=== PATIENT | female | born 1945 | race Caucasian/White ===

== ENCOUNTER 2021-12-02 09:09 | Emergency (ER) | payer MEDICARE, OTHER, SELFPAY ==
[2021-12-02 09:15] VITALS: BP 130/72; PULSE 110; RESP 22; O2SAT 93
[2021-12-02 09:18] VITALS: BP 130/78; PULSE 120; RESP 18; TEMP 36.8; O2SAT 96; BMI 24.5
[2021-12-02 09:30] VITALS: BP 138/86; PULSE 119; RESP 24; O2SAT 94
--- NOTE | 2021-12-02 09:30 | CRLHL7_ITS ---
For Patients: As a result of the Century Cures Act, medical imaging exams and procedure reports are released immediately into your electronic medical record. You may view this report before your referring provider. If you have questions, please contact your health care provider. INDICATION: COUGH, SOB HISTORY: Cough and shortness of breath. COMPARISON: 05/06/2017. TECHNIQUE: Chest one-view portable. FINDINGS: Heart size and pulmonary vasculature are normal. The lungs are clear. There is no pneumothorax. The central airway is normal. The osseous structures are intact. IMPRESSION: Lungs are clear. Dictated by Ghassan Shankar MD @ 12/02/2021 9:57:33 AM Dictated by: Ghassan Shankar MD @ 12/02/2021 09:57:42 (Electronically Signed)
--- NOTE | 2021-12-02 09:32 | ED_ITS ---
HPI - SOB/Dyspnea General Chief Complaint: Shortness of Breath/Dyspnea Stated Complaint: Oxygen low Time Seen by Provider: 12/02/21 09:11 History of Present Illness HPI Narrative: This 76-year-old female comes in with her daughter because of cough and shortness of breath. Her daughter had an oximeter and measured levels in the 70s and 80s% prior to arrival here. Upon arrival here her oximetry is in low to mid 90s on room air but her heart rate is increased at around 120 beats per m inute. She states that symptoms began yesterday and she does report feeling of shortness of breath and a hoarse voice. She also has a sore throat. She does have a prior history of COPD and diabetes. Related Data Home Medications Medication Instructions Recorded Confirmed atorvastatin 40 mg tablet 40 mg PO 11/19/21 11/19/21 blood sugar diagnostic (Contour #10 ea 11/19/21 11/19/21 Next Test Strips) bupropion HCl 150 mg tablet,12 hr tab PO 11/19/21 11/19/21 sustained-release cyclobenzaprine 10 mg tablet 10 mg PO 11/19/21 11/19/21 cyclosporine 0.05 % eye drops in a drp ophthalmic (eye) 11/19/21 11/19/21 dropperette (Restasis) lancets 33 gauge (TRUEplus Lancets) #100 ea 11/19/21 11/19/21 latanoprost 0.005 % eye drops drp ophthalmic (eye) 11/19/21 11/19/21 metformin 500 mg tablet,extended tab PO 11/19/21 11/19/21 release 24 hr amiwcclm-smoalbdxc-hpazazesk 3.5 otic (ear) 11/19/21 11/19/21 mg/mL-10,000 unit/mL-1 % ear solution sertraline 50 mg tablet 50 mg PO 11/19/21 11/19/21 Allergies Allergy/AdvReac Type Severity Reaction Status Date / Time tramadol Allergy Severe Anaphylaxis Verified 11/19/21 19:05 Penicillins Allergy Intermediate Swelling Verified 11/19/21 19:05 of Lip/Tongue/Throat codeine Allergy Mild Dizziness Verified 11/19/21 19:05 Sulfa (Sulfonamide Allergy Mild Rash Verified 11/19/21 19:05 Antibiotics) Review of Systems Status of ROS: Reports: 10 or more systems reviewed and unremarkable except as noted in History and below Narrative: Constitutional: No fevers, no weight gain or loss. Eyes: No discharge. No vision changes. HENT: Sore throat. Left ear pain and jaw pain from TMJ symptoms. Cardiovascular: No chest pain, no palpitations. Respiratory: Cough. Shortness of breath. Gastrointestinal: No abdominal pain, no vomiting, no diarrhea. Genitourinary: No dysuria, no hematuria. Musculoskeletal: Normal range of motion. Skin: No rashes, no pruritis. Neurological: No dizziness, weakness, sensory change, speech change. Endo/Heme/Allergies: No bruising or bleeding. No polydipsia. Pysch: no suicidality, no anxiety, no insomnia. All other systems reviewed and are negative. PFSH PFSH Social History Smoking Status: Former smoker What tobacco products do you use: cigarettes Years smoked: 60 Smoking quit date/years: >15 years ago Do you use any of these nicotine containing products: None Second hand tobacco smoke exposure: No How often do you have a drink containing alcohol: monthly or less How often do you have six or more drinks on one occasion: Less than monthly AUDIT-C Alcohol total score: 2 Non-prescribed substance use: denies use service: No Exam Narrative: Exam Narrative: Constitutional: Well-developed, well-nourished, no acute distress. HEENT: Normocephalic, atraumatic. Neck: Normal range of motion. Nontender. Supple. Heart: Regular. No murmurs. Tachycardia, rate 120 beats per minute. Intact distal pulses. Lungs: Mild decreased air movement with rhonchi. Abdomen: Normal bowel sounds. Nontender. No rebound tenderness. Genitalia: Deferred. Back: No midline tenderness. Normal range of motion. Extremities: Normal range of motion. No injury. Skin: Intact. No rash. Warm. No erythema or pallor. Neurologic: No altered sensation. No weakness. Alert and oriented. Psychiatric: No suicidality. No insomnia. Nursing notes and vitals signs are reviewed. Const: Vital Signs, click to edit/add: Vital Signs - 24 hr 12/02/21 09:18 12/02/21 10:51 Temperature 98.3 F Pulse Rate [Left P ulse Oximeter] 120 H 109 H Respiratory Rate 18 24 Blood Pressure [Le ft Upper Arm] 130/78 120/64 Pulse Oximetry 96 95 Oxygen Delivery Me thod Room Air Room Air Course Vital Signs Vital signs: Initial Vital Signs Temperature 98.3 F 12/02/21 09:18 Temperature Source Temporal Artery Scan 12/02/21 09:18 Pulse Rate 120 H 12/02/21 09:18 Pulse Rhythm 12/02/21 09:18 Pulse Strength 3+ Normal 12/02/21 09:18 Respiratory Rate 18 12/02/21 09:18 Blood Pressure 130/78 12/02/21 09:18 Blood Pressure Mean 95 12/02/21 09:18 Blood Pressure Position Sitting 12/02/21 09:18 Pulse Oximetry 96 12/02/21 09:18 Oxygen Delivery Method 12/02/21 09:18 Vital Signs Temperature 98.3 F 12/02/21 09:18 Pulse Rate 120 H 12/02/21 09:18 Respiratory Rate 18 12/02/21 09:18 Blood Pressure 130/78 12/02/21 09:18 Pulse Oximetry 96 12/02/21 09:18 Oxygen Delivery Method 12/02/21 09:18 Temperature 98.3 F 12/02/21 09:18 Pulse Rate 109 H 12/02/21 10:51 Respiratory Rate 24 12/02/21 10:51 Blood Pressure 120/64 12/02/21 10:51 Pulse Oximetry 95 12/02/21 10:51 Oxygen Delivery Method 12/02/21 10:51 MDM - SOB/Dyspnea MDM Narrative Medical decision making narrative: This 76-year-old female comes in with upper respiratory symptoms. Her home ox imeter showed readings in the 80s %. Upon arrival here her oximetry is 95%. She is maintaining oximetry on room air in the low to mid 90s. She did arrive with tachycardia. She did take Sudafed prior to arrival which may have increased her heart rate. In additionally she is rather fidgety with constant movements of her legs and extremities. This may also trigger some increased heart rate. Upon reexamination she has heart rate in the 90s now and is maintaining sufficient oximetry. Chest x-ray shows no sign of pneumonia. Lab results returned negative for strep, influenza, COVID, and RSV. The patient did receive a DuoNeb but states that she did not get the whole treatment because the oxygen tube became disconnected. She did not contact the nurse when this happened. Nevertheless she states she feels better and feels okay to return home. She did receive an IV dose of Solu-Medrol 125 mg. She understands that this will make her blood glucose elevate temporarily. Lab Data Labs: Lab Results 12/02/21 12/02/21 12/02/21 Range/Units 09:21 10:00 10:00 WBC 11.08 H (4.50-11.00) K/uL RBC 4.08 (4.00-5.20) m/uL Hgb 12.0 (12.0-16.0) gm/dL Hct 36.6 (33.0-51.0) % MCV 90 (80-100) fL MCH 29 (26-34) pg MCHC 33 (32-36) gm/dL RDW Coeff of Blank 12.9 (11.5-15.5) % Plt Count 191 (140-440) K/uL Neut % (Auto) 87.3 H (42.0-72.0) % Lymph % (Auto) 4.4 L (20-44) % [place] % (Auto) 7.8 (0.0-11.0) % Eos % (Auto) 0.3 (0.0-7.0) % Baso % (Auto) 0.1 (0.0-3.0) % Neut # (Auto) 9.70 H (1.7-7.0) K/uL Lymph # (Auto) 0.50 L (0.90-2.90) K/uL [place] # (Auto) 0.90 (0.00-0.90) K/UL Eos # (Auto) 0.00 (0.00-0.50) K/uL Baso # (Auto) 0.00 (0.00-0.30) K/uL Abs Immat Gran (auto) 0.01 (0.00-0.30) K/uL Sodium 132 L (135-149) mmol/L Potassium 4.1 (3.6-5.1) mmol/L Chloride 99 (96-114) mmol/L Carbon Dioxide 24 (20-32) mmol/L BUN 17 (7-30) mg/dL Creatinine 0.7 (0.5-1.5) mg/dL Estimated Creat Clear 41.97 Estimated GFR 90 ml/min Glucose 236 H (60-115) mg/dL Calcium 8.9 (8.4-10.6) mg/dL SARS-CoV-2 (PCR) Negative SARS-CoV-2 (Negative) Influenza Type A (PCR) Negative PCR FLU A (Negative) Influenza Type B (PCR) Negative PCR FLU B (Negative) RSV (PCR) Negative PCR RSV (Negative) Group A Strep DNA (No Detected) 12/02/21 Range/Units 10:00 WBC (4.50-11.00) K/uL RBC (4.00-5.20) m/uL Hgb (12.0-16.0) gm/dL Hct (33.0-51.0) % MCV (80-100) fL MCH (26-34) pg MCHC (32-36) gm/dL RDW Coeff of Blank (11.5-15.5) % Plt Count (140-440) K/uL Neut % (Auto) (42.0-72.0) % Lymph % (Auto) (20-44) % [place] % (Auto) (0.0-11.0) % Eos % (Auto) (0.0-7.0) % Baso % (Auto) (0.0-3.0) % Neut # (Auto) (1.7-7.0) K/uL Lymph # (Auto) (0.90-2.90) K/uL [place] # (Auto) (0.00-0.90) K/UL Eos # (Auto) (0.00-0.50) K/uL Baso # (Auto) (0.00-0.30) K/uL Abs Immat Gran (auto) (0.00-0.30) K/uL Sodium (135-149) mmol/L Potassium (3.6-5.1) mmol/L Chloride (96-114) mmol/L Carbon Dioxide (20-32) mmol/L BUN (7-30) mg/dL Creatinine (0.5-1.5) mg/dL Estimated Creat Clear Estimated GFR ml/min Glucose (60-115) mg/dL Calcium (8.4-10.6) mg/dL SARS-CoV-2 (PCR) (Negative) Influenza Type A (PCR) (Negative) Influenza Type B (PCR) (Negative) RSV (PCR) (Negative) Group A Strep DNA NOT DETECTED (No Detected) Imaging Data Chest x-ray: Radiologist's impression: Heart size and pulmonary vasculature are normal. The lungs are clear. There is no pneumothorax. The central airway is normal. The osseous structures are intact. ECG Data Attestation: I personally reviewed and interpreted this ECG as follows: Interpretation: Sinus tachycardia, rate 112 beats per minute. There are no specific ST or T- wave abnormalities. Discharge Plan Discharge Clinical Impression: Acute upper respiratory infection, Diabetes, COPD (chronic obstructive pulmonary disease) Patient Disposition: Home, Self-Care Condition: Stable Additional Instructions: Use albuterol nebulizer as needed. Continue other current medicines as prescribed. Return if worsening symptoms occur, especially if becoming short of breath. Prescriptions: No Action sertraline 50 mg tablet 50 mg PO cyclosporine [Restasis] 0.05 % dropperette ophthalmic (eye) atorvastatin 40 mg tablet 40 mg PO (DME) lancets [TRUEplus Lancets] 33 gauge misc See Rx Instructions .ROUTE .MEDSUPPLY Qty: 100 Rx Instructions: As directed (DME) Contour Next Test Strips Strip See Rx Instructions .ROUTE .MEDSUPPLY Qty: 10 Rx Instructions: As directed metformin 500 mg tablet extended release 24 hr PO bupropion HCl 150 mg tablet sustained-release 12 hr PO latanoprost 0.005 % drops ophthalmic (eye) cyclobenzaprine 10 mg tablet 10 mg PO Label Comments: TAKE 1 TABLET (10MG) BY MOUTH AT BEDTIME. [id number]-[id number]-IG 3.5-10,000-1 mg/mL-unit/mL-% solution otic (ear) Follow Up/Referrals: Forrest Wilson MD [Primary Care Provider] - Stand Alone Forms: [facility] Info Instructions
--- OUTSIDE RECORDS SUMMARY | 2021-12-02 09:37 | XMS_ITS | Encounter Summary ---
:1945 Author Organization [facility] Address [address] [place] [address] Care Team Providers Name Role Phone Unavailable Primary Care Provider Unavailable Encounter Details Date Type Department Care Team Description 05/03/2021 Orders Only [facility] Calvin Murillo for [place] [facility] OR MD Bruno screening for other [address] [facility] GASTROENTEROLOGY viral diseases [place] [id number] [facility] ([place]) [id number] [address] [place], [place] [address] (Wo rk) Social History Tobacco Use Types Packs/Day Years Used Date Smoking Tobacco: Never Assessed Sex Assigned at Date Recorded Not on file documented as of this encounter Plan of Treatment Scheduled Orders Name Type Priority Associated Diagnoses Order S chedule Asymptomatic COVID-19 Lab Routine Encounter for jean kwok Expected: 05/03/2021 Virus (Coronavirus) by PCR for other shoaib l diseases (Approximate), Expires: 2022 documented as of this encounter Visit Diagnoses Diagnosis Encounter for screening for other viral diseases - Primary documented in this encounter
--- OUTSIDE RECORDS SUMMARY | 2021-12-02 09:37 | XMS_ITS | Encounter Summary ---
:1945 Author Organization [place] Address [address] [facility] [address] Care Team Providers Name Role Phone System, Provider Not In Primary Care Provider Unavailable Reason for Visit Auth/Cert Specialty Diagnoses / Procedures Referred By Contact Refer red To Contact Surgery Diagnoses Common bile duct dilation Common bile duct dilation [K83.8] Rh Periop Services Procedures HC ERCP W/W/O EVARISTO OF SPEC-BRUSH/WASH ENDOSCOPIC RETROGRADE CHOLANGIOPANCREATOGRAPHY ENDOSCOPIC ULTRASOUND, ESOPHAGOSCOPY / UPPER GASTROINTESTINAL TRACT (GI) [address] [place] [address] Phone: Fax: Referral ID Status Reason Start Date Expiration Date Visits Requ ested Visits Authorized [id number] 1 1 Encounter Details Date Type Department Care Team Description 05/24/2021 Hospital Encounter [facility] Shane Murillo PreOP/PostOP MD [place] [address] [facility] [place], [place] [address] [facility] [id number] [facility] [phone] [place], [place] [address] (Wo rk) Social History Tobacco Use Types Packs/Day Years Used Date Smoking Tobacco: Former Cigarettes 1 40 Quit : 05/15/2019 Smokeless Tobacco: Never Tobacco Cessation: Counseling Given: No Alcohol Use Standard Drinks/Week Comments Yes 0 (1 standard drink = 0.6 oz pure alcoho l) rare Sex Assigned at Date Recorded Not on file COVID-19 Exposure Response Date Recorded In the last 10 days, have you been in contact with No / Unsu re 05/24/2021 12:33 PM CDT someone who was confirmed or suspected to have Coronavirus/COVID-19? documented as of this encounter Last Filed Vital Signs Vital Sign Reading Time Taken Comments Blood Pressure 149/76 05/24/2021 3:21 PM CDT Pulse 89 05/24/2021 3:21 PM CDT Temperature 36.4 ??C (97.6 ??F) 05/24/2021 3:21 PM CDT Respiratory Rate 16 05/24/2021 3:21 PM CDT Oxygen Saturation 98% 05/24/2021 3:21 PM CDT Inhaled Oxygen Concentration - - Weight 61.6 kg (135 lb 14.4 oz) 05/24/2021 12:50 PM CDT Height 163.6 cm (5' 4.41) 05/24/2021 12:50 PM CDT Body Mass Index 23.03 05/24/2021 12:50 PM CDT documented in this encounter Discharge Instructions Discharge InstructionsSiomara Jackson RN - 05/24/2021 2:57 PM CDT GENERAL ANESTHESIA OR SEDATION ADULT DISCHARGE INSTRUCTIONS SPECIAL PRECAUTIONS FOR 24 HOURS AFTER SURGERY IT IS NOT UNUSUAL TO FEEL LIGHT-HEADED OR FAINT, UP TO 24 HOURS AFTER SURGERY OR WHILE TAKING PAIN MEDICATION. IF YOU HAVE THESE SYMPTOMS; SIT FOR A FEW MINUTES BEFORE STANDING AND HAVE SOMEONE ASSIST YOU WHEN YOU GET UP TO WALK OR USE THE BATHROOM. YOU SHOULD REST AND RELAX FOR THE NEXT 24 HOURS AND YOU MUST MAKE ARRANGEMENTS TO HAVE SOMEONE STAY WITH YOU FOR AT LEAST 24 HOURS AFTER YOUR DISCHARGE. AVOID HAZARDOUS AND STRENUOUS ACTIVITIES. DO NOTMAKE IMPORTANT DECISIONS FOR [address] ANY VEHICLE OR OPERATE MECHANICAL EQUIPMENT FOR 24 HOURS FOLLOWING THE END OF YOUR SURGERY. EVEN THOUGH YOU MAY FEEL NORMAL, YOUR REACTIONS MAY BE AFFECTED BY THE MEDICATION YOU HAVE RECEIVED. DO NOT DRINK ALCOHOLIC BEVERAGES FOR 24 HOURS FOLLOWING YOUR SURGERY. DRINK CLEAR LIQUIDS (APPLE JUICE, ROHIT JASMINE, 7-UP, BROTH, ETC.). PROGRESS TO YOUR REGULAR DIET YOU FEEL ABLE. YOU MAY HAVE A DRY MOUTH, A SORE THROAT, MUSCLES ACHES OR TROUBLE SLEEPING. THESE SHOULD GO AWAY AFTER 24 HOURS. CALL YOUR DOCTOR FOR ANY OF THE FOLLOWING: SIGNS OF INFECTION (FEVER, GROWING TENDERNESS AT THE SURGERY SITE, A LARGE AMOUNT OF DRAINAGE OR BLEEDING, SEVERE PAIN, FOUL-SMELLING DRAINAGE, REDNESS OR SWELLING. IT HAS BEEN OVER 8 TO 10 HOURS SINCE SURGERY AND YOU ARE STILL NOT ABLE TO URINATE (PASS WATER). DR. SHANE MURILLO M.D. CLINIC PHONE NUMBER: [phone] [place] [facility] documented in this encounter Medications at Time of Discharge Medication Sig Dispensed Refills Start Date End Date Ascorbic Acid (VITAMIN C PO) Take 500 mg by 0 mouth daily atorvastatin (LIPITOR) 40 MG Take 40 mg by mouth 0 03/26/2021 tablet in the morning. At bedtime BIOTIN PO Take by mouth daily 0 blood glucose (CONTOUR NEXT daily 0 05/06/19 22 TEST) test strip buPROPion (WELLBUTRIN SR) Take 150 mg by 0 2020 150 MG 12 hr tablet mouth cetirizine (ZYRTEC) 10 MG Take 10 mg by mouth 0 tablet in the morning. cholecalciferol 50 MCG (2000 Take 2,000 Units by 0 10/23/2020 UT) tablet mouth in the morning. cyclobenzaprine (FLEXERIL) Take 10 mg by mouth 0 10/10/2020 10 MG tablet in the morning. At bedtime cycloSPORINE (RESTASIS) 0.05 Place 1 drop into 0 % ophthalmic emulsion both eyes in the morning and 1 drop in the evening. metFORMIN (GLUCOPHAGE-XR) Take 500 mg by 0 2021 500 MG 24 hr tablet mouth At Bedtime Multiple Vitamin Take 1 tablet by 0 (MULTIVITAMIN ADULT PO) mouth daily naproxen (NAPROSYN) 500 MG Take 500 mg by 0 12/27 tablet mouth as needed (every 12 hours) nitroGLYcerin (NITROSTAT) Place 0.4 mg under 0 0.4 MG sublingual tablet the tongue every 5 minutes as needed for chest pain States she has medication, never taken sertraline (ZOLOFT) 50 MG Take 50 mg by mouth 0 0 03/05/2021 tablet in the morning. VITAMIN D PO Take 4,000 Units by 0 mouth daily documented as of this encounter H&P Notes Marcelo Cardenas MD - 05/24/2021 1:08 PM CDT I have reviewed the surgical (or preoperative) H&P that is linked to this encounter, and examined the patient. There are no significant changes Clinical Conditions Present on Arrival: Clinically Significant Risk Factors Present on Admission Source Note - Scan, Provider - 05/22/2021 2:05 PM CDT documented in this encounter Plan of Treatment Not on filedocumented as of this encounter Procedures Procedure Name Priority Date/Time Associated Comments Diagnosis GLUCOSE BY METER Routine 05/24/2021 2:38 Results for PM CDT this procedure are in the results section. UPPER EUS Routine 05/24/2021 2:14 Results for PM CDT this procedure are in the results section. ENDOSCOPIC RETROGRADE 05/24/2021 1:56 Common bile duct CHOLANGIOPANCREATOGRAPHY PM CDT dilation INR STAT 05/24/2021 1:19 Results for PM CDT this procedure are in the results section. COMPREHENSIVE METABOLIC PANEL STAT 05/24/2021 1:19 Results for PM CDT this procedure are in the results section. CBC WITH PLATELETS STAT 05/24/2021 1:19 Result s for PM CDT this procedure are in the results section. GLUCOSE BY METER Routine 05/24/2021 1:12 Results for PM CDT this procedure are in the results section. documented in this encounter Results Glucose by meter (05/24/2021 2:38 PM CDT) athologist Signature GLUCOSE BY 90 70 - 99 05/24/2021 LABORATORY METER POCT mg/dL 2:46 PM CDT POC Specimen (Source) Anatomical Collection Method Collection Time Re ceived Time Location / / Volume Laterality Blood, Capillary BLOOD SPECIMEN / 05/24/2021 2:38 05/11 2:46 Unknown PM CDT PM CDT Shane [facility] POCT Performing Organization Address City/State/ZIP Code Phon e [place] [address] Care Lab [address] Lab (1st floor, no room number) UPPER EUS (05/24/2021 2:14 PM CDT) Component Value Ref Test Analysis Performed At [facility] gist Range Method Time Signature Upper EUS [facility] RADIOLOGY RESULTS Patient Name: Mildred Cox ? Procedure Date: 05/24 2:14 PM ? Account Num desire: [id number] Date of : 1945 ?Admit Type: Out patient Age: 75 ? Gender: Female Attending MD: SHANE MURILLO MD Total Sedation Yuri e: Instrument Name: 259 - Linear EUS ? Procedure: ?Upper EUS Indications: ?Common bile duct dilation (etiology unknown) seen ?on CT scan Providers: ?SHANE MURILLO MD (Doctor) Referring MD: ? Medicines: ?Monitored Anesthesia Care Complications: ?No immediate complications. Procedure: ?Pre-Anesthesia Assessment: ?- Prior to the procedure, a History and Physical ?was performed, and patient medications and ?allergies were reviewed. The patient is competent. ?The risks and benefits of the procedure and the ?sedation options and risks were discussed with the ?patient. All questions were answered and informed ?consent was obtained. Patient identification and ?proposed procedure were verified by the physician ?in the pre-procedure area. Mental Status ?E xamination: alert and oriented. Airway ?Examination: normal oropharyngeal airway and neck ?mobility. Respiratory Examination: clear to ?auscultation. CV Examination: normal. ASA Grade ?Assessment: II - A patient with mild systemic ?disease. After reviewing the risks and benefits, ?the patient was deemed in satisfactory condition to ?undergo the procedure. The anesthesia plan was to ?use general anesthesia. Immediately prior to ?administration of medications, the patient was ?re-assessed for adequacy to receive sedatives. The ?heart rate, respiratory rate, oxygen saturations, ?blood pressure, adequacy of pulmonary ventilation, ?and response to care were monitored throughout the ?procedure. The physical status of the patient was ?re-assessed after the procedure. ?After obtaining informed consent, the endoscope was ?passed under direct vision. Throughout the ?procedure, the patient's blood pressure, pulse, and ?oxygen saturations were monitored continuously. The ?Olympus Exera II Ultrasound Gastrovideoscope, ?Linear, Model # [id number], Endora #259, SN # ?[id number] was introduced through the mouth, and ?advanced to the third part of duodenum. The upper ?EUS was accomplished without difficulty. The ?patient tolerat ed the procedure well. ? Findings: ? ENDOSCOPIC FINDING: : ? The lower third of the esophagus was normal. ? The entire examined stomach was normal. ? The examined duodenum was normal. ? ENDOSONOGRAPHIC FINDING: : ? There was no sign of significant endosonographic abno rmality in the ? ampulla. No masses were identified. ? There was no sign of significant endosonographic abno rmality in the ? common bile duct. The maximum marii meter of the duct was 3 mm. No stones, ? no biliary sludge, ducts of normal caliber and ducts with regular ? contour were identified. ? Moderate hyperechoic material consistent with sludge was visualized ? endosonographically in the gallbladder. ? There was no sign of significant endosonographic abnormality in the left ? lobe of the liver and in the right lobe of the liver. No focal pathology ? was identified. ? There was no sign of significant endosonographic abno rmality in the ? pancreatic head, pancreatic body and pancreatic gaby l. The pancreatic ? duct measured up to 2 mm in diameter in the hea d and 1 mm in the body ? and tail. No masses, no cysts. ? The aortopulmonary region (level 5), subcarinal mediastinum (level 7) ? and celiac region (level 20) nodes were e ndosonographically normal. No ? pathologic lymphadenopathy was identified. ? Impression: ? - Normal lower third of eso phagus. ?- Normal stomach. ?- Normal examined duo denum. ?- There was no sign of significant pathology in the ?ampulla. ?- There was no sign of significant pathology in the ?common bile duct. ?- Hyperechoic material consistent with sludge was ?visualized endosonographically in the gallbladder. ?- There was no evidence of significant pathology in ?the left lobe of the liver and in the right lobe of ?the liver. ?- There was no sign of significant pathology in the ?pancreatic head, pancreatic body and pancreatic ?tail. Recommendation: ? - Observe patient's clinical course. ? Procedure Code(s): ? --- Professional --- ? 00810, Esophagogastroduodenoscopy , flexible, transoral; with endoscopic ? ultrasound examinatio n, including the esophagus, stomach, and either the ? duodenum or a surgically altered stomach where the jejunum is examined ? distal to the anastomosis CPT copyright 2020 [employer]. All rights reserved. The codes documented in this report are prelimin davidson and upon silo tender review may be revised to meet current compliance requirements. Shane Murillo M.D. SHANE MURILLO MD 05/24/2021 2:50:31 PM I was physically present for the entire viewing portion of t he exam. SHANE MURILLO MD Number of Addenda: 0 Note Initiated On: 05/24/2021 2:14 PM MRN: ?[id number] Procedure Date: ? 05/24/2021 2:14:28 PM Total Procedure Duration: 0 hours 5 minutes 24 seconds Estimated Blood Loss: ? Scope In: 2:23:37 PM Scope Out: 2:29:01 PM Specimen (Source) Anatomical Collection Method Collection Time Re ceived Time Location / / Volume Laterality 05/24/2021 2:14 PM CDT Shane Murillo MD PROCEDURES Performing Organization Address City/State/ZIP Code Phon e Number RADIOLOGY RESULTS INR (05/24/2021 1:19 PM CDT) P athologist Signature INR 1.03 0.85 - 1.15 05/24/2021 [facility] 1:51 PM CDT Specimen Anatomical Collection Method / Collection Time Recei ruth Time (Source) Location / Volume Laterality Blood STRUCTURE OF LEFT Venipuncture / 05/24/2021 1:19 05/24 1:27 HAND / Unknown Unknown PM CDT PM CDT Shane Murillo MD LAB - BLOOD ORDERABLES Performing Organization Address City/State/ZIP Code Ph[place] [phone] Care Lab [address] Lab (1st floor, no room number) (ABNORMAL) Comprehensive metabolic panel (05/24/2021 1:19 PM CDT) [facility] gist Method Time Signature Sodium 139 133 - 144 05/24/2021 LABORATORY mmol/L 2:10 PM CDT Potassium 4.1 3.4 - 5.3 05/24/2021 LABORATORY mmol/L 2:10 PM CDT Chloride 106 94 - 109 05/24/2021 LABORATORY mmol/L 2:10 PM CDT Carbon Dioxide 27 20 - 32 05/24/2021 LABORATORY (CO2) mmol/L 2:10 PM CDT Anion Gap 6 3 - 14 05/24/2021 LABORATORY mmol/L 2:10 PM CDT Urea Nitrogen 23 7 - 30 05/24/2021 LABORATORY mg/dL 2:10 PM CDT Creatinine 0.84 0.52 - 05/24/2021 [facility] 1.04 mg/dL 2:10 PM CDT Calcium 9.3 8.5 - 10.1 05/24/2021 LABORATORY mg/dL 2:10 PM CDT Glucose 107 (H) 70 - 99 05/24/2021 LABORATORY mg/dL 2:10 PM CDT Alkaline 47 40 - 150 05/24/2021 LABORATORY Phosphatase U/L 2:10 PM CDT AST 15 0 - 45 U/L 05/24/2021 [facility] 2:10 PM CDT ALT 26 0 - 50 U/L 05/24/2021 [facility] 2:10 PM CDT Protein Total 7.1 6.8 - 8.8 05/24/2021 LABORATORY g/dL 2:10 PM CDT Albumin 3.9 3.4 - 5.0 05/24/2021 LABORATORY g/dL 2:10 PM CDT Bilirubin Total 0.6 0.2 - 1.3 05/24/2021 LABORATORY mg/dL 2:10 PM CDT GFR Estimate 73 >60 05/24/2021 LABORATORY mL/min/1.7 2:10 PM CDT 3m2 Comment: Effective January 30, 2021 eGF Rcr in adults is calculated using the 2020 CKD-EPI creatinine equation which includ es age and gender (Johan et al., NEJ, DOI: 10.1056/UVDYvs2020838) Specimen Anatomical Collection Method / Collection Time Recei ruth Time (Source) Location / Volume Laterality Blood STRUCTURE OF LEFT Venipuncture / 05/24/2021 1:19 05/24 1:28 HAND / Unknown Unknown PM CDT PM CDT Shane Murillo MD LAB - BLOOD ORDERABLES Performing Organization Address City/State/ZIP Code [place] [phone] Care Lab [address] Lab (1st floor, no room number) (ABNORMAL) CBC with platelets (05/24/2021 1:19 PM CDT) Analysis Performed At Patho logist Time Signature WBC Count 4.1 4.0 - 11.0 05/24/2021 [facility] 10e3/uL 1:35 PM CDT RBC Count 4.93 3.80 - 05/24/2021 [facility] 5.20 1:35 PM CDT 10e6/uL Hemoglobin 14.5 11.7 - 05/24/2021 [facility] 15.7 g/dL 1:35 PM CDT Hematocrit 44.4 35.0 - 05/24/2021 [facility] 47.0 % 1:35 PM CDT MCV 90 78 - 100 05/24/2021 [facility] fL 1:35 PM CDT MCH 29.4 26.5 - 05/24/2021 [facility] 33.0 pg 1:35 PM CDT MCHC 32.7 31.5 - 05/24/2021 [facility] 36.5 g/dL 1:35 PM CDT RDW 13.5 10.0 - 05/24/2021 [facility] 15.0 % 1:35 PM CDT Platelet Count 144 (L) 150 - 450 05/24/2021 [facility] 10e3/uL 1:35 PM CDT Specimen Anatomical Collection Method / Collection Time Recei ruth Time (Source) Location / Volume Laterality Blood STRUCTURE OF LEFT Venipuncture / 05/24/2021 1:19 05/24 1:28 HAND / Unknown Unknown PM CDT PM CDT Shane Murillo MD LAB - BLOOD ORDERABLES Performing Organization Address City/State/ZIP Code [place] [phone] Care Lab [address] Lab (1st floor, no room number) Glucose by meter (05/24/2021 1:12 PM CDT) P athologist Signature GLUCOSE BY 95 70 - 99 05/24/2021 [facility] METER POCT mg/dL 1:19 PM CDT POC Specimen (Source) Anatomical Collection Method Collection Time Re ceived Time Location / / Volume Laterality Blood, Capillary BLOOD SPECIMEN / 05/24/2021 1:12 05/11 1:19 Unknown PM CDT PM CDT Shane Murillo MD LAB - BEAKER POCT Performing Organization Address City/State/ZIP Code Phon e Number [place] [address] Care Lab [address] Lab (1st floor, no room number) documented in this encounter Visit Diagnoses Not on filedocumented in this encounter Administered Medications Inactive Administered Medications - up to 3 most recent administrations Medication Order MAR Action Action Date Dose Rate Site fentaNYL (PF) (SUBLIMAZE) injection 25 m cg 25 mcg, Intravenous, EVERY 5 MIN PRN, moderate to rey re pain, Starting on [facility] 05/24/21 at 1439, Administer fentaNYL (MORELAND BLIMAZE) for acute pain control. Move to HYDROmorphone (DILAUDID): - IF patient has received up to 4 doses (100 mcg) of fentaNYL (SUBLIMAZE), OR - IF severe pain (pain score greater than or equal to seven (7) or inability of patient to par ticipate in post op recovery due to pain) AFTER 2 doses fentaNYL (SUBLIMAZE). WAIT 5 minutes AFTER last fentaNYL (SUBLIMAZE) dose before administering HYDROmorphone (DILAUDID). Postop Anesthesia Phase I only. Notify Provider to assess for uncontroll ed pain or analgesic side effects. Do NOT revert back to fentanyl (SUBLIMAZE) afte r moving to HYDROmorphone (DILAUDID)., PACU fentaNYL (PF) (SUBLIMAZE) injection 25 m cg 25 mcg, Intravenous, EVERY 15 MIN PRN, other, acute pa in while in Phase II, Starting on Gisell 05/24/21 at 1439, Up to a total of 100 mcg. Use as a short acting IV agent for acute pain control. Patient must be monitore d a minimum of 30 minutes before leaving the facility and meet all Phase II disc harge criteria., Phase ll flumazenil (ROMAZICON) injection 0.2 mg 0.2 mg, Intravenous, EVERY 1 MIN PRN, benzodiazepine r eversal, over sedation, Administer over 1 Minutes, Starting on [facility] 05/24/21 at 1450, For 12 hours, Give over 15 seconds. If inadequate response after 45 seconds, may repeat up to a MAX total dose of 1 mg. Continue monitoring until discharge criteria are met for a minimum of 2 hours Irritant. Use with caution in patients on nova odiazepine therapy. HYDROmorphone (DILAUDID) injection 0.2 m g 0.2 mg, Intravenous, EVERY 5 MIN PRN, moderate to rey re pain, Starting on [facility] 05/24/21 at 1439, Administer HYDROmorphon e (DILAUDID) up to a total of 5 doses (1 mg) for moderate to severe pain. Notify Provider to assess for uncontrolled pain or analgesic side effects., PACU ketorolac (TORADOL) injection 15 mg 15 mg, Intravenous, EVERY 6 HOURS PRN, moderate to sev ere pain, Starting on [facility] 05/24/21 at 1440, For 5 days, IF celecoxib (celeBREX) w as given pre-operatively, start ketorolac (TORADOL) 12 hours after celecoxib (celeBREX) given. Can cause pain on injection. If ordered intravenously (IV) : administ er through a running maintenance fluid over 1 minute followed by a flush. If patient complains of pain on injection, may dilute 15-30 mg in 5 mL and push ove r 1 to 2 minutes. , PACU/Phase II labetalol (NORMODYNE/TRANDATE) injection 10 mg 10 mg, Intravenous, ONCE PRN, other, for Systolic Blood Pressure greater than 160 mmHg while Heart Rate greater than 60 bp m, Starting on [facility] 05/24/21 at 1439, For 1 dose, For PACU USE ONLY. PROTECT FROM LIGHT., PACU lactated ringers infusion at 25 mL/hr, Intravenous, CONTINUOUS, IF patient NOT on dialysis., Pre-procedure, Starting on [facility] 05/24/21 at 1300, Until [facility] 05/24/21 at 1728 lactated ringers infusion at 100 mL/hr, Intravenous, CONTINUOUS, Continue until IV catheter is weaned, PACU/Phase II, Starting on Gisell 05/24/21 at 1500, Until [facility] 05/24/21 at 1728 lidocaine (LMX4) cream Topical, EVERY 1 HOUR PRN, pain, with VAD insertion, S tarting on [facility] 05/24/21 at 1255, Apply at least 30 minutes prior to VAD insertion in divided doses as needed for size of site for insertion. MAX Dose: 2.5 g (?? of 5 g tube) Do NOT give if patient has a history of allergy to any local anesthetic or any mansoor product. Do NOT use both lidocaine intradermal/subcu taneous injection and the lidocaine cream on the same site., Pre-procedure lidocaine (LMX4) cream Topical, EVERY 1 HOUR PRN, pain, with VAD insertion, S tarting on [facility] 05/24/21 at 1255, Apply at least 30 minutes prior to VAD insertion in divided doses as needed for size of site for insertion. MAX Dose: 2.5 g (?? of 5 g tube) Do NOT give if patient has a history of allergy to any local anesthetic or any mansoor product. Do NOT use both lidocaine intradermal/subcu taneous injection and the lidocaine cream on the same site., Pre-procedure lidocaine (LMX4) cream Topical, EVERY 1 HOUR PRN, pain, with VAD insertion, S tarting on [facility]isell 05/24/21 at 1256, Apply at least 30 minutes prior to VAD insertion in divided doses as needed for size of site for insertion. MAX Dose: 2.5 g (?? of 5 g tube) Do NOT give if patient has a history of allergy to any local anesthetic or any mansoor product. Do NOT use both lidocaine intradermal/subcu taneous injection and the lidocaine cream on the same site., Pre-procedure lidocaine 1 % 0.1-1 mL 0.1-1 mL, Other, EVERY 1 HOUR PRN, mild pain with VAD insertion, Starting on [facility] 05/24/21 at 1255, MAX dose 1 mL subcutane ous OR intradermal along the side of the vein in divided doses as needed for VAD insertion. Do NOT give if patient has a history of allergy to any local anesthet ic or any mansoor product. Do NOT use both lidocaine intradermal/subcutaneous injec tion and the lidocaine cream on the same site., Pre-procedure lidocaine 1 % 0.1-1 mL 0.1-1 mL, Other, EVERY 1 HOUR PRN, mild pain with VAD insertion, Starting on [facility] 05/24/21 at 1255, MAX dose 1 mL subcutane ous OR intradermal along the side of the vein in divided doses as needed for VAD insertion. Do NOT give if patient has a history of allergy to any local anesthet ic or any mansoor product. Do NOT use both lidocaine intradermal/subcutaneous injec tion and the lidocaine cream on the same site., Pre-procedure lidocaine 1 % 0.1-1 mL Given 05/24/2021 2:16 PM CDT 30 mg 0.1-1 mL, Other, EVERY 1 HOUR PRN, mild pain with VAD insertion, Starting on [facility] 05/24/21 at 1256, MAX dose 1 mL subcutaneous OR intradermal along the side of the vein in divided doses as needed for VAD insertion. Do NOT give if patient has a history of allergy to any local anesthetic or any mansoor product. Do NOT use both lidocaine intradermal/subcutaneous injection and the lidocaine cream on the same site., Pre-procedure meperidine (DEMEROL) injection 12.5 mg 12.5 mg, Intravenous, EVERY 15 MIN PRN, post anesthesia shivering, Starting on [facility] 05/24/21 at 1440, For 2 doses, PACU/Phase II naloxone (NARCAN) injection 0.2 mg 0.2 mg, Intravenous, EVERY 2 MIN PRN, op ioid reversal, Starting on [facility] 05/24/21 at 1450, Administer intravenous route when available and notify provider when administered. For unintended sedation or respiratory depression if all of the below criteria are met: ~ respiratory rate LES S than or EQUAL to 8. ~SaO2 less than 92% and or/end-tidal CO2 is greater than 50. ~ the patient is receiving an opioid, has unintended sedations assessed as RASS (-3), and is cur rently not on mechanical ventilation. RASS scale moderate (-3) is movement or eye opening to voice but no eye contact. Patient Monitoring Once the patient has demonstrated a response to the naloxone, continue to monitor respiratory rate, depth, oxygen saturation and end-tidal CO2 (if available) every 15 mi nutes x 2, then every 30 minutes x 2, then every 1 hour x 1 after each naloxone dose. Consider tr ansfer to ICU if patient respiratory parameters have not improved after 4 nalox one doses. naloxone (NARCAN) injection 0.2 mg 0.2 mg, Intramuscular, EVERY 2 MIN PRN, opioid reversal, Starting on [facility] 05/24/21 at 1450, Administer intramuscular if an int ravenous route is not available and notify provider when administered. For unintend ed sedation or respiratory depression if all of the below criteria are met: ~ respiratory rate LESS than or EQUAL to 8. ~SaO2 less than 92% and or/end-tidal CO2 is greater th an 50. ~ the patient is receiving an opioid, has unintended sedations assessed as RASS (-3), and is currently not on mechanical ventilation. RASS scale moderate (-3) is movement or eye opening to voice but no eye contact. Patient Monitoring Once the patient has demonstrated a response to the naloxone, continue to m onitor respiratory rate, depth, oxygen saturation and end-tidal CO2 (if availab le) every 15 minutes x 2, then every 30 minutes x 2, then every 1 hour x 1 after each naloxone dose. Consider transfer to ICU if patient respiratory parameters have not improved after 4 naloxone doses. naloxone (NARCAN) injection 0.4 mg 0.4 mg, Intravenous, EVERY 2 MIN PRN, op ioid reversal, Starting on Gisell 05/24/21 at 1450, Administer intravenous route when available and notify provider when administered. For unintended sedation or respiratory depression if all of the below criteria are met: ~ respiratory rate LES S than or EQUAL to 8. ~ SaO2 less than 92% and or/end-tidal CO2 is greater than 50. ~ the patient is receiving an opioid, has unintended sedation assessed as RASS (-4 ) or (-5) and patient is currently not on mechanical ventilation. RASS scale (-4) is deep sedation with no response to voice but movement or eye opening to physical stimulation. R ASS scale (-5) is unarousable. Patient Monitoring Once the patient has demonstrated a response to the naloxone, continue to monitor respiratory rate, depth, oxygen saturation and end-tidal CO2 (if available) every 15 mi nutes x 2, then every 30 minutes x 2, then every 1 hour x 1 after each naloxone dose. Consider tr ansfer to ICU if patient respiratory parameters have not improved after 4 nalox one doses. naloxone (NARCAN) injection 0.4 mg 0.4 mg, Intramuscular, EVERY 2 MIN PRN, opioid reversal, Starting on Gisell 05/24/21 at 1450, Administer intramuscular if an int ravenous route is not available and notify provider when administered. For unintend ed sedation or respiratory depression if all of the below criteria are met: ~ res piratory rate LESS than or EQUAL to 8. ~ SaO2 less than 92% and or/end-tidal CO2 is greater andrea n 50. ~ the patient is receiving an opioid, has unintended sedation assessed as RASS (-4) or (-5) and patient is currently not on mechanical ventilation. RA SS scale (-4) is deep sedation with no response to voice but movement or eye opening to physical stimulation. RASS scale (-5) is unarousa ble. Patient Monitoring Once the patient has demonstrated a response to the nalox one, continue to monitor respiratory rate, depth, oxygen saturation and end-tidal CO2 (if availab le) every 15 minutes x 2, then every 30 minutes x 2, then every 1 hour x 1 after each naloxone dose. Consider transfer to ICU if patient respiratory parameters have not improved after 4 naloxone doses. ondansetron (ZOFRAN) injection 4 mg 4 mg, Intravenous, EVERY 30 MIN PRN, alverto sea, Administer over 2-5 Minutes, Starting on Gisell 05/24/21 at 1440, For 2 doses, MAX total dose = 8 mg, including OR dosing. If not resolved in 15 minutes, then go to step 2 [prochlo rperazine (COMPAZINE), if ordered]. Irritant., PACU/Phase II ondansetron (ZOFRAN) injection 4 mg 4 mg, Intravenous, EVERY 6 HOURS PRN, nausea, vomiting , Administer over 2-5 Minutes, Starting on Gisell 05/24/21 at 1450, This is Step 1 of nausea and vomiting management. If nausea not resolved in 15 minutes, go t o Step 2 prochlorperazine (COMPAZINE). Irritant. ondansetron (ZOFRAN-ODT) ODT tab 4 mg 4 mg, Oral, EVERY 30 MIN PRN, nausea, St arting on Gisell 05/24/21 at 1440, For 2 doses, MAX total dose = 8 mg, including OR dosi ng. If not resolved in 15 minutes, then go to step 2 [prochlorperazine (COMPAZINE), if ordered]. With dry hands, peel back foil backing and gently remove tablet. Do not push ora l disintegrating tablet through foil backing. Administer immediately on tongue and oral disintegrating tablet dissolves in seconds, then swallow with saliva. Liquid not required., PACU/Phase II ondansetron (ZOFRAN-ODT) ODT tab 4 mg 4 mg, Oral, EVERY 6 HOURS PRN, nausea, v omiting, Starting on Gisell 05/24/21 at 1450, This is Step 1 of nausea and vomiting management. If n ausea not resolved in 15 minutes, go to Step 2 prochlorperazine (COMPAZINE). Do not push through foil backing. Peel back foil and gently remove. Place on to ngue immediately. Administration with liquid unnecessary W ith dry hands, peel back foil backing and gently remove tablet. Do not push oral d isintegrating tablet through foil backing. Administer immediately on tongue and oral disintegrati ng tablet dissolves in seconds, then swallow with saliva. Liquid not required . prochlorperazine (COMPAZINE) injection 5 mg 5 mg, Intravenous, EVERY 6 HOURS PRN, nausea, vomiting , Administer over 1-2 Minutes, Starting on Fri05/24/21 at 1440, PACU/Phase I I sodium chloride (PF) 0.9% PF flush 3 mL 3 mL, Intracatheter, EVERY 8 HOURS, First dose on Fri05/24/21 at 1300, to lock peripheral IV dormant line, Pre-procedure sodium chloride (PF) 0.9% PF flush 3 mL 3 mL, Intracatheter, EVERY 1 MIN PRN, li ne flush, other, to ensure patency or to lock dormant line, Starting on Fri05/24/21 at 1255, Pr e-procedure sodium chloride (PF) 0.9% PF flush 3 mL 3 mL, Intracatheter, EVERY 8 HOURS, First dose on Fri05/24/21 at 1300, to lock peripheral IV dormant line, Pre-procedure sodium chloride (PF) 0.9% PF flush 3 mL 3 mL, Intracatheter, EVERY 1 MIN PRN, li ne flush, other, to ensure patency or to lock dormant line, Starting on Gisell 05/24/21 at 1255, Pr e-procedure sodium chloride (PF) 0.9% PF flush 3 mL 3 mL, Intracatheter, EVERY 8 HOURS, First dose on Gisell 05/24/21 at 1300, to lock peripheral IV dormant line, Pre-procedure sodium chloride (PF) 0.9% PF flush 3 mL 3 mL, Intracatheter, EVERY 1 MIN PRN, li ne flush, other, to ensure patency or to lock dormant line, Starting on Gisell 05/24/21 at 1256, Pr e-procedure documented in this encounter Active and Recently Administered Medications Times are shown in CDT. Scheduled Medication Order 05/22/2021 05/23/2021 05/24/2021 sodium chloride (PF) 0.9% PF flush 3 mL 1300 (Canceled Entry - Provider: Orders Generic Provider - Comment: Automatically canceled at discontinue of medication order) 3 mL, Intracatheter, EVERY 8 HOURS, Firs t dose on Gisell 05/24/21 at 1300, to lock peripheral IV dormant line, Pre-procedure sodium chloride (PF) 0.9% PF flush 3 mL 1300 (Canceled Entry - Provider: Orders Generic Provider - Comment: Automatically canceled at discontinue of medication order) 3 mL, Intracatheter, EVERY 8 HOURS, Firs t dose on Gisell 05/24/21 at 1300, to lock peripheral IV dormant line, Pre-procedure sodium chloride (PF) 0.9% PF flush 3 mL 1300 (Canceled Entry - Provider: Orders Generic Provider - Comment: Automatically canceled at discontinue of medication order) 3 mL, Intracatheter, EVERY 8 HOURS, Firs t dose on Gisell 05/24/21 at 1300, to lock peripheral IV dormant line, Pre-procedure Continuous Medication Order 05/22/2021 05/23/2021 05/24/2021 lactated ringers infusion 1300 ( Canceled Entry - Provider: Orders Generic Provider - Comment: Automatically canceled at discontinue of medication order) at 25 mL/hr, Intravenous, CONTINUOUS, IF patient NOT on dialysis., Pre- procedure, Starting on Gisell 05/24/21 at 1300, Until Gisell 05/24/21 at 1728 lactated ringers infusion 1500 ( Canceled Entry - Provider: Orders Generic Provider - Comment: Automatically canceled at discontinue of medication order) at 100 mL/hr, Intravenous, CONTINUOUS, C ontinue until IV catheter is weaned, PACU/Phase II, Starting on Gisell 05/24/21 at 1500, Until Gisell 05/24/21 at 1728 PRN Medication Order 05/22/2021 05/23/2021 05/24/2021 fentaNYL (PF) (SUBLIMAZE) injection 25 mcg 25 mcg, Intravenous, EVERY 5 MIN PRN, mo derate to severe pain, Starting on Gisell 05/24/21 at 1439, Administer fentaNYL (SUBLIMAZE) for acute pain control. Move to HYDROmorphone (DILAUDID): - IF patient has received up to 4 doses (100 mcg) of fen taNYL (SUBLIMAZE), OR - IF severe pain (pain score greater than or equal to seven (7) or inability of patient to participate in post op recovery due to pain) AFTE R 2 doses fentaNYL (SUBLIMAZE). WAIT 5 m inutes AFTER last fentaNYL (SUBLIMAZE) dose before administering HYDROmorphone (DILAUDID). Postop Anesthesia Phase I only. Notify Provider to assess for uncontrol led pain or analgesic side effects. Do N OT revert back to fentanyl (SUBLIMAZE) after moving to HYDROmorphone (DILAUDID)., PACU fentaNYL (PF) (SUBLIMAZE) injection 25 mcg 25 mcg, Intravenous, EVERY 15 MIN PRN, o ther, acute pain while in Phase II, Starting on Gisell 05/24/21 at 1439, Up to a total of 100 mcg. Use as a short acting IV agent for acute pain control. Patient must be monitored a minimum of 30 minutes be fore leaving the facility and meet all Phase II discharge criteria., Phase ll flumazenil (ROMAZICON) injection 0.2 mg 0.2 mg, Intravenous, EVERY 1 MIN PRN, be nzodiazepine reversal, over sedation, Administer over 1 Minutes, Starting on Gisell 05/24/21 at 1450, For 12 hours, Give over 15 seconds. If inadequate response after 45 seconds, may repeat up to a MAX tota l dose of 1 mg. Continue monitoring until discharge criteria are met for a minimum of 2 hours Irritant. Use with caution in patients on benzodiazepine therapy. HYDROmorphone (DILAUDID) injection 0.2 mg 0.2 mg, Intravenous, EVERY 5 MIN PRN, mo derate to severe pain, Starting on Gisell 05/24/21 at 1439, Administer HYDROmorphone (DILAUDID) up to a total of 5 doses (1 mg) for moderate to severe pain. Notify Pr ovider to assess for uncontrolled pain or analgesic side effects ., PACU ketorolac (TORADOL) injection 15 mg 15 mg, Intravenous, EVERY 6 HOURS PRN, m oderate to severe pain, Starting on Gisell 05/24/21 at 1440, For 5 days, IF celecoxib (celeBREX) was given pre-operatively, start ketorolac (TORADOL) 12 hours after c elecoxib (celeBREX) given. Can cause hermes n on injection. If ordered intravenously (IV) : administer through a running maintenance fluid over 1 minute followed by a flush. If patient complains of pain on injection, may dilute 15-30 mg in 5 mL a nd push over 1 to 2 minutes. , PACU/Phase II labetalol (NORMODYNE/TRANDATE) injection 10 mg 10 mg, Intravenous, ONCE PRN, other, for Systolic Blood Pressure greater than 160 mmHg while Heart Rate greater than 60 bpm, Starting on Gisell 05/24/21 at 1439, For 1 dose, For PACU USE ONLY. PROTECT FROM LIGHT., PACU lidocaine (LMX4) cream Topical, EVERY 1 HOUR PRN, pain, with VA D insertion, Starting on Gisell 05/24/21 at 1255, Apply at least 30 minutes prior to VAD insertion in divided doses as needed for size of site for insertion. MAX Dose : 2.5 g (?? of 5 g tube) Do NOT give if patient has a history of allergy to any local anesthetic or any mansoor product. Do NOT use both lidocaine intradermal/subcutaneous injection and the lidocaine cream on the same site., Pre-procedure lidocaine (LMX4) cream Topical, EVERY 1 HOUR PRN, pain, with VA D insertion, Starting on Gisell 05/24/21 at 1255, Apply at least 30 minutes prior to VAD insertion in divided doses as needed for size of site for insertion. MAX Dose : 2.5 g (?? of 5 g tube) Do NOT give if patient has a history of allergy to any local anesthetic or any mansoor product. Do NOT use both lidocaine intradermal/subcutaneous injection and the lidocaine cream on the same site., Pre-procedure lidocaine (LMX4) cream Topical, EVERY 1 HOUR PRN, pain, with VA D insertion, Starting on Gisell 05/24/21 at 1256, Apply at least 30 minutes prior to VAD insertion in divided doses as needed for size of site for insertion. MAX Dose : 2.5 g (?? of 5 g tube) Do NOT give if patient has a history of allergy to any local anesthetic or any mansoor product. Do NOT use both lidocaine intradermal/subcutaneous injection and the lidocaine cream on the same site., Pre-procedure lidocaine 1 % 0.1-1 mL 0.1-1 mL, Other, EVERY 1 HOUR PRN, mild pain with VAD insertion, Starting on Gisell 05/24/21 at 1255, MAX dose 1 mL subcutaneous OR intradermal along the side of the vein in divided doses as needed for VAD insertion. Do NOT give if patient has a history of allergy to any local anesthetic or any mansoor product. Do NOT use both lidocaine intradermal/subcutaneous injection and the lidocaine cream on the same site., Pre-procedure lidocaine 1 % 0.1-1 mL 0.1-1 mL, Other, EVERY 1 HOUR PRN, mild pain with VAD insertion, Starting on Gisell 05/24/21 at 1255, MAX dose 1 mL subcutaneous OR intradermal along the side of the vein in divided doses as needed for VAD insertion. Do NOT give if patient has a history of allergy to any local anesthetic or any mansoor product. Do NOT use both lidocaine intradermal/subcutaneous injection and the lidocaine cream on the same site., Pre-procedure lidocaine 1 % 0.1-1 mL 1416 (Giv en - Provider: Kevin Roblero APRN [employer]) 0.1-1 mL, Other, EVERY 1 HOUR PRN, mild pain with VAD insertion, Starting on Gisell 05/24/21 at 1256, MAX dose 1 mL subcutaneous OR intradermal along the side of the vein in divided doses as needed for VAD insertion. Do NOT give if patient has a history of allergy to any local anesthetic or any mansoor product. Do NOT use both lidocaine intradermal/subcutaneous injection and the lidocaine cream on the same site., Pre-procedure meperidine (DEMEROL) injection 12.5 mg 12.5 mg, Intravenous, EVERY 15 MIN PRN, post anesthesia shivering, Starting on Gisell 05/24/21 at 1440, For 2 doses, PACU/Phase II naloxone (NARCAN) injection 0.2 mg 0.2 mg, Intravenous, EVERY 2 MIN PRN, op ioid reversal, Starting on Gisell 05/24/21 at 1450, Administer intravenous route when available and notify provider when administered. For unintended sedation or resp iratory depression if all of the below c riteria are met: ~ respiratory rate LESS than or EQUAL to 8. ~SaO2 less than 92% and or/end-tidal CO2 is greater than 50. ~ the patient is receiving an opioid, stallings s unintended sedations assessed as RASS (-3), and is currently not on mechanical ventilation. RASS scale moderate (-3) is movement or eye opening to voice but no eye contact. Patient Monitoring Once the patient has demonstrated a response to the naloxone, continue to monitor respiratory rate, depth, oxygen saturation and end-tidal CO2 (if available) every 15 minutes x 2, then every 30 minutes x 2, the n every 1 hour x 1 after each naloxone d ose. Consider transfer to ICU if patient respiratory parameters have not improved after 4 naloxone doses. naloxone (NARCAN) injection 0.2 mg 0.2 mg, Intramuscular, EVERY 2 MIN PRN, opioid reversal, Starting on Gisell 05/24/21 at 1450, Administer intramuscular if an intravenous route is not available and notify provider when administered. For uni ntended sedation or respiratory depressi on if all of the below criteria are met: ~ respiratory rate LESS than or EQUAL to 8. ~SaO2 less than 92% and or/end-tidal CO2 is greater than 50. ~ the patient is receiving an opioid, has unintended sed ations assessed as RASS (-3), and is currently not on mechanical ventilation. RASS scale moderate (-3) is movement or eye opening to voice but no eye contact. Pat ient Monitoring Once the patient has dem onstrated a response to the naloxone, continue to monitor respiratory rate, depth, oxygen saturation and end-tidal CO2 (if available) every 15 minutes x 2, then e very 30 minutes x 2, then every 1 hour x 1 after each naloxone dose. Consider transfer to ICU if patient respiratory parameters have not improved after 4 naloxone doses. naloxone (NARCAN) injection 0.4 mg 0.4 mg, Intravenous, EVERY 2 MIN PRN, op ioid reversal, Starting on Gisell 05/24/21 at 1450, Administer intravenous route when available and notify provider when administered. For unintended sedation or resp iratory depression if all of the below c riteria are met: ~ respiratory rate LESS than or EQUAL to 8. ~ SaO2 less than 92% and or/end-tidal CO2 is greater than 50. ~ the patient is receiving an opioid, h as unintended sedation assessed as RASS (-4) or (-5) and patient is currently not on mechanical ventilation. RASS scale (-4) is deep sedation with no response to voice but movement or eye opening to phy sical stimulation. RASS scale (-5) is un arousable. Patient Monitoring Once the patient has demonstrated a response to the naloxone, continue to monitor respiratory rate, depth, oxygen saturation and end -tidal CO2 (if available) every 15 minut es x 2, then every 30 minutes x 2, then every 1 hour x 1 after each naloxone dose. Consider transfer to ICU if patient respiratory parameters have not improved after 4 naloxone doses. naloxone (NARCAN) injection 0.4 mg 0.4 mg, Intramuscular, EVERY 2 MIN PRN, opioid reversal, Starting on Gisell 05/24/21 at 1450, Administer intramuscular if an intravenous route is not available and notify provider when administered. For uni ntended sedation or respiratory depressi on if all of the below criteria are met: ~ respiratory rate LESS than or EQUAL to 8. ~ SaO2 less than 92% and or/end- tidal CO2 is greater than 50. ~ the patient i s receiving an opioid, has unintended se dation assessed as RASS (-4) or (-5) and patient is currently not on mechanical ventilation. RASS scale (-4) is deep sedation with no response to voice but moveme nt or eye opening to physical stimulatio n. RASS scale (-5) is unarousable. Patient Monitoring Once the patient has demonstrated a response to the naloxone, continue to monitor respiratory rate, depth, o xygen saturation and end-tidal CO2 (if a vailable) every 15 minutes x 2, then every 30 minutes x 2, then every 1 hour x 1 after each naloxone dose. Consider transfer to ICU if patient respiratory parameters have not improved after 4 naloxone doses. ondansetron (ZOFRAN) injection 4 mg(Linked Group 1) 4 mg, Intravenous, EVERY 30 MIN PRN, alverto sea, Administer over 2-5 Minutes, Starting on Gisell 05/24/21 at 1440, For 2 doses, MAX total dose = 8 mg, including OR dosing. If not resolved in 15 minutes, then go to step 2 [prochlorperazine (COMPAZINE), if ordered]. Irritant., PACU/Phase II ondansetron (ZOFRAN) injection 4 mg(Linked Group 2) 4 mg, Intravenous, EVERY 6 HOURS PRN, na usea, vomiting, Administer over 2-5 Minutes, Starting on Gisell 05/24/21 at 1450, This is Step 1 of nausea and vomiting management. If nausea not resolved in 15 minut es, go to Step 2 prochlorperazine (COMPAZINE). Irritant. ondansetron (ZOFRAN-ODT) ODT tab 4 mg(Linked Group 1) 4 mg, Oral, EVERY 30 MIN PRN, nausea, St arting on Gisell 05/24/21 at 1440, For 2 doses, MAX total dose = 8 mg, including OR dosing. If not resolved in 15 minutes, then go to step 2 [prochlorperazine (COMPAZ INE), if ordered]. With dry hands, peel back foil backing and gently remove tablet. Do not push oral disintegrating tablet through foil backing. Administer immediately on tongue and oral disintegrating tablet dissolves in seconds, then swallo w with saliva. Liquid not required., PACU/Phase II ondansetron (ZOFRAN-ODT) ODT tab 4 mg(Linked Group 2) 4 mg, Oral, EVERY 6 HOURS PRN, nausea, v omiting, Starting on Gisell 05/24/21 at 1450, This is Step 1 of nausea and vomiting management. If nausea not resolved in 15 minutes, go to Step 2 prochlorperazine (C OMPAZINE). Do not push through foil back ing. Peel back foil and gently remove. Place on tongue immediately. Administration with liquid unnecessary With dry hands, peel back foil backing and gently remov e tablet. Do not push oral disintegratin g tablet through foil backing. Administer immediately on tongue and oral disintegrating tablet dissolves in seconds, then swallow with saliva. Liquid not required. prochlorperazine (COMPAZINE) injection 5 mg 5 mg, Intravenous, EVERY 6 HOURS PRN, na usea, vomiting, Administer over 1-2 Minutes, Starting on Gisell 05/24/21 at 1440, PACU/Phase II sodium chloride (PF) 0.9% PF flush 3 mL 3 mL, Intracatheter, EVERY 1 MIN PRN, li ne flush, other, to ensure patency or to lock dormant line, Starting on Gisell 05/24/21 at 1255, Pre-procedure sodium chloride (PF) 0.9% PF flush 3 mL 3 mL, Intracatheter, EVERY 1 MIN PRN, li ne flush, other, to ensure patency or to lock dormant line, Starting on Gisell 05/24/21 at 1255, Pre-procedure sodium chloride (PF) 0.9% PF flush 3 mL 3 mL, Intracatheter, EVERY 1 MIN PRN, li ne flush, other, to ensure patency or to lock dormant line, Starting on Gisell 05/24/21 at 1256, Pre-procedure Linked Groups Order Group 1: ondansetron (ZOFRAN-ODT) ODT tab 4 mgJump to med 4 mg, Oral, EVERY 30 MIN PRN, nausea, St arting on Gisell 05/24/21 at 1440, For 2 doses
MAX total dose = 8 mg, including OR dosing. If not resolved in 15 minutes, then go to step 2 [prochlorperazine (COMPAZINE), if ordered]. With dry hands, peel back foil backing and gently remove tablet. Do not push oral disintegrating tablet through foil backing. Administer immediately on tongue and ora l disintegrating tablet dissolves in sec onds, then swallow with saliva. Liquid not required.
PACU/Phase II Or ondansetron (ZOFRAN) injection 4 mgJump to med 4 mg, Intravenous, EVERY 30 MIN PRN, alverto sea, Administer over 2-5 Minutes, Starting on Gisell 05/24/21 at 1440, For 2 doses
MAX total dose = 8 mg, including OR dosing. If not resolved in 15 minutes, then go to step 2 [prochlorperazine (CO MPAZINE), if ordered]. Irritant.
PACU/Phase II Group 2: ondansetron (ZOFRAN-ODT) ODT tab 4 mgJump to med 4 mg, Oral, EVERY 6 HOURS PRN, nausea, v omiting, Starting on Gisell 05/24/21 at 1450
This is Step 1 of nausea and vomiting management. If nausea not resolved in 15 minutes, go to Step 2 prochlorperazine (COMPAZINE). Do not push through foil backing. Peel back foil and gently remove. Place on tongue immediately. Administration with liquid unnecessary With dry hands, pee l back foil backing and gently remove ta blet. Do not push oral disintegrating tablet through foil backing. Administer immediately on tongue and oral disintegrating tablet dissolves in seconds, then swallow with saliva. Liquid not required.
Or ondansetron (ZOFRAN) injection 4 mgJump to med 4 mg, Intravenous, EVERY 6 HOURS PRN, na usea, vomiting, Administer over 2-5 Minutes, Starting on Gisell 05/24/21 at 1450
This is Step 1 of nausea and vomiting management. If naus ea not resolved in 15 minutes, go to Zachary p 2 prochlorperazine (COMPAZINE). Irritant.
documented in this encounter Care Teams Emergency Medical Technician/Driver Relationship Specialty Start Date End Date System, Provider Not In PCP - General Clinic 05/21/21 documented as of this encounter
--- OUTSIDE RECORDS SUMMARY | 2021-12-02 09:37 | XMS_ITS | Encounter Summary ---
:1945 Author Organization [facility] Address [address] [place] [address]. [place] [address] Care Team Providers Name Role Phone System, Provider Not In Primary Care Provider Unavailable Encounter Details Date Type Department Care Team Description 05/01/[address] [facility] Scan, PROCEDURE ORDER Health Info Mgmt Non-Provider [facility] [address] [address] Social History Tobacco Use Types Packs/Day Years Used Date Smoking Tobacco: Never Assessed Sex Assigned at Date Recorded Not on file COVID-19 Exposure Response Date Recorded In the last 10 days, have you been in contact with No / Unsu re 05/24/2021 12:33 PM CDT someone who was confirmed or suspected to have Coronavirus/COVID-19? documented as of this encounter Plan of Treatment Not on filedocumented as of this encounter Visit Diagnoses Not on filedocumented in this encounter Care Teams Dressmaker Helper Relationship Specialty Start Date End Date System, Provider Not In PCP - General Clinic 05/21/21 documented as of this encounter
--- OUTSIDE RECORDS SUMMARY | 2021-12-02 09:37 | XMS_ITS | Clinical Summary ---
:1945 Author Organization [facility] Address [address] [place] [id number] Care Team Providers Name Role Phone System, Provider Not In Primary Care Provider Unavailable Allergies Active Allergy Reactions Severity Noted Date Comments Codeine Dizziness 03/10/2008 Oxycodone Nausea 10/13/2018 Penicillins 03/24/2006 Other reaction( s): Edema Sulfa Drugs Rash Low 03/24/2006 Tramadol Other (See Comments) 03/10/2008 Swesymone g in her mouth Medications Medication Sig Dispensed Refills Start Date End Date Status atorvastatin (LIPITOR) Take 40 mg by 0 03/26/2021 Active 40 MG tablet mouth in the morning. At bedtime buPROPion (WELLBUTRIN Take 150 mg by 0 09/12/2020 Active SR) 150 MG 12 hr tablet mouth cholecalciferol 50 MCG Take 2,000 Units 0 10/23/2020 Active (2000 UT) tablet by mouth in the morning. cyclobenzaprine Take 10 mg by 0 10/10/2020 Active (FLEXERIL) 10 MG tablet mouth in the morning. At bedtime blood glucose (CONTOUR daily 0 05/05/2021 Active NEXT TEST) test strip metFORMIN Take 500 mg by 0 04/10/2021 Acti ve (GLUCOPHAGE-XR) 500 MG mouth At Bedtime 24 hr tablet naproxen (NAPROSYN) 500 Take 500 mg by 0 12/27/2020 Active MG tablet mouth as needed (every 12 hours) sertraline (ZOLOFT) 50 Take 50 mg by 0 03/05/2021 Active MG tablet mouth in the morning. cycloSPORINE (RESTASIS) Place 1 drop 0 Active 0.05 % ophthalmic into both eyes emulsion in the morning and 1 drop in the evening. VITAMIN D PO Take 4,000 Units 0 Active by mouth daily BIOTIN PO Take by mouth 0 Active daily cetirizine (ZYRTEC) 10 Take 10 mg by 0 Active MG tablet mouth in the morning. nitroGLYcerin Place 0.4 mg 0 Act julieta (NITROSTAT) 0.4 MG under the tongue sublingual tablet every 5 minutes as needed for chest pain States she has medication, never taken Ascorbic Acid (VITAMIN C Take 500 mg by 0 Active PO) mouth daily Multiple Vitamin Take 1 tablet by 0 Active (MULTIVITAMIN ADULT PO) mouth daily Social History Tobacco Use Types Packs/Day Years Used Date Smoking Tobacco: Former Cigarettes 1 40 Quit : 05/15/2019 Smokeless Tobacco: Never Tobacco Cessation: Counseling Given: No Alcohol Use Standard Drinks/Week Comments Yes 0 (1 standard drink = 0.6 oz pure alcoho l) rare Sex Assigned at Date Recorded Not on file Last Filed Vital Signs Vital Sign Reading [...] Mass Index 23.03 05/24/2021 12:50 PM CDT Plan of Treatment Health Maintenance Due Date Last Done Comments ADVANCE CARE PLANNING 1945 ANNUAL REVIEW OF HM ORDERS 1946 CT COLONOGRAPHY 1945 DEXA 1945 FIT-DNA (Cologuard) 1945 FIT 1945 FLEX SIG 1945 HEPATITIS B IMMUNIZATION (1 1946 of 3 - 3-dose series) MAMMO SCREENING 1945 COLONOSCOPY 1956 COLORECTAL CANCER SCREENING 1956 HEPATITIS C SCREENING 1964 LIPID 08/22/1991 LUNG CANCER SCREENING 1996 ZOSTER IMMUNIZATION (2 of 06/21/2010 04/26/2010 3) FALL RISK ASSESSMENT 08/22/2011 PHQ-2 (once per calendar 02/10/2021 year) COVID-19 Vaccine (4 - 03/15/2021 01/18/2021, 04/22/2020, Booster for Pfizer series) 04/01/2020 INFLUENZA VACCINE (#1) 2021 01/12/2021, 11/16/2019, 11/03/2018, Additional history exists MEDICARE ANNUAL WELLNESS 03/26/2022 03/26/2021 VISIT DTAP/TDAP/TD IMMUNIZATION 10/11/2028 10/11/2018, 03/10/2008 (3 - Td or Tdap) Pneumococcal Vaccine: 65+ Completed 01/01/2016, 11/05/2013 Years IPV IMMUNIZATION Aged Out No longer eligi ble based on patient 's age to complete this topic MENINGITIS IMMUNIZATION Aged Out No longe r eligible based on patient 's age to complete this topic Insurance Payer Benefit Plan / Subscriber ID Effective Phone Address T ype Group Dates MEDICARE MEDICARE FOR HB [id number] 2011-Prese [phone] ATTN CLAIMS Medicare SUPPLEMENT nt [address] [place] [address] MEDICA MEDICA PRIME [id number] 2021-Prese [phone] [address] [address] Ind[address]ity [address] [place] [address] Care Teams Adoption Services Manager Relationship Specialty Start Date End Date System, Provider Not In PCP - General Clinic 05/21/21
--- OUTSIDE RECORDS SUMMARY | 2021-12-02 09:37 | XMS_ITS | Encounter Summary ---
:1945 Author Organization [facility] Address [address] [place] [id number] Care Team Providers Name Role Phone System, Provider Not In Primary Care Provider Unavailable Encounter Details Date Type Department Care Team Description 05/21/2021 Travel Social History Tobacco Use Types Packs/Day Years Used Date Smoking Tobacco: Former Cigarettes 1 40 Quit : 05/15/2019 Smokeless Tobacco: Never Alcohol Use Standard Drinks/Week Comments Yes 0 (1 standard drink = 0.6 oz pure alcoho l) rare Sex Assigned at Date Recorded Not on file COVID-19 Exposure Response Date Recorded In the last 10 days, have you been in contact with No / Unsu re 05/21/2021 10:01 AM CDT someone who was confirmed or suspected to have Coronavirus/COVID-19? documented as of this encounter Plan of Treatment Not on filedocumented as of this encounter Visit Diagnoses Not on filedocumented in this encounter Care Teams Belt Picker Relationship Specialty Start Date End Date System, Provider Not In PCP - General Clinic 05/21/21 documented as of this encounter
--- OUTSIDE RECORDS SUMMARY | 2021-12-02 09:37 | XMS_ITS | Clinical Summary ---
:1945 Author Organization [employer] [facility] [place] [address] Care Team Providers Name Role Phone Forrest Wilson MD Primary Care Provider [phone] Negrita London RN Unavailable Allergies Active Allergy Reactions Severity Noted Date Comments Codeine Dizziness 03/10/2008 Oxycodone Nausea Only 10/13/2018 Penicillins Edema 03/24/2006 Potassium Clavulanate Nausea And Vomiting 04/30/2021 Sulfa (Sulfonamide Erythema, Rash Low 03/24/2006 Antibiotics) Tramadol Other - Describe In 03/10/2008 Swelling in her Comment Field mouth Medications Medication Sig Dispensed Refills Start End Date Status Date multivitamin (MVI) Take 1 tablet 3 Active tablet by mouth once [address] 1 Drop 3 Bottle 3 Acti ve (RESTASIS) 0.05 % into the 5 ophthalmic emulsion eye(s) every 12 hours. ascorbic acid, Take 1 tablet 0 A ctive vitamin C, (VITAMIN by mouth once 7 C) 500 mg tablet daily. nitroglycerin Place 1 30 tablet 1 Active (NITROSTAT) 0.4 mg tablet under 8 sublingual the tongue tabletIndications: every 5 Chest pain in adult minutes if needed for Chest Pain. calcium Take 1 Tab by 0 Active carb/D3/magnesium/z mouth. inc (CALCIUM-MAGNESIUM- ZINC-VIT D ORAL) cetirizine (ZYRTEC) Take 1 tablet 0 Active 10 mg tablet by mouth once 9 daily. durable medical Plantar 1 Each 0 Acti ve equipment fasciitis 1 (DME)Indications: night splint, Plantar fasciitis medium, Ref: of left foot [phone] cholecalciferol, Take 1 Tablet 0 Active Vitamin D3, (2,000 units) 1 (Vitamin D-3) 2,000 by mouth once unit tablet daily. naproxen (NAPROSYN) Take 1 Tablet 180 tablet. 2 Active 500 mg (500 mg) by 1 tabletIndications: mouth every Pain 12 hours if needed for Pain. atorvastatin Take 1 Tablet 90 Tablet 1 Act julieta (LIPITOR) 40 mg (40 mg) by 2 tabletIndications: mouth at Hyperlipidemia, bedtime. unspecified hyperlipidemia type latanoprost 0 Active (XALATAN) 0.005 % 2 ophthalmic solution metFORMIN Take 1 Tablet 90 Tablet 1 Active (GLUCOPHAGE XR) 500 (500 mg) by 2 mg Extended-Release mouth once tabletIndications: daily. Controlled type 2 diabetes mellitus with complication, without long-term current use of insulin (HC) cyclobenzaprine Take 1 Tablet 90 Tablet 3 Active (FLEXERIL) 10 mg (10 mg) by 2 tabletIndications: mouth at Fibromyalgia bedtime. buPROPion Take 1 Tablet 90 Tablet 3 Active (WELLBUTRIN SR) 150 (150 mg) by 2 mg mouth every Sustained-Release morning. tabletIndications: Anxiety and depression sertraline (ZOLOFT) Take 1 Tablet 90 Tablet 3 Active 50 mg (50 mg) by 2 tabletIndications: mouth every Anxiety morning. lancetsIndications: As directed. 100 Each 3 Active Controlled type 2 Test one time 2 diabetes mellitus daily. Dx with complication, E11.9 without long-term current use of insulin (HC) blood sugar Test one time 100 Each 3 Acti ve diagnostic (Blood daily. Dx 2 Glucose Test) E11.9 stripIndications: Controlled type 2 diabetes mellitus with complication, without long-term current use of insulin (HC) montelukast Take 1 Tablet 90 Tablet 3 11/28/19 Disc ontinued (SINGULAIR) 10 mg (10 mg) by 2 22 ( *Patient states tabletIndications: mouth at n o longer Allergy, sequela bedtime. oumou ing/Not on sending fa cility list) Active Problems Problem Noted Date Anxiety and depression 09/12/2020 Chronic obstructive pulmonary disease 03/14/2020 Controlled type 2 diabetes mellitus with complication, without long-term 08/12/2019 current use of insulin Diverticulosis of large intestine 06/30/2018 Atypical chest pain, nl angio after abnl stress test 0 07/23/2017 Essential hypertension 05/30/2017 Pulmonary nodule 12/24/2016 Sensorineural hearing loss, bilateral 12/12/2015 Osteoporosis 06/17/2013 Overview: DEXA 06/2013. Colon polyps 02/25/2013 Fibromyalgia 03/24/2006 Overview: fibromyalgia Hyperlipidemia 03/24/2006 Resolved Problems Problem Noted Date Resolved Date Greater trochanteric bursitis of right hip 03/30/2019 03/26/2021 History of colon polyps 06/30/2018 09/28/2019 Abnormal stress test 07/23/2017 07/28/2017 Overview: -Stress Myoview 06/18/2017 Mild ischemia in the apical anterior wa ll and apex Thyroid mass 06/27/2017 03/26/2021 Type II diabetes mellitus 04/28/2017 09/28/2019 Tobacco abuse 06/26/2016 03/14/2020 Caregiver stress 06/04/2011 09/26/2017 Overview: with dementia Adjustment disorder 06/04/2011 09/26/2017 Overview: with dementia. Post herpetic neuralgia 05/26/2009 03/26/2021 Encounter for long-term (current) use of other medications 0 04/02/2007 09/26/2017 Mild mood disorder 03/14/2020 Overview: been on Paxil, [place]'s Wort, Wellbutr in [place] Personal history of colonic polyps 09/26 Overview: Colonoscopy 06/2018 severe diverticuli, r epeat in 5 years, PEG 4L Mild mood disorder 09/12/2020 Overview: been on Paxil, Isidoro's Wort, Wellbutr in [place] Encounters Date Type Specialty Care Team Description 11/27/2021 Office Visit [facility] F/ U MD [place] ([facility] ent Care, 2, earache and hea dache); Immunization/In jection 11/27/2021 Travel 11/24/2021 Travel 10/31/2021 Nurse/Clinic Staff Immunizat ion/Injection Only (COVID-19 vacci ne) 10/31/2021 Travel 10/12/2021 Refill Forrest Wilson Refill Requ est (Contour MD [place] Next Strips 100 's, Lancets Mircole t Colors 100s) 09/26/2021 Refill Forrest Wilson Refill Requ est MD [place] (Lancets, test strips) 09/25/2021 Ancillary Procedure 09/25/2021 Office Visit Forrest Wilson Diabetes (F ollow up) MD [place] 09/25/2021 Travel 09/22/2021 Travel 09/21/2021 Orders Only Lab, [facility] 09/21/2021 Orders Only Forrest Wilson <No scans a ttached> MD [place] 09/21/2021 Telephone Forrest Wilson Lab MD [place] 09/21/2021 Travel 09/18/2021 Office Visit Abby Rice Ear Problem (L eft ear. JUAN FRANCISCO Stringer Started as a c onstant pain then goode ed to sharp pain for a few days); Headache (Forehead and l eft side) 09/17/2021 Travel from Last 3 Months Immunizations Name Administration Dates Next Due AMB INFLUENZA IIV3 (AGE 65+ YRS) PF (Flu Clinic Only) 2017 Amb Influenza, Inactivated AIIV4 (Age 65+ Years) 11/16/2019 Preserv Free COVID-19 vaccine (tritrue 30mcg/0.3mL) 12YO+ 022 BIVALENT BOOSTER PF, MDV COVID-19 vaccine (Pfizer-BioNTech 30mcg/0.3mL) PF, 1, 04/01/2020 MDV Influenza, High-dose Inactivated 01/01/2016 Influenza, IIV3 (Age >=3 years) 12/31/2007 Influenza, Inactivated AIIV4 (Age 65+ Years) Preserv 022, 01/12/2021 Free Influenza, Inactivated IIV3 (Age 65+ Years) Preserv 11/04/19 19, 12/17/2016 Free Pneumococcal Poly,23-Valent (Pneumovax) 11/05/2013 Pneumococcal conj 13-Valent (Prevnar 13) 01/01/2016 Tdap 10/11/2018, 03/10/2008 Zoster (Zostavax-ZVL, live) 04/26/2010 Family History Medical History Relation Name Comments Alcohol/Drug Brother 3 Diabetes Father Hypertension Father Stroke Father Allergies Mother Asthma Mother Cancer Mother lung Hypertension Mother Arthritis Paternal Grandmother Anesthesia Problem No Family History Cancer-breast No Family History Relation Name Status Comments Brother 1 Alive x2 Brother 2 x1 Brother 3 Daughter Alive x2 Father (Age 69) Maternal Grandfather Maternal Grandmother Mother (Age 86) 2009, ?pneumon ia Paternal Grandfather Paternal Grandmother Sister 1 Alive x2 Sister 2 x2 Social History Tobacco Use Types Packs/Day Years Used Date Former Smoker Cigarettes 0.2 40.25 02/10/1977 - 0 10/11/2018 Smokeless Tobacco: Never Used Tobacco Cessation: Counseling Given: Yes Comments: quit cigarrettes 09/10/18 Alcohol Use Standard Drinks/Week Comments Yes 0 (1 standard drink = 0.6 oz pure alcoho l) occ Alcohol Habits Answer Date Recorded How often do you have a drink containing alcohol? Monthly or less 09/25/2018 How many drinks containing alcohol do you have on a 1 or 2 09/25/2018 typical day when you are drinking? How often do you have six or more drinks on one Never 09/25/2018 occasion? Comment: Not asked Sex Assigned at Date Recorded Not on file COVID-19 Exposure Response Date Recorded In the last 10 days, have you been in contact with No / Unsu re 11/27/2021 3:37 PM CDT someone who was confirmed or suspected to have Coronavirus/COVID-19? 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 Oxygen Saturation 99% 11/27/2021 3:49 PM CDT Inhaled Oxygen Concentration - - Weight 65.5 kg (144 lb 6.4 oz) 11/27/2021 3:49 PM CDT Height 163.6 cm (5' 4.41) 05/21/2021 1:15 PM CDT Body Mass Index 24.47 05/21/2021 1:15 PM CDT Plan of Treatment Upcoming Encounters Date Type Specialty Care Team Description 03/28/2022 Orders Only Lab, [place] 04/01/2022 Office Visit Forrest Wilson MD [address] [place] 5 [id number] (Wo rk) Health Maintenance Due Date Last Done Comments Zoster (shingles) series for age 0506/21/2010 04/26/2010 50+ (2 of 3) Mammogram for age 45-75 11/17/2021 11/17/2020, 10/15/2019, 10/01/2018, Additional history exists Medicare Wellness for age 65+ 03/26/2022 03/26/2021, 2018, 01/01/2016 Depression screening for age 12+ 04/02/2022 04/02/2021, , 03/14/2020, Additional history exists BMI (ht and wt on same day) for 05/21/2022 05/21/2021, 03/13, age 18+ 09/12/2020, Additional history exists Colonoscopy through age 75 07/01/2023 06/30/2018, 9, 06/28/2013, Additional history exists Lipids for age 45-75 09/18/2026 09/18/2021, 09/12/2020, 09/27/2019, Additional history exists Tetanus booster 10/11/2028 10/11/2018, 03/10/2008 DEXA/DXA scan for age 65+ Completed 06/11/2013, 02/25/2006 Hepatitis C screening for age Completed 01/01/2016 18-79 Pneumococcal series for age 65+ Completed 01/01/2016, 10/12 Tdap Completed 10/11/2018, 03/10/2008 COVID-19 vaccine series Completed 10/31/2021, 01/18/2021, 04/22/2020, Additional history exists Influenza for age 65+ Completed 11/27/2021, 01/12/2021, 11/16/2019, Additional history exists Procedures Procedure Name Priority Date/Time Associated Comments Diagnosis CT CHEST WO Routine 09/25/2021 1:15 PM Pulmonary nodule Resul ts for this CDT procedure are i n the results section. HEMOGLOBIN A1C Add On 09/21/2021 7:48 AM Controlled type 2 Re sults for this CDT diabetes mellitus procedure are in with complication, the resul ts without long-term section. current use of insulin (HC) EXTRA TUBE LAVENDER Routine 09/21/2021 7:48 AM Routine general CDT medical examination at a [facility] LIPID PANEL W REFLEX Add On 09/18/2021 9:32 AM Controlled typ e 2 Results for this MEASURED LDL CDT diabetes mellitus procedure are in with complication, the resul ts without long-term section. current use of insulin (HC) C-REACTIVE PROTEIN STAT 09/18/2021 9:32 AM Left ear pain Re sults for this CDT procedure are i n the results section. SEDIMENTATION RATE STAT 09/18/2021 9:32 AM Left ear pain Re sults for this CDT procedure are i n the results section. from Last [address] CHEST WO (09/25/2021 1:15 PM CDT) Anatomical Region Laterality Modality CHEST, THORAX, HEART Computed Tomography Specimen (Source) Anatomical Collection Method Collection Time Re ceived Time Location / / Volume Laterality 09/25/2021 3:08 PM CDT Narrative 09/25/2021 3:08 PM CDT For Patients: ??As a result of the Cures Act, medical imaging exams and procedure report s are released immediately into your [facility] medical record. ??You may view this report before your referring provider. ??If you have questions, please contact your health care provider. Indication: Lung nodule Technique: Noncontrast CT chest Please note that all CT scans at this [facility] use dose modulation, iterative reconstruction, and/or weight-based dosing when appropriate to reduce radiation dose to as low as reasonably achievable. Comparison: 10/10/2020, 10/05/2019, 04/07/2020 Findings: Stable subtle ground-glass densities wit hin the left upper lobe. There is no pneumothorax. Stable sub solid nodule right upper lobe measuring 1.0 cm. No pleural effusion or infiltrate. Scarring within t he right middle lobe medially. Colloid c ysts within the thyroid again noted measuring up to 2.4 cm. Dense vascular calcifications. No intrathoracic adenopathy. Adrenal glands normal. Calcification in th e spleen. Simple hepatic cysts within th e anterior liver measuring up to 2.4 cm. No fracture. Impression: No significant interval change in the 1 centimeter sub solid nodule in the right upper lobe. Please note that all CT scans at this [facility] use dose modulation, iterative reconstruction, and/or weight-based dosing when appropriate to reduce radiation dose to as low as reasonably achievable. Dictated by Enrique Rosario MD @ Sep 25 2 022 ??3:08PM (Electronically Signed) ?? Procedure Note Enrique Rosario MD - 09/25/2021For matting of this note might be different from the original. For Patients: As a result of the ntury Cures Act, medical imaging exams and procedure reports are released immediately into your electronic medical record. You may view this report before your referring provider. If you have questions, please contact [facility] health care provider. Indication: Lung nodule Technique: Noncontrast CT chest Please note that all CT scans at this [facility] use dose modulation, iterative reconstruction, and/or weight-based dosing when appropriate to reduce radiation dose to as low as reasonably achievable. Comparison: 10/10/2020, 10/05/2019, 04/07/2020 Findings: Stable subtle ground-glass densities wit hin the left upper lobe. There is no pneumothorax. Stable sub solid nodule right upper lobe measuring 1.0 cm. No pleural effusion or infiltrate. Scarring within the right middle lobe medially. Colloid cysts within the thyroid again noted measuring up to 2.4 cm. Dense vascular calcifications. No intrathoracic adenopathy. Adrenal glands normal. Calcification in the spleen. Simple hepatic cysts within the anterior liver measuring up t o 2.4 cm. No fracture. Impression: No significant interval change in the 1 centimeter sub solid nodule in the right upper lobe. Please note that all CT scans at this [facility] use dose modulation, iterative reconstruction, and/or weight-based dosing when appropriate to reduce radiation dose to as low as reasonably achievable. Dictated by Enrique Rosario MD @ Sep 25 2 022 3:08PM (Electronically Signed) Forrest Wilson MD CT EXTRA TUBE LAVENDER (09/21/2021 7:48 AM CDT) Specimen Anatomical Collection Method / Collection Time Recei ruth Time (Source) Location / Volume Laterality Blood BLOOD SPECIMEN / Venipuncture / 09/21/2021 7:48 2021 7:56 Unknown Unknown AM CDT AM CDT Forrest Wilson MD LABORATORY Performing Organization Address City/State/ZIP Code Phon e Number [facility] [address] [place] [address] (ABNORMAL) HEMOGLOBIN A1C MONITORING (POCT) (09/21/2021 7:48 AM CDT) Analysis Performed At Patho logist Time Signature HEMOGLOBIN A1C 6.9 (H) <=6.4 % 09/21/2021 [facility] MONITORING 10:01 AM CDT [place] (POCT) [facility] Specimen Anatomical Collection Method / Collection Time Recei ruth Time (Source) Location / Volume Laterality Blood BLOOD SPECIMEN / Venipuncture / 09/21/2021 7:48 2021 7:56 Unknown Unknown AM CDT AM CDT Narrative [facility] - 2021 10:01 AM CDT ? (<=6.9%) ? Indicates good control ? (7.0% to 7.9%) ? Indicates fa ir control ? (>=8.0%) ? Indicates poor control ?? NOTE: ??These thresholds are guideli russ and ?individual targets may va ry. Falsely low levels may be seen with: Recent Transfusion, Recent Significant B lood Loss, Hemolytic Diseases, or Falsely elevated levels may be seen with : Untreated Anemias, Splenectomy ? Yara CHICAS CHEMISTRY Performing Organization Address City/State/ZIP Code Phon e Number [facility] [address] [place] [address] SEDIMENTATION RATE (09/18/2021 9:32 AM CDT) [facility] Method Time Signature SEDIMENTATION RATE 8 <30 mm/hr 09/18/2021 [facility] 2:43 PM CDT [facility] Specimen Anatomical Collection Method / Collection Time Recei ruth Time (Source) Location / Volume Laterality Blood BLOOD SPECIMEN / Venipuncture / 09/18/2021 9:32 2021 9:34 Unknown Unknown AM CDT AM CDT Abby CHICAS HEMATOLOGY Performing Organization Address City/State/ZIP Code Phon e Number [facility] [address] [place] [address] LABORATORY-[facility] [address] LABORATORY LIPID PANEL W REFLEX MEASURED LDL (09/18/2021 9:32 AM CDT) [facility] Method Time Signature CHOLESTEROL,TOTAL 139 100 - 199 09/21/2021 [facility] mg/dL 12:20 PM CDT [facility] TRIGLYCERIDES 81 <150 09/21/2021 [facility] mg/dL 12:20 PM CDT [facility] HDL CHOLESTEROL 55 >40 mg/dL 09/21/2021 [facility] 12:20 PM CDT [facility] NON-HDL 84 <145 09/21/2021 [facility] CHOLESTEROL mg/dl 12:20 PM CDT [facility] CHOL/HDL RATIO 2.53 <4.50 09/21/2021 [facility] 12:20 PM CDT [facility] LDL CHOLESTEROL 68 <=130 09/21/2021 [facility] mg/dL 12:20 PM CDT [facility] VLDL CHOLESTEROL 16 <=30 09/21/2021 [facility] mg/dL 12:20 PM CDT [facility] PROVIDER ORDERED RANDOM 09/21/2021 [facility] STATUS 12:20 PM CDT [facility] Specimen Anatomical Collection Method / Collection Time Recei ruth Time (Source) Location / Volume Laterality Blood BLOOD SPECIMEN / Venipuncture / 09/18/2021 9:32 2021 9:34 Unknown Unknown AM CDT AM CDT Forrest Wilson MD CHEMISTRY Performing Organization Address City/State/ZIP Code Phon e Number [facility] [address] [place] [address] LABORATORY-[facility] [address] LABORATORY C-REACTIVE PROTEIN (09/18/2021 9:32 AM CDT) P athologist Signature C-REACTIVE 0.12 <0.50 09/18/2021 [facility] PROTEIN mg/dL 2:49 PM CDT LAB[facility]ATORY[facility] Specimen Anatomical Collection Method / Collection Time Recei ruth Time (Source) Location / Volume Laterality Blood BLOOD SPECIMEN / Venipuncture / 09/18/2021 9:32 2021 9:34 Unknown Unknown AM CDT AM CDT Abby CHICAS CHEMISTRY Performing Organization Address City/State/ZIP [facility] Phon e Number [facility] [address] [place] [address] LABORATORY-[facility]TR[facility] [address] LABORATORY from Last 3 Months Insurance Payer Benefit Plan / Subscriber ID Effective Dates Phone Addre ss Type Group MEDICARE PART B MEDICARE PART B [id number] 2011-Presen ATTN: CLAIMS - HB USE ONLY HB ONLY t [address] [place] [address] MEDICARE PART B MEDICARE PART B [id number] 2011-Presen ATTN: CLAIMS - HB USE ONLY HB ONLY t [address] [place] [address] MEDICARE PART A MEDICARE PART A [id number] 2011-Presen ATTN: CLAIMS - HB USE ONLY HB ONLY t [address] [facility] [place] [address] MEDICA MR MEDICA PRIME [id number] 2017-Presen [address] [address] SOLUTIONS MR [place] [address] BLUE CROSS MR MR BC [place] [id number] 2014-Presen [address] [place] [address] MEDICA MEDICA PRIME [id number] 2017-Presen [address] [address] [place] [address] Advance Directives Documents on File Type Date Recorded Patient Invas Tech Explanati on Healthcare Directive 06/03/2016 1:07 PM [employer] and [employer] [place], 10/10/2015 Latest Code Status on File Code Status Date Activated Date Inactivated Comments Full Code 08/29/2017 9:30 AM 08/29/2017 3:22 PM Full Code 08/29/2017 9:30 AM 08/29/2017 9:30 AM Full Code 07/24/2017 7:02 AM 07/24/2017 4:31 PM Care Teams Architecture Intern Relationship Specialty Start Date End Date Forrest Wilson MD PCP - General Family Practice 05/17/16 [address] [place] [address] Negrita London, hotbed lever operator 11/09/19 [address] [place] [address]
--- OUTSIDE RECORDS SUMMARY | 2021-12-02 09:37 | XMS_ITS | Encounter Summary ---
:1945 Author Organization [place] Address [address] [place] [address] Care Team Providers Name Role Phone System, Provider Not In Primary Care Provider Unavailable Reason for Visit Auth/Cert Specialty Diagnoses / Procedures Referred By Contact Refer red To Contact Surgery Diagnoses Common bile duct dilation Common bile duct dilation [K83.8] Rh Periop Services Procedures HC ERCP W/W/O EVARISTO OF SPEC-BRUSH/WASH ENDOSCOPIC RETROGRADE CHOLANGIOPANCREATOGRAPHY ENDOSCOPIC ULTRASOUND, ESOPHAGOSCOPY / UPPER GASTROINTESTINAL TRACT (GI) [address] [place] [address] Phone: Fax: Referral ID Status Reason Start Date Expiration Date Visits Requ ested Visits Authorized [id number] 1 1 Encounter Details Date Type Department Care Team Description 05/24/2021 Anesthesia Event [facility] Marcelo Cardenas MD [facility] [id number] [place], [place] [id number] [facility] Shi Riley APRN RUBBER EXTRUSION MACHINE OPERATOR [address] [facility] [address] [place], [place] [id number] [address] [place] [address] Anesthesia Record Procedure Summary Procedure Name Responsible Anesthesia Start Anesthesia Stop Anesthesiologist Time Time ENDOSCOPIC RETROGRADE Marcelo Cardenas MD 05/24/21 1413 2 1435 CHOLANGIOPANCREATOGRAPHY (Mouth) Events Date Time Event Comment 05/24/2021 1310 1406 RUBBER EXTRUSION MACHINE OPERATOR Ready for Procedure 1413 AN REASSESS I attest that I have identified and re-evaluated the patient immediately before the induction of anesthesia and I am satisfied that t he anesthetic plan is suitable for the patient's condition and procedure. The f irst vital signs recorded are pre- inducti on. Kevin Roblero APRN RUBBER EXTRUSION MACHINE OPERATOR 1413 An Start 1414 An Start Data 1422 MD Present 1435 an stop data 1435 An Stop Electronically s igned by Kevin Roblero APRN CRNA on May 2:35 PM 1435 MD Present Name Total fentaNYL 50 mcg/mL 100 mcg propofol 10 mg/mL 50 mg lidocaine 1 % 0.1-1 mL 30 mg LR 200 mL Agents Name NO HELIOX O2 N2O Air Exp Sevoflurane Exp Isoflurane Exp Desflurane Exp N2O Ins Sevoflurane Ins Isoflurane Ins Desflurane O2 Auxiliary Blood No blood administrations on file. Lines, Drains, and Airways Type Details Placement Removal Incision/Surgical Site 05/24/21; 1438; Mouth 05/24/21 1438 by Fabienne Morales RN Peripheral IV 05/24/21; 1330; 22 G; 05/24/21 1330 by 05/24/21 1529 by BD; Right, Posterior; Meagan Deng, RN Yahaira Eubanks RN Hand; Chlorhexidine; None; Tolerated well documented in this encounter Social History Tobacco Use Types Packs/Day Years [...] have Coronavirus/COVID-19? documented as of this encounter OR Notes Anesthesia Postprocedure Evaluation - Marcelo Cardenas MD - 05/24/2021 4:15 PM CDT Patient: Mildred Cox Procedure: Procedure(s): ENDOSCOPIC RETROGRADE CHOLANGIOPANCREATOGRAPHY Anesthesia Type: General Note: Postop Pain Control: Uneventful Sign Out: Well controlled pain PONV: No Neuro/Psych: Uneventful Sign Out: Acceptable/Baseline neuro status Airway/Respiratory: Uneventful Sign Out: Acceptable/Baseline resp. status CV/Hemodynamics: Uneventful Sign Out: Acceptable CV status; No obvious hypovolemia; No obvious fluid overload Other NRE: NONE DID A NON-ROUTINE EVENT OCCUR? No Last vitals: Vitals Value Taken Time BP 149/76 05/24/21 1521 Temp 97.6 ??F (36.4 ??C) 05/24/21 1521 Pulse 89 05/24/21 1521 Resp 16 05/24/21 1521 SpO2 98 % 05/24/21 1521 Electronically Signed By: Marcelo Cardenas MD May 24, 2021 4:15 PM Anesthesia Preprocedure Evaluation - Marcelo Cardenas MD - 05/24/2021 1:09 PM CDT Anesthesia Pre-Procedure Evaluation Patient: Mildred Cox : 1945 Procedure : Procedure(s): ENDOSCOPIC RETROGRADE CHOLANGIOPANCREATOGRAPHY ENDOSCOPIC ULTRASOUND, ESOPHAGOSCOPY / UPPER GASTROINTESTINAL TRACT (GI) Past Medical History: Diagnosis Date ??? COPD (chronic obstructive pulmonary disease) (H) ??? Diabetes (H) ??? Hypertension ??? Thyroid disease Past Surgical History: Procedure Laterality Date ? ? HEAD & NECK SURGERY ??? ORTHOPEDIC SURGERY Right foot Allergies Allergen Reactions ??? Codeine Dizziness ??? Oxycodone Nausea ??? Penicillins Other reaction(s): Edema ??? Tramadol Other (See Comments) Swelling in her mouth ??? Sulfa Drugs Rash Social History Tobacco Use ??? Smoking status: Former Smoker Packs/day: 1.00 Years: 40.00 Pack years: 40.00 Types: Cigarettes Quit date: 05/15/2019 Years since quittin.0 ??? Smokeless tobacco: Never Used Substance Use Topics ??? Alcohol use: Yes Comment: rare Wt Readings from Last 1 Encounters: 05/24/21 61.6 kg (135 lb 14.4 oz) Anesthesia Evaluation ROS/MED HX ENT/Pulmonary: (+) mild, COPD, Neurologic: - neg neurologic ROS Cardiovascular: (+) hypertension----- METS/Exercise Tolerance: Hematologic: Comments: No lab results found. No lab results found. - neg hematologic ROS Musculoskeletal: - neg musculoskeletal ROS GI/Hepatic: Renal/Genitourinary: - neg Renal ROS Endo: (+) type II DM, Not using insulin, - not using insulin pump. thyroid problem, hypothyroidism, Psychiatric/Substance Use: - neg psychiatric ROS Infectious Disease: Malignancy: Other: - neg other ROS Physical Exam Airway Mallampati: II TM distance: > 3 FB Neck ROM: full Mouth opening: > 3 cm Respiratory Devices and Support Dental no notable dental history Cardiovascular cardiovascular exam normal Pulmonary pulmonary exam normal OUTSIDE LABS: CBC: No results found for: WBC, HGB, HCT, PLT BMP: No results found for: NA, POTASSIUM, CHLORIDE, CO2, BUN, CR, GLC COAGS: No results found for: PTT, INR, FIBR POC: No results found for: BGM, HCG, HCGS HEPATIC: No results found for: ALBUMIN, PROTTOTAL, ALT, AST, GGT, ALKPHOS, BILITOTAL, BILIDIRECT, RICK OTHER: No results found for: PH, LACT, A1C, ANTONIO, PHOS, MAG, LIPASE, AMYLASE, TSH, T4, T3, CRP, SED Anesthesia Plan ASA Status: 3 Anesthesia Type: General. - Airway: ETT Induction: Intravenous, Propofol. Maintenance: Balanced. Consents Anesthesia Plan(s) and associated risks, benefits, and realistic alternatives discussed. Questions answered and patient/off premise service representative(s) expressed understanding. - Discussed: - Discussed with: Patient - Extended Intubation/Ventilatory Support Discussed: No. - Patient is DNR/DNI Status: No Use of blood products discussed: Yes. - Discussed with: Patient. - Consented: consented to blood products Reason for refusal: other. Postoperative Care Pain management: IV analgesics. PONV prophylaxis: Ondansetron (or other 5HT-3), Dexamethasone or Solumedrol Comments: Marcelo Cardenas MD documented in this encounter Miscellaneous Notes Anesthesia Care Transfer Note - Kevin Roblero APRN RUBBER EXTRUSION MACHINE OPERATOR - 05/24/2021 2:35 PM CDT Patient: Mildred Cox Procedure: Procedure(s): ENDOSCOPIC RETROGRADE CHOLANGIOPANCREATOGRAPHY Diagnosis: Common bile duct dilation [K83.8] Diagnosis Additional Information: No value filed. Anesthesia Type: General Note: Oropharynx: spontaneously breathing Level of Consciousness: awake Oxygen Supplementation: room air Independent Airway: airway patency satisfactory and stable Dentition: dentition unchanged Vital Signs Stable: post-procedure vital signs reviewed and stable Report to RN Given: handoff report given Patient transferred to: Phase II Handoff Report: Identifed the Patient, Identified the Reponsible Provider, Reviewed the pertinent medical history, Discussed the surgical course, Reviewed Intra-OP anesthesia mangement and issues during anesthesia, Set expectations for post-procedure period and Allowed opportunity for questions and acknowledgement of understanding Vitals: Vitals Value Taken Time BP Temp Pulse Resp SpO2 Electronically Signed By: Kevin Roblero APRN CRNA May 24, 2021 2:35 PM documented in this encounter Plan of Treatment Not on filedocumented as of this encounter Visit Diagnoses Not on filedocumented in this encounter Administered Medications Inactive Administered Medications - up to 3 most recent administrations Medication Order MAR Action Action Date Dose Rate Site fentaNYL (PF) (SUBLIMAZE) Given 05/24/2021 2:16 PM CDT 100 mcg injection Intravenous, PRN, Administer over 3-5 Minutes, Starting on Gisell 05/24/21 at 1416, Anesthesia Intra-op lactated ringers infusion New Bag 05/24/2021 2:13 PM CDT Intravenous, CONTINUOUS PRN, Anesthesia Intra-op, Starting on Gisell 05/24/21 at 1413, Until Gisell 05/24/21 at 1435 lidocaine 1 % 0.1-1 mL Given 05/24/2021 [...] lidocaine cream on the same site., Pre-procedure propofol (DIPRIVAN) injection 10 mg/mL v ial Given 05/24/2021 2:16 PM CDT 50 mg Intravenous, PRN, Starting on Gisell 05/24/21 at 1416, Anesthesia Intra-op documented in this encounter Care Teams Owner Operator Tanker Truck Driver Relationship Specialty Start Date End Date System, Provider Not In PCP - General Clinic 05/21/21 documented as of this encounter
--- OUTSIDE RECORDS SUMMARY | 2021-12-02 09:37 | XMS_ITS | Encounter Summary ---
:1945 Author Organization [place] Address [address] [facility] [place] [address] Care Team Providers Name Role Phone System, Provider Not In Primary Care Provider Unavailable Reason for Visit Auth/Cert Specialty Diagnoses / Procedures Referred By Contact Refer red To Contact Surgery Diagnoses Common bile duct dilation Common bile duct dilation [K83.8] Periop Services Procedures HC ERCP W/W/O EVARISTO OF SPEC-BRUSH/WASH ENDOSCOPIC RETROGRADE CHOLANGIOPANCREATOGRAPHY ENDOSCOPIC ULTRASOUND, ESOPHAGOSCOPY / UPPER GASTROINTESTINAL TRACT (GI) [address] [place] [address] Phone: Fax: Referral ID Status Reason Start Date Expiration Date Visits Requ ested Visits Authorized [id number] 1 1 Encounter Details Date Type Department Care Team Description 05/24/2021 Surgery [facility] Shane Murillo ENDOSCO PIC RETROGRADE [facility] PeriOp MD Bruno CHOLANGIOPANCREATOGRAPHY Services [place] [address] GASTROENTEROLOGY [facility] [address] [place] [place] [address] [facility] [address] [place] [address] [phone] Surgery Details Date/Time Status Location OR Service Patient Case Case Traum a Class Class Type Case? 05/24/21 2:00 Posted OR OR Gastroenterology Same Day PM Surgery Panel 1 Procedure LRB Anes Op Region Wound Class Commen ts ENDOSCOPIC RETROGRADE N/A General Mouth II-Clean Conta minated CHOLANGIOPANCREATOGRAPHY Surgeon Surgeon Role Service Panel Shane Murillo MD Primary Gastroenterology 1 documented in this encounter Social History Tobacco [...] DR. SHANE MURILLO M.D. CLINIC PHONE NUMBER: [phone] [facility] documented in this encounter Medications at [...] tablet in the morning. cholecalciferol 50 MCG (1999 Take 2,000 Units by 0 10/23/2020 UT) [...] Glucose by meter (05/24/2021 2:38 PM CDT) P athologist Signature GLUCOSE BY 90 70 - 99 05/24/2021 [facility] METER POCT mg/dL 2:46 PM CDT POC Specimen (Source) Anatomical Collection Method Collection Time Re ceived Time Location / / Volume Laterality Blood, Capillary BLOOD SPECIMEN / 05/24/2021 2:38 04/05/2021 2:46 Unknown PM CDT PM CDT Shane [facility] POCT Performing Organization Address City/State/ZIP Code Phon e Number [place] [address] Care Lab [address] [facility] Lab (1st floor, no room number) UPPER EUS (05/24/2021 2:14 PM CDT) Component Value Ref Test Analysis Performed At [facility] Range Method Time Signature Upper EUS [facility] RADIOLOGY RESULTS Patient Name: Mildred Cox ? Procedure Date: 05/24 2:14 PM ? Account Num desire: [id number] Date of : 1945 ?Admit Type: Out [...] and ?oxygen saturations were monitored continuously. The ?[employer] [place] [employer] [place] II Ultrasound Gastrovideoscope, ?Linear, Model # [id number], [place] #[id number], SN # ?[id number] was introduced through the mouth, and ?advanced [...] Procedure Code(s): ? --- Professional --- ? 38949, Esophagogastroduodenoscopy , flexible, transoral; with endoscopic ? ultrasound examinatio n, including the esophagus, stomach, and either the ? duodenum or a surgically altered stomach where the jejunum is examined ? distal to the anastomosis CPT copyright 2020 [employer]. All rights reserved. The codes documented in this report are prelimin davidson and upon wood pattern maker review may be revised to meet current compliance requirements. Shane Murillo M.D. SHANE MURILLO MD 05/24/2021 2:50:31 PM I was physically present for the entire viewing portion of t he exam. SHANE MURILLO MD Number of Addenda: 0 Note Initiated On: 05/24/2021 2:14 PM MRN: ?[id number] Procedure Date: ? 05/24/2021 2:14:28 PM Total [...] City/State/ZIP Code [place] [address] Care Lab [address] Lab (1st floor, no room number) (ABNORMAL) Comprehensive metabolic panel (05/24/2021 1:19 PM CDT) [facility] Method Time Signature Sodium 139 133 - [...] PM CDT Creatinine 0.84 0.52 - 05/24/2021 LABORATORY 1.04 mg/dL 2:10 PM CDT Calcium [...] Protein Total 7.1 6.8 - 8.8 05/24/2021 [facility] g/dL 2:10 PM CDT Albumin 3.9 3.4 - 5.0 05/24/2021 LABORATORY g/dL 2:10 PM CDT Bilirubin Total 0.6 0.2 - 1.3 05/24/2021 [facility] mg/dL 2:10 PM CDT GFR Estimate 73 >60 05/24/2021 [facility] mL/min/1.7 2:10 PM CDT 3m2 Comment: Effective January 30, 2021 eGF Rcr in adults is calculated using the 2020 CKD-EPI creatinine equation which includ es age and gender (Johan et al., [place], DOI: 10.1056/JTUEee3497332) Specimen Anatomical Collection Method / Collection Time Recei ruth Time (Source) Location / Volume Laterality Blood STRUCTURE OF LEFT Venipuncture / 05/24/2021 1:19 05/24 1:28 HAND / Unknown Unknown PM CDT PM CDT Shane Murillo MD LAB - BLOOD ORDERABLES Performing Organization Address City/State/ZIP Code [place] [address] Care Lab [address] Lab (1st floor, no room number) [...] Address City/State/ZIP Code [place] [address] Care Lab [address] Lab (1st floor, no room number) Glucose by meter (05/24/2021 1:12 PM CDT) P athologist Signature GLUCOSE BY 95 70 - 99 05/24/2021 LABORATORY METER POCT mg/dL 1:19 PM CDT POC Specimen (Source) Anatomical Collection Method Collection Time Re ceived Time Location / / Volume Laterality Blood, Capillary BLOOD SPECIMEN / 05/24/2021 1:12 05/11 1:19 Unknown PM CDT PM CDT Shane Murillo MD LAB - BEAKER POCT Performing Organization Address City/[facility]/ZIP Code Phon [place] [address] Care Lab [address] Lab (1st floor, no room number) documented in this encounter Visit Diagnoses Diagnosis Common bile duct dilation Other specified disorders of biliary tra ct documented in this encounter Administered Medications Inactive Administered [...] in while in Phase II, Starting on [facility] 05/24/21 at 1439, Up to a total [...] sedation, Administer over 1 Minutes, Starting on [facility] 05/24/21 at 1450, For 12 hours, [...] moderate to rey re pain, Starting on [facility] 05/24/21 at 1439, Administer HYDROmorphon e (DILAUDID) up to a total of 5 doses (1 mg) for moderate to severe pain. Notify Provider to assess for uncontrolled pain or analgesic side effects., PACU ketorolac (TORADOL) injection 15 mg 15 mg, Intravenous, EVERY 6 HOURS PRN, moderate to sev ere pain, Starting on [facility] 05/24/21 at 1440, For 5 days, [...] greater than 60 bp m, Starting on Gisell 05/24/21 at 1439, For [...] , Administer over 1-2 Minutes, Starting on Gisell 05/24/21 at 1440, PACU/Phase I I sodium chloride [...] allergy to any local anesthetic or any manosor product. Do NOT use both lidocaine intradermal/subcutaneous [...] (Giv en - Provider: Kevin Roblero APRN [facility]) 0.1-1 mL, Other, EVERY 1 HOUR PRN, [...] Irritant.
documented in this encounter Care Teams Sewing Machine Bobbin Winder Relationship Specialty Start Date End Date System, Provider Not In PCP - General Clinic 05/21/21 documented as of this encounter
--- OUTSIDE RECORDS SUMMARY | 2021-12-02 09:37 | XMS_ITS | Encounter Summary ---
:1945 Author Organization [place] Address [address] [place] [address] Care Team Providers Name Role Phone System, Provider Not In Primary Care Provider Unavailable Encounter Details Date Type Department Care Team Description 05/24/2021 Travel Social History Tobacco Use Types Packs/Day [...] on filedocumented in this encounter Care Teams Ground Systems Engineer Relationship Specialty Start Date End Date System, Provider Not In PCP - General Clinic 05/21/21 documented as of this encounter
[2021-12-02] MEDS: IPRAT-ALBUT 0.5-2.5 MG/3 ML NEB 1 NEB IH (09:59)
[2021-12-02 10:00] VITALS: BP 120/85; PULSE 102; RESP 20; O2SAT 92
[2021-12-02 10:04] LABS: Basophils Percent Auto 0.1 % (0.0-3.0); Eosinophils Percent Auto 0.3 % (0.0-7.0); Hematocrit 36.6 % (33.0-51.0); Immature Granulocytes Abs Auto 0.01 K/uL (0.00-0.30); Lymphocytes Percent Auto 4.4 % (20-44); Mean Corpuscular HGB Conc 33 gm/dL (32-36); Mean Corpuscular Hemoglobin 29 pg (26-34); Mean Corpuscular Volume 90 fL (80-100); Monocytes Percent Auto 7.8 % (0.0-11.0); Neutrophils Percent Auto 87.3 % (42.0-72.0); Platelet Count* 191 K/uL (140-440); RDW Coefficient of Variation % 12.9 % (11.5-15.5); Red Blood Count 4.08 m/uL (4.00-5.20); White Blood Count* 11.08 K/uL (4.50-11.00)
[2021-12-02 10:09] LABS: PCR FLU A Negative PCR FLU A (Negative); PCR FLU B Negative PCR FLU B (Negative); PCR RSV Negative PCR RSV (Negative); SARS PCR* Negative SARS-CoV-2 (Negative)
[2021-12-02 10:14] LABS: Slide Review Reflex No
[2021-12-02 10:17] LABS: Chloride* 99 mmol/L (96-114); Potassium* 4.1 mmol/L (3.6-5.1); Sodium* 132 mmol/L (135-149)
[2021-12-02 10:20] LABS: Blood Urea Nitrogen* 17 mg/dL (7-30); Carbon Dioxide* 24 mmol/L (20-32); Creatinine* 0.7 mg/dL (0.5-1.5); Est. Creatinine Clearance* 41.97; Estimated Glomerular Filt Rate 90 ml/min; Glucose* 236 mg/dL (60-115)
[2021-12-02 10:21] LABS: Calcium* 8.9 mg/dL (8.4-10.6)
[2021-12-02 10:30] LABS: Strep A DNA Probe* NOT DETECTED (No Detected)
[2021-12-02 10:51] VITALS: BP 120/64; PULSE 109; RESP 24; O2SAT 95
[2021-12-02 11:00] VITALS: BP 118/68; PULSE 104; RESP 20; O2SAT 94
[2021-12-02] MEDS: METHYLPREDNISOLONE SOD SUCC 62.5 MG/ML (125) 125 MG IVP (11:19)
== END 2021-12-02 11:22 | disposition home or self-care (01) ==
PROVIDERS: Emergency Provider Emergency Medicine Emergency Medical Services; PCP Family Medicine
DX: Z53.8 Procedure and treatment not carried out for other reasons (principal)
CPT/HCPCS: 99281; 36415; 71045; 80048; 85025; 87502; 87634; 87635; 87651; 93005; 94640; 99285; J2930

== ENCOUNTER 2021-12-04 11:55 | Inpatient (IN) | payer MEDICARE, OTHER, SELFPAY ==
[2021-12-04] VITALS (18 sets, daily range): BP systolic 120–162; BP diastolic 59–92; PULSE 91–112; RESP 14–33; TEMP 36.6–37.2; O2SAT 84–99; BMI 24.5; BMI 24.8
--- NOTE | 2021-12-04 12:50 | CRLHL7_ITS ---
For Patients: As a result of the Century Cures Act, medical imaging exams and procedure reports are released immediately into your electronic medical record. You may view this report before your referring provider. If you have questions, please contact your health care provider. INDICATION: Shortness of breath, cough. TECHNIQUE: Chest 2 views. COMPARISON: Chest x-ray from 12/02/2021. FINDINGS: Lungs: Coarse interstitial markings suggest chronic changes. No focal consolidation. Pleura: No pleural effusion or pneumothorax. Heart and Mediastinum: Upper normal heart size. Hilar prominence is probably enlarged vasculature. Bones: Unremarkable. IMPRESSION: No acute cardiopulmonary disease. Dictated by Evangelist Torres MD @ 12/04/2021 2:43:37 PM (Electronically Signed)
--- OUTSIDE RECORDS SUMMARY | 2021-12-04 13:11 | XMS_ITS | Encounter Summary ---
:1945 Author Organization [place] Address [address] [place] [address] Care Team Providers Name Role Phone System, [...] on filedocumented in this encounter Care Teams Cinnamon Grinder Relationship Specialty Start Date End Date System, Provider Not In PCP - General Clinic 05/21/21 documented as of this encounter
--- OUTSIDE RECORDS SUMMARY | 2021-12-04 13:11 | XMS_ITS | Encounter Summary ---
:1945 Author Organization [place] Address [address] [place] [address] Care Team Providers Name Role Phone Unavailable Primary Care Provider Unavailable Encounter Details Date Type Department Care Team Description 05/03/2021 Orders Only [facility] Calvin Murillo for [facility] Main OR MD Bruno screening for other [address] [facility] GASTROENTEROLOGY viral diseases [place] [id number] [facility] (Prima ry Dx) [address] [address] [place], [place] [address] (Wo rk) Social History Tobacco [...]
--- OUTSIDE RECORDS SUMMARY | 2021-12-04 13:11 | XMS_ITS | Clinical Summary ---
:1945 Author Organization [facility] [place] [address] Care Team Providers Name Role Phone Forrest Wilson MD Primary Care Provider [phone] Negrita London RN Unavailable Allergies Active Allergy [...] Plantar fasciitis medium, Ref: of left foot [phone] cholecalciferol, Take 1 Tablet 0 Active Vitamin [...] mood disorder 03/14/2020 Overview: been on Paxil, [place]'s Wort, Wellbutr in [place] Personal history of colonic polyps 09/26 Overview: Colonoscopy 06/2018 severe diverticuli, r epeat in 5 years, PEG 4L Mild mood disorder 09/12/2020 Overview: been on Paxil, Isidoro's Wort, Wellbutr in [place] Encounters Date Type Specialty Care Team Description 12/02/2021 Orders Only Scanner <No scans attac hed> 11/27/2021 Office Visit Forrest Wilson [facility] F/ U MD [place] ([facility] ent Care, 2, earache and hea dache); [...] 09/25/2021 Travel 09/22/2021 Travel 09/21/2021 Orders Only Lab [facility] 09/21/2021 Orders Only Forrest Wilson [...] 65+ Years) 11/16/2019 Preserv Free COVID-19 vaccine (KARALIT 30mcg/0.3mL) 12YO+ 022 BIVALENT BOOSTER PF, MDV COVID-19 vaccine (KARALIT 30mcg/0.3mL) PF, 1, 04/01/2020 MDV Influenza, High-dose [...] CDT Respiratory Rate 18 02/01/2021 7:10 PM ATG JAVA DEVELOPER Oxygen Saturation 99% 11/27/2021 3:49 PM CDT [...] Visit Forrest Wilson MD [address] [place], [place] [address] (Wo rk) Health Maintenance Due [...] Procedure Name Priority Date/Time Associated Comments Diagnosis SCAN-RADIOLOGY REPORT 12/02/2021 12:00 Re sults for this AM CDT procedure are i n the results section. CT CHEST WO Routine 09/25/2021 1:15 PM [...] Routine general CDT medical examination [facility] LIPID PANEL W REFLEX Add On 09/18/2021 [...] results section. from Last 3 Months Results SCAN-RADIOLOGY REPORT (12/02/2021 12:00 AM CDT) Narrative This result has an attachment that is no t available. Scanner OTHER CT CHEST WO (09/25/2021 1:15 PM CDT) Anatomical Region Laterality Modality CHEST, THORAX, HEART Computed Tomography Specimen (Source) Anatomical Collection Method Collection Time Re ceived Time Location / / Volume Laterality 09/25/2021 3:08 PM CDT Narrative 09/25/2021 3:08 PM CDT For Patients: ??As a result of the Cures Act, medical imaging exams and procedure report s are released immediately into your [facility] medical record. ??You may view this report before your referring provider. ??If you have questions, please contact your health care provider. Indication: Lung nodule Technique: Noncontrast CT chest Please note that all CT scans at this [facility] use dose modulation, iterative reconstruction, and/or weight-based [...] note that all CT scans at this [facility] use dose modulation, iterative reconstruction, and/or weight-based dosing when appropriate to reduce radiation dose to as low as reasonably achievable. Dictated by Enrique Rosario MD @ Sep 25 2 022 ??3:08PM (Electronically Signed) ?? Procedure Note Enrique Rosario MD - 09/25/2021For matting of this note might be different from the original. For Patients: As a result of the Cures Act, medical imaging exams and procedure reports are released immediately into your electronic medical record. You may view this report before your referring provider. If you have questions, please contact [facility] health care provider. Indication: Lung nodule Technique: Noncontrast CT chest Please note that all CT scans at this [facility] use dose modulation, iterative reconstruction, and/or weight-based [...] note that all CT scans at this [facility] use dose modulation, iterative reconstruction, and/or weight-based [...] Organization Address City/State/ZIP Code Phon e Number [facility] [address] [place] [address] (ABNORMAL) HEMOGLOBIN A1C MONITORING (POCT) (09/21/2021 7:48 AM CDT) Analysis Performed At Patho logist Time Signature HEMOGLOBIN A1C 6.9 (H) <=6.4 % 09/21/2021 [facility] MONITORING 10:01 AM CDT [facility]PO[facility] Specimen Anatomical Collection Method / Collection Time Recei ruth Time (Source) Location / Volume Laterality Blood BLOOD SPECIMEN / Venipuncture / 09/21/2021 7:48 2021 7:56 Unknown Unknown AM CDT AM CDT Narrative [facility] - 2021 10:01 AM CDT ? (<=6.9%) [...] Organization Address City/State/ZIP Code Phon e Number [facility] [address] [place] [address] SEDIMENTATION RATE (09/18/2021 9:32 AM CDT) [employer] Method Time Signature SEDIMENTATION RATE 8 <30 mm/hr 09/18/2021 [facility] 2:43 PM CDT [facility] Specimen Anatomical Collection Method / Collection Time Recei ruth Time (Source) Location / Volume Laterality Blood BLOOD SPECIMEN / Venipuncture / 09/18/2021 9:32 2021 9:34 Unknown Unknown AM CDT AM CDT Abby CHICAS HEMATOLOGY Performing Organization Address City/State/ZIP Code Phon e Number [facility] [address] [place] [address] LABORATORY-[facility] [address] LABORATORY LIPID PANEL W REFLEX MEASURED LDL (09/18/2021 9:32 AM CDT) [employer] Method Time Signature CHOLESTEROL,TOTAL 139 100 - [...] Forrest Wilson MD CHEMISTRY Performing Organization Address City/[facility]/ZIP Code Phon e Number [facility] [address] [place] [address] LAB[facility]ATORY-[facility] 2000 LABORATORY C-REACTIVE PROTEIN (09/18/2021 9:32 AM CDT) P athologist Signature C-REACTIVE 0.12 <0.50 09/18/2021 [facility] PROTEIN mg/dL 2:49 PM CDT LAB[facility]ATORY-[facility] LABORATORY Specimen Anatomical Collection Method / Collection Time Recei ruth Time (Source) Location / Volume Laterality Blood BLOOD SPECIMEN / Venipuncture / 09/18/2021 9:32 2021 9:34 Unknown Unknown AM CDT AM CDT Abby CHICAS CHEMISTRY Performing Organization Address City/[facility]/ZIP [facility] Phon e Number [facility] [address] [place] [address] LABORATORY-[facility]TR[facility] 2000 LABORATORY from Last 3 Months Insurance Payer Benefit Plan / Subscriber ID Effective Dates Phone Addre ss Type Group MEDICARE PART B MEDICARE PART B [id number] 2011-Presen ATTN: CLAIMS - HB USE ONLY HB ONLY t [address] [place] [address] MEDICARE PART B MEDICARE PART B [id number] 2011-Presen ATTN: CLAIMS - HB USE ONLY HB ONLY t [address] [place] [address] MEDICARE PART A MEDICARE PART A [id number] 2011-Presen ATTN: CLAIMS - HB USE ONLY HB ONLY t [address] [place] [address] MEDICA MR MEDICA PRIME [id number] 2017-Presen [address] [address] [place] [address] BLUE CROSS MR BC [place] [id number] 2014-Presen [address] [place] [address] MEDICA MEDICA PRIME [id number] 2017-Presen [address] [address] [place] [address] Advance Directives Documents on File Type Date Recorded 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
--- OUTSIDE RECORDS SUMMARY | 2021-12-04 13:11 | XMS_ITS | Encounter Summary ---
:1945 Author Organization [place] Address [address] [facility] [address] Care Team Providers Name Role Phone System, Provider Not In Primary Care Provider Unavailable Reason for Visit Auth/Cert Specialty Diagnoses / Procedures Referred By Contact Refer red To Contact Surgery Diagnoses Common bile duct dilation Common bile duct dilation [K83.8] Periop Services Procedures HC ERCP W/W/O EVARISTO OF SPEC-BRUSH/WASH ENDOSCOPIC RETROGRADE CHOLANGIOPANCREATOGRAPHY ENDOSCOPIC ULTRASOUND, ESOPHAGOSCOPY / UPPER GASTROINTESTINAL TRACT (GI) [address] [place] [address] Phone: Fax: Referral ID Status Reason Start Date Expiration Date Visits Requ ested Visits Authorized [id number] 1 1 Encounter Details Date Type Department Care Team Description 05/24/2021 Surgery [facility] Shane Murillo ENDOSCO PIC RETROGRADE [facility] PeriOp MD Bruno CHOLANGIOPANCREATOGRAPHY Services [place] [address] GASTROENTEROLOGY [facility] [address] [place] [address] [facility] [address] [place] [address] [phone] Surgery Details Date/Time Status Location OR Service [...] DR. SHANE MURILLO M.D. CLINIC PHONE NUMBER: [phone] [facility] documented in this encounter Medications [...] PM CDT PM CDT Shane [facility] PO[facility] Performing Organization Address City/State/ZIP Code Phon [place] [address] Care Lab [address] [facility] Lab (1st floor, no room number) UPPER EUS (05/24/2021 2:14 PM CDT) Component Value Ref Test Analysis Performed At [facility] Range Method Time Signature Upper EUS [facility] RADIOLOGY RESULTS Patient Name: Mildred Cox ? Procedure Date: 05/24 2:14 PM ? Account Num desire: [id number] Date of : 1945 ?Admit Type: Out [...] and ?oxygen saturations were monitored continuously. The ?Estifya II Ultrasound Gastrovideoscope, ?Linear, Model # [id number], Endora #259, SN # ?[id number] was introduced through the mouth, and ?advanced [...] Procedure Code(s): ? --- Professional --- ? 92389, Esophagogastroduodenoscopy , flexible, transoral; with endoscopic ? ultrasound examinatio n, including the esophagus, stomach, and either the ? duodenum or a surgically altered stomach where the jejunum is examined ? distal to the anastomosis CPT copyright 2020 [employer]. All rights reserved. The codes documented in this report are prelimin davidson and upon music worker review may be revised to meet current compliance requirements. Shane Murillo M.D. SHANE MURILLO MD 05/24/2021 2:50:31 PM I was physically present for the entire viewing portion of t he exam. SHANE MURILLO MD Number of Addenda: 0 Note Initiated On: 05/24/2021 2:14 PM MRN: ?[id number] Procedure Date: ? 05/24/2021 2:14:28 PM Total [...] City/State/ZIP Code Ph[place] [address] Care Lab [address] Lab (1st floor, no room number) (ABNORMAL) Comprehensive metabolic panel (05/24/2021 1:19 PM CDT) [facility] Method Time Signature Sodium 139 133 [...] and gender (Johan et al., NE, DOI: 10.1056/[id number]) Specimen Anatomical Collection Method / Collection Time Recei ruth Time (Source) Location / Volume Laterality Blood STRUCTURE OF LEFT Venipuncture / 05/24/2021 1:19 05/24 1:28 HAND / Unknown Unknown PM CDT PM CDT Shane Murillo MD LAB - BLOOD ORDERABLES Performing Organization Address City/State/ZIP Code [place] [address] Care Lab [address] Lab (1st floor, no room number) [...] Address City/State/ZIP Code [place] [address] Care Lab [address] Lab (1st floor, no room number) [...] LAB - BEAKER POCT Performing Organization Address City/[facility]/ZIP Code Phon e [place] [address] Care Lab [address] Lab (1st floor, no room number) [...] in while in Phase II, Starting on [facility] 05/24/21 at 1439, Up to a [...] sedation, Administer over 1 Minutes, Starting on [facility] 05/24/21 at 1450, For 12 hours, Give [...] moderate to rey re pain, Starting on [facility] 05/24/21 at 1439, Administer HYDROmorphon e (DILAUDID) up to a total of 5 doses (1 mg) for moderate to severe pain. Notify Provider to assess for uncontrolled pain or analgesic side effects., PACU ketorolac (TORADOL) injection 15 mg 15 mg, Intravenous, EVERY 6 HOURS PRN, moderate to sev ere pain, Starting on [facility] 05/24/21 at 1440, For 5 days, [...] (Giv en - Provider: Kevin Roblero APRN [facility]) 0.1-1 mL, Other, EVERY 1 HOUR PRN, [...] Irritant.
documented in this encounter Care Teams Production Technologist Relationship Specialty Start Date End Date System, Provider Not In PCP - General Clinic 05/21/21 documented as of this encounter
--- OUTSIDE RECORDS SUMMARY | 2021-12-04 13:11 | XMS_ITS | Encounter Summary ---
:1945 Author Organization [place] Address [address] [facility] [place] [address] Care Team Providers Name Role Phone System, Provider Not In Primary Care Provider Unavailable Reason for Visit Auth/Cert Specialty Diagnoses / Procedures Referred By Contact Refer red To Contact Surgery Diagnoses Common bile duct dilation Common bile duct dilation [K83.8] Rh Periop Services Procedures HC ERCP W/W/O EVARISTO OF SPEC-BRUSH/WASH ENDOSCOPIC RETROGRADE CHOLANGIOPANCREATOGRAPHY ENDOSCOPIC ULTRASOUND, ESOPHAGOSCOPY / UPPER GASTROINTESTINAL TRACT (GI) [address] [place] [address] Phone: Fax: Referral ID Status Reason Start Date Expiration Date Visits Requ ested Visits Authorized [id number] 1 1 Encounter Details Date Type Department Care Team Description 05/24/2021 Anesthesia Event M [facility] Marcelo Cardenas MD [facility] ANESTHESIA NETWORK [address] [place], [place] [address] [facility] Shi Riley APRN LEGAL PROCESS SPECIALIST [address] [facility] [address] [place], [place] [address] [address] [place] [address] Anesthesia Record Procedure Summary Procedure Name Responsible Anesthesia Start Anesthesia Stop Anesthesiologist Time Time ENDOSCOPIC RETROGRADE Marcelo Cardenas MD 05/24/21 1413 2 1435 CHOLANGIOPANCREATOGRAPHY (Mouth) Events Date Time Event Comment 05/24/2021 1310 1406 LEGAL PROCESS SPECIALIST Ready for Procedure 1413 AN REASSESS I attest that I have identified and re-evaluated the patient immediately before the induction of anesthesia and I am satisfied that t he anesthetic plan is suitable for the patient's condition and procedure. The f irst vital signs recorded are pre- inducti on. Kevin Roblero APRN LEGAL PROCESS SPECIALIST 1413 An Start 1414 An Start Data [...] and realistic alternatives discussed. Questions answered and patient/sales representative canvas products(s) expressed understanding. - Discussed: - Discussed with: [...] Care Transfer Note - Kevin Roblero APRN LEGAL PROCESS SPECIALIST - 05/24/2021 2:35 PM CDT Patient: Mildred [...] Intra-op documented in this encounter Care Teams Crop Consultant Relationship Specialty Start Date End Date System, Provider Not In PCP - General Clinic 05/21/21 documented as of this encounter
--- OUTSIDE RECORDS SUMMARY | 2021-12-04 13:11 | XMS_ITS | Encounter Summary ---
:1945 Author Organization [place] Address [address] [place] [address] Care Team Providers Name Role Phone System, [...] on filedocumented in this encounter Care Teams Fireworks Maker Relationship Specialty Start Date End Date System, Provider Not In PCP - General Clinic 05/21/21 documented as of this encounter
--- OUTSIDE RECORDS SUMMARY | 2021-12-04 13:11 | XMS_ITS | Clinical Summary ---
:1945 Author Organization [place] Address [address] [place] [address] Care Team Providers Name Role Phone System, [...] ype Group Dates MEDICARE MEDICARE FOR HB [id number] 2011-Prese [phone] ATTN CLAIMS Medicare SUPPLEMENT nt 40 [address] [place] [address] MEDICA MEDICA PRIME [id number] 2021-Prese [phone] [address] Indemnity SOLUTION [address] [place] [address] Care Teams Sisal Operator Relationship Specialty Start Date End Date System, Provider Not In PCP - General Clinic 05/21/21
--- OUTSIDE RECORDS SUMMARY | 2021-12-04 13:11 | XMS_ITS | Encounter Summary ---
:1945 Author Organization [place] Address [address] [facility] [place] [address] Care Team Providers Name Role Phone System, Provider Not In Primary Care Provider Unavailable Reason for Visit Auth/Cert Specialty Diagnoses / Procedures Referred By Contact Refer red To Contact Surgery Diagnoses Common bile duct dilation Common bile duct dilation [K83.8] Rh Periop Services Procedures HC ERCP W/W/O EVARISTO OF SPEC-BRUSH/WASH ENDOSCOPIC RETROGRADE CHOLANGIOPANCREATOGRAPHY ENDOSCOPIC ULTRASOUND, ESOPHAGOSCOPY / UPPER GASTROINTESTINAL TRACT (GI) [address] [place] [address] Phone: Fax: Referral ID Status Reason Start Date Expiration Date Visits Requ ested Visits Authorized [id number] 1 1 Encounter Details Date Type Department Care Team Description 05/24/2021 Hospital Encounter [facility] Shane Murillo PreOP/PostOP MD Bruno [address] [facility] [place], [place] [address] [facility] [address] [facility] [phone] [place], [place] [address] (Wo rk) Social History Tobacco [...] DR. SHANE MURILLO M.D. CLINIC PHONE NUMBER: [phone] [facility] documented in this encounter Medications at [...] PM CDT PM CDT Shane ARITA - [facility] POCT Performing Organization Address City/State/ZIP Code Phon [place] [address] Care Lab [address] Lab (1st floor, no room number) UPPER EUS (05/24/2021 2:14 PM CDT) Component Value Ref Test Analysis Performed At [facility] gist Range Method Time Signature Upper EUS [facility] RADIOLOGY RESULTS Patient Name: Mildred Cox ? Procedure Date: 05/24 2:14 PM ? Account Num desire: [id number] Date of : 1945 ?Admit Type: Out [...] Exera II Ultrasound Gastrovideoscope, ?Linear, Model # [id number], Endora #259, SN # ?[id number] was introduced through the mouth, and ?advanced [...] Procedure Code(s): ? --- Professional --- ? 90544, Esophagogastroduodenoscopy , flexible, transoral; with endoscopic ? ultrasound examinatio n, including the esophagus, stomach, and either the ? duodenum or a surgically altered stomach where the jejunum is examined ? distal to the anastomosis CPT copyright 2020 [employer]. All rights reserved. The codes documented in this report are prelimin davidson and upon professional fee coder review may be revised to meet current compliance requirements. Shane Murillo M.D. SHANE MURILLO MD 05/24/2021 2:50:31 PM I was physically present for the entire viewing portion of t he exam. SHANE MURILLO MD Number of Addenda: 0 Note Initiated On: 05/24/2021 2:14 PM MRN: [id number] Procedure Date: ? 05/24/2021 2:14:28 PM Total [...] City/State/ZIP Code [place] [address] Care Lab [address] Lab (1st floor, no room number) (ABNORMAL) Comprehensive metabolic panel (05/24/2021 1:19 PM CDT) [facility] gist Method Time Signature Sodium 139 133 [...] and gender (Johan et al., NEJ, DOI: 10.1056/[id number]) Specimen Anatomical Collection Method / Collection Time Recei ruth Time (Source) Location / Volume Laterality Blood STRUCTURE OF LEFT Venipuncture / 05/24/2021 1:19 05/24 1:28 HAND / Unknown Unknown PM CDT PM CDT Shane Murillo MD LAB - BLOOD ORDERABLES Performing Organization Address City/State/ZIP Code [place] [address] Care Lab [address] Lab (1st floor, no room number) [...] Address City/State/ZIP Code [place] [address] Care Lab [address] Lab (1st floor, no room number) [...] Code Phon e Number [place] [address] Care Lab [address] Lab [...] sedation, Administer over 1 Minutes, Starting on [facility] 05/24/21 at 1450, For 12 [...] moderate to rey re pain, Starting on [facility] 05/24/21 at 1439, Administer HYDROmorphon e (DILAUDID) up to a total of 5 doses (1 mg) for moderate to severe pain. Notify Provider to assess for uncontrolled pain or analgesic side effects., PACU ketorolac (TORADOL) injection 15 mg 15 mg, Intravenous, EVERY 6 HOURS PRN, moderate to sev ere pain, Starting on [facility] 05/24/21 at 1440, For 5 days, [...] greater than 60 bp m, Starting on [facility] 05/24/21 at 1439, For 1 dose, [...] (Giv en - Provider: Kevin Roblero APRN BICYCLE REPAIR TECHNICIAN) 0.1-1 mL, Other, EVERY 1 HOUR PRN, [...] Irritant.
documented in this encounter Care Teams Counter Professional Relationship Specialty Start Date End Date System, Provider Not In PCP - General Clinic 05/21/21 documented as of this encounter
--- OUTSIDE RECORDS SUMMARY | 2021-12-04 13:11 | XMS_ITS | Encounter Summary ---
:1945 Author Organization [place] Address [address] [place] [address]. [place] [address] Care Team Providers Name Role Phone System, Provider Not In Primary Care Provider Unavailable Encounter Details Date Type Department Care Team Description 05/01/2021 Medical Correspondence [facility] Scan, PROCEDURE ORDER Health Info Mgmt Non-Provider [facility] [address] [address] Social History Tobacco Use Types [...] on filedocumented in this encounter Care Teams Corporate Compliance Officer Relationship Specialty Start Date End Date System, Provider Not In PCP - General Clinic 05/21/21 documented as of this encounter
[2021-12-04 13:13] LABS: Basophils Absolute Auto 0.01 K/uL (0.00-0.30); Basophils Percent Auto 0.1 % (0.0-3.0); Eosinophils Absolute Auto 0.03 K/uL (0.00-0.50); Eosinophils Percent Auto 0.4 % (0.0-7.0); Hematocrit 33.3 % (33.0-51.0); Hemoglobin* 10.9 gm/dL (12.0-16.0); Immature Granulocytes Abs Auto 0.01 K/uL (0.00-0.30); Lactate* 1.4 mmol/L (0.5-1.9); Lymphocytes Percent Auto 13.3 % (20-44); Mean Corpuscular HGB Conc 33 gm/dL (32-36); Mean Corpuscular Hemoglobin 30 pg (26-34); Mean Corpuscular Volume 90 fL (80-100); Monocytes Percent Auto 16.7 % (0.0-11.0); Neutrophils Absolute Auto 4.93 K/uL (1.7-7.0); Neutrophils Percent Auto 69.4 % (42.0-72.0); Platelet Count* 189 K/uL (140-440); Red Blood Count 3.69 m/uL (4.00-5.20); White Blood Count* 7.12 K/uL (4.50-11.00)
[2021-12-04 13:14] LABS: ABG PCO2 38 mmHG (35-45); Base Excess ABG 3.7 mmol/L (-3.0-3.0); HCO3 ABG 28 mmol/L (21-28); Oxygen Saturation ABG 97 % (92-100); PO2 ABG 75.6 mmHG (80-105); TCO2 ABG 25 mmol/l (21-30); pH ABG 7.47 (7.35-7.45)
[2021-12-04 13:18] LABS: Slide Review Reflex No
[2021-12-04] MEDS: IPRAT-ALBUT 0.5-2.5 MG/3 ML NEB 1 NEB IH ×2 (13:19→17:44)
[2021-12-04 13:21] LABS: Troponin, Point-of-Care* 0.04 ng/ml (0.01-0.04)
[2021-12-04 13:39] LABS: Chloride* 94 mmol/L (96-114)
[2021-12-04 13:40] LABS: Potassium* 3.9 mmol/L (3.6-5.1); Sodium* 129 mmol/L (135-149)
[2021-12-04 13:42] LABS: Creatinine* 0.6 mg/dL (0.5-1.5); D Dimer Quantitative* 0.97 ug/ml (0.00-0.50); Est. Creatinine Clearance* 41.97; Estimated Glomerular Filt Rate 94 ml/min
[2021-12-04 13:43] LABS: Blood Urea Nitrogen* 15 mg/dL (7-30); Carbon Dioxide* 28 mmol/L (20-32); Glucose* 194 mg/dL (60-115)
[2021-12-04 13:44] LABS: Calcium* 7.7 mg/dL (8.4-10.6)
[2021-12-04 13:47] LABS: INR 3.43 (0.91-1.10); Prothrombin Time 36.1 Seconds
[2021-12-04 13:48] LABS: Partial Thromboplastin Time* 49 Seconds (23-33)
[2021-12-04] MEDS: ACETAMINOPHEN 500 MG TABLET 1000 MG PO (13:52)
--- NOTE | 2021-12-04 13:52 | PC.NURSE ---
1000mg tylenol given at this time from verbal order Dr Marion for left ear pain
[2021-12-04 13:53] LABS: NT Pro B Type NatriureticPept* 1410 PG/mL (0-450)
[2021-12-04 13:57] LABS: C Reactive Protein* 17.2 mg/dL (0.5-1.0)
[2021-12-04 14:17] LABS: PCR FLU A Negative PCR FLU A (Negative); PCR FLU B Negative PCR FLU B (Negative); PCR RSV Negative PCR RSV (Negative)
--- NOTE | 2021-12-04 14:24 | CRLHL7_ITS ---
For Patients: As a result of the Century Cures Act, medical imaging exams and procedure reports are released immediately into your electronic medical record. You may view this report before your referring provider. If you have questions, please contact your health care provider. INDICATION: Shortness of breath. TECHNIQUE: CT chest PE was acquired with 95 cc Isovue 370 IV contrast. COMPARISON: CT October 2018 FINDINGS: Pulmonary Arteries: No CT evidence of pulmonary thromboembolic disease. No pulmonary hypertension or right ventricular strain. Heart and Mediastinum: Stable bilateral thyroid nodules measuring up to 25 millimeters on the left. No axillary or supraclavicular lymphadenopathy. Prominent soft tissue and mediastinal lymph nodes as well as right hilar lymph node measuring 20 x 22 millimeters, axial image 84. normal heart size. Normal caliber aorta. Lungs and Airways: Multifocal areas of ground-glass airspace opacities and tree-in-bud nodular airspace opacities as well as more conspicuous solid pulmonary nodules measuring up to 7 millimeters, axial image 127. No central intraluminal lesion. Pleura: The pleural spaces are normal. Abdomen: Stable left hepatic lobe cyst. Bones and soft tissues: The skeletal structures and soft tissues of the chest wall are unremarkable. IMPRESSION: 1. No CT evidence of pulmonary thromboembolic disease. 2. Multifocal bilateral nodular ground-glass and tree-in-bud nodular airspace opacities with more conspicuous nodular airspace opacities. Constellation of findings favor multifocal pneumonia. Recommend unenhanced chest CT in 3 months after appropriate medical therapy to document resolution and to assess for underlying malignant potential. 3. Prominent mediastinal and hilar lymph nodes/lymphadenopathy. Recommend attention on follow-up exams. Please note that all CT scans at this facility use dose modulation, iterative reconstruction, and/or weight-based dosing when appropriate to reduce radiation dose to as low as reasonably achievable. Dictated by Enrique Art MD @ 12/04/2021 3:41:14 PM (Electronically Signed)
[2021-12-04 14:28] LABS: SARS PCR* Negative SARS-CoV-2 (Negative)
[2021-12-04 14:50] LABS: Troponin, Point-of-Care* 0.02 ng/ml (0.01-0.04)
[2021-12-04 15:16] LABS: Albumin* 3.7 g/dL (3.3-5.0)
[2021-12-04 15:19] LABS: Alanine Aminotransferase* 26 U/L (4-35); Alkaline Phosphatase* 72 U/L (40-150); Aspartate Amino Transferase* 44 U/L (12-35); Bilirubin Direct* 0.2 mg/dL (0.0-0.5); Bilirubin Total* 0.5 mg/dL (0.1-1.5); Total Protein* 6.4 g/dL (6.0-8.3)
[2021-12-04 15:21] LABS: Ethanol* < 0.01 % (0.01-0.03)
--- NOTE | 2021-12-04 15:40 | ED_ITS ---
HPI - SOB/Dyspnea General Date Seen: 12/04/21 Chief Complaint: Shortness of Breath/Dyspnea Stated Complaint: Short of breath, cough, ear pain Time Seen by Provider: 12/04/21 12:11 Source: patient Mode of arrival: ambulatory Limitations: no limitations History of Present Illness HPI Narrative: Patient is a eunice 76-year-old female who is brought in by family for evaluation of shortness of breath, and cold-like symptoms. She was seen 2 days ago in the emergency room, thought tap potentially have a URI or COPD exacerbation, today she was having increased shortness of breath at home, and they had an O2 saturation monitor that showed she was 70%. I brought her in for further assessment. She is not on chronic oxygen, she denies any chest pain, she has have chronic left ear pain. 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 No history of falls or injury, she denies any nausea diaphoresis leg swelling, or history of pulmonary emboli. There is a note in her chart about COPD. MD elicited complaint: shortness of breath Pertinent past history: COPD Onset (ago): day(s) Context: recent illness Timing: constant Severity: moderate Exacerbating factors: lying flat and deep breaths Relieving factors: oxygen Known history of: COPD Associated symptoms: denies other symptoms Treatment prior to arrival: none Related Data Home oxygen amount: none Home Medications Medication Instructions Recorded Confirmed atorvastatin 40 mg tablet 40 mg PO QHS 11/19/21 12/04/21 blood sugar diagnostic (Contour #[id number] ea 11/19/21 11/19/21 Next Test Strips) bupropion HCl 150 mg tablet,12 hr 150 mg PO DAILY 11/19/21 12/04/21 sustained-release cyclobenzaprine 10 mg tablet 10 mg PO DAILY 11/19/21 12/04/21 cyclosporine 0.05 % eye drops in a 1 drp ophthalmic (eye) BID 11/19/21 12/04/21 dropperette (Restasis) lancets 33 gauge (TRUEplus Lancets) #100 ea 11/19/21 11/19/21 latanoprost 0.005 % eye drops 1 drp ophthalmic (eye) DAILY 11/19/21 12/04/21 metformin 500 mg tablet,extended 500 mg PO DAILY 11/19/21 12/04/21 release 24 hr sertraline 50 mg tablet 50 mg PO DAILY 11/19/21 12/04/21 ascorbic acid (vitamin C) 500 mg 500 mg PO DAILY 12/04/21 12/04/21 tablet cetirizine 10 mg tablet (All Day 10 mg PO DAILY 12/04/21 12/04/21 Allergy (cetirizine)) cholecalciferol (vitamin D3) 50 50 mcg PO DAILY 12/04/21 12/04/21 mcg (2,000 unit) capsule multivitamin (Multiple Vitamins 1 tab PO DAILY 12/04/21 12/04/21 tablet) nitroglycerin 0.4 mg sublingual 0.4 mg sublingual Q5M PRN 12/04/21 12/04/21 tablet Allergies Allergy/AdvReac Type Severity Reaction Status Date / Time tramadol Allergy Severe Anaphylaxis Verified 12/04/21 12:16 Penicillins Allergy Intermediate Swelling Verified 12/04/21 12:16 of Lip/Tongue/Throat codeine Allergy Mild Dizziness Verified 12/04/21 12:16 Sulfa (Sulfonamide Allergy Mild Rash Verified 12/04/21 12:16 Antibiotics) Review of Systems Status of ROS: Reports: 10 or more systems reviewed and unremarkable except as noted in History and below [facility] Social History Smoking Status: Former smoker What tobacco products do you use: cigarettes Years smoked: 60 Smoking quit date/years: >15 years ago Do you use any of these nicotine containing products: None Second hand tobacco smoke exposure: No How often do you have a drink containing alcohol: monthly or less How often do you have six or more drinks on one occasion: Less than monthly AUDIT-C Alcohol total score: 2 Non-prescribed substance use: denies use service: No Exam Narrative: Exam Narrative: Patient is the nice lady in no apparent distress, she is in room 6, her oxygen saturation on room air is approximately 86-90%. Pupils are equal round reactive to light there is no scleral icterus or redness TMs are normal oropharynx is no rmal, there is no lymphadenopathy anterior posterior chains, her JVP is 2-4 cm, her neck is supple, her chest has decreased air entry bilaterally, but I do not hear any wheezes occasional crackles are noted in her bases. No signs of respiratory distress, S1-S2 are normal there is no S3-S4 clicks murmurs or gallops, abdomen is soft and obese there is no guarding no past splenomegaly. Lower extremities show 1+ pitting edema bilaterally. Normal strength in upper lower extremities, cap refill normal and no rashes. Const: Vital Signs, click to edit/add: Vital Signs - 24 hr 12/04/21 12:21 12/04/21 12:31 12/04/21 12:50 Temperature 98.6 F Pulse Rate [Pulse Oximeter] 112 H Respiratory Rate 16 14 Blood Pressure [Ri ght Upper Arm] 162/77 H Pulse Oximetry 90 84 L 88 Oxygen Delivery Me thod Room Air Room Air Nasal Cannula Oxygen Flow Rate 3 Documenting provider has reviewed patient's vital signs: yes Course Vital Signs Vital signs: Initial Vital Signs Temperature 98.6 F 12/04/21 12:21 Temperature Source Temporal Artery Scan 12/04/21 12:21 Pulse Rate 112 H 12/04/21 12:21 Pulse Rhythm 12/04/21 12:21 Pulse Strength 3+ Normal 12/04/21 12:21 Respiratory Rate 16 12/04/21 12:21 Blood Pressure 162/77 H 12/04/21 12:21 Blood Pressure Mean 105 12/04/21 12:21 Blood Pressure Position Sitting 12/04/21 12:21 Pulse Oximetry 90 12/04/21 12:21 Oxygen Delivery Method 12/04/21 12:21 Vital Signs Temperature 98.6 F 12/04/21 12:21 Pulse Rate 112 H 12/04/21 12:21 Respiratory Rate 16 12/04/21 12:21 Blood Pressure 162/77 H 12/04/21 12:21 Pulse Oximetry 90 12/04/21 12:21 Oxygen Delivery Method 12/04/21 12:21 Temperature 98.6 F 12/04/21 12:21 Pulse Rate 112 H 12/04/21 12:21 Respiratory Rate 14 12/04/21 12:50 Blood Pressure 162/77 H 12/04/21 12:21 Pulse Oximetry 88 12/04/21 12:50 Oxygen Delivery Method 12/04/21 12:50 Oxygen Flow Rate 3 12/04/21 12:50 MDM - SOB/Dyspnea MDM Narrative Medical decision making narrative: Life-threatening differential diagnosis includes occluded COPD exacerbation, pulmonary edema, acute coronary syndromes, pulmonary embolism, pneumonia, and pneumothorax. Other differential diagnosis considerations include asthma, bronchitis as well as other etiologies Differential Diagnosis Differential diagnosis: Likely acute exacerbation of chronic obstructive airways disease, congestive heart failure, community acquired pneumonia, asthma with exacerbation and pulmonary embolism Medical Records Attestation: I reviewed the patient's medical records. Lab Data Attestation: I reviewed the patient's lab results. Labs: Lab Results 12/04/21 12/04/21 12/04/21 Range/Units 12:35 13:00 13:00 WBC 7.12 (4.50-11.00) K/uL RBC 3.69 L (4.00-5.20) m/uL Hgb 10.9 L (12.0-16.0) gm/dL Hct 33.3 (33.0-51.0) % MCV 90 (80-100) fL MCH 30 (26-34) pg MCHC 33 (32-36) gm/dL RDW Coeff of Blank 13.0 (11.5-15.5) % Plt Count 189 (140-440) K/uL Neut % (Auto) 69.4 (42.0-72.0) % Lymph % (Auto) 13.3 L (20-44) % [place] % (Auto) 16.7 H (0.0-11.0) % Eos % (Auto) 0.4 (0.0-7.0) % Baso % (Auto) 0.1 (0.0-3.0) % Neut # (Auto) 4.93 (1.7-7.0) K/uL Lymph # (Auto) 0.90 (0.90-2.90) K/uL [place] # (Auto) 1.20 H (0.00-0.90) K/UL Eos # (Auto) 0.03 (0.00-0.50) K/uL Baso # (Auto) 0.01 (0.00-0.30) K/uL Abs Immat Gran (auto) 0.01 (0.00-0.30) K/uL INR (0.91-1.10) APTT (23-33) Seconds D-Dimer Quant (PE/DVT) 0.97 H (0.00-0.50) ug/ml ABG pH (7.35-7.45) ABG pCO2 (35-45) mmHG ABG pO2 (80-105) mmHG ABG HCO3 (21-28) mmol/L ABG Total CO2 (21-30) mmol/l ABG O2 Saturation (92-100) % ABG Base Excess (-3.0-3.0) mmol/L Sodium (135-149) mmol/L Potassium (3.6-5.1) mmol/L Chloride (96-114) mmol/L Carbon Dioxide (20-32) mmol/L BUN (7-30) mg/dL Creatinine (0.5-1.5) mg/dL Estimated Creat Clear Estimated GFR ml/min Glucose (60-115) mg/dL Lactate (0.5-1.9) mmol/L Calcium (8.4-10.6) mg/dL Total Bilirubin (0.1-1.5) mg/dL Direct Bilirubin (0.0-0.5) mg/dL AST (12-35) U/L ALT (4-35) U/L Alkaline Phosphatase (40-150) U/L C-Reactive Protein (0.5-1.0) mg/dL NT-Pro-B Natriuret Pep (0-450) PG/mL Total Protein (6.0-8.3) g/dL Albumin (3.3-5.0) g/dL Ethyl Alcohol (0.01-0.03) % SARS-CoV-2 (PCR) Negative SARS-CoV-2 (Negative) Influenza Type A (PCR) Negative PCR FLU A (Negative) Influenza Type B (PCR) Negative PCR FLU B (Negative) RSV (PCR) Negative PCR RSV (Negative) POC Troponin I (0.01-0.04) ng/ml 12/04/21 12/04/21 12/04/21 Range/Units 13:00 13:00 13:00 WBC (4.50-11.00) K/uL RBC (4.00-5.20) m/uL Hgb (12.0-16.0) gm/dL Hct (33.0-51.0) % MCV (80-100) fL MCH (26-34) pg MCHC (32-36) gm/dL RDW Coeff of Blank (11.5-15.5) % Plt Count (140-440) K/uL Neut % (Auto) (42.0-72.0) % Lymph % (Auto) (20-44) % [place] % (Auto) (0.0-11.0) % Eos % (Auto) (0.0-7.0) % Baso % (Auto) (0.0-3.0) % Neut # (Auto) (1.7-7.0) K/uL Lymph # (Auto) (0.90-2.90) K/uL [place] # (Auto) (0.00-0.90) K/UL Eos # (Auto) (0.00-0.50) K/uL Baso # (Auto) (0.00-0.30) K/uL Abs Immat Gran (auto) (0.00-0.30) K/uL INR 3.43 H (0.91-1.10) APTT 49 H (23-33) Seconds D-Dimer Quant (PE/DVT) (0.00-0.50) ug/ml ABG pH (7.35-7.45) ABG pCO2 (35-45) mmHG ABG pO2 (80-105) mmHG ABG HCO3 (21-28) mmol/L ABG Total CO2 (21-30) mmol/l ABG O2 Saturation (92-100) % ABG Base Excess (-3.0-3.0) mmol/L Sodium 129 L (135-149) mmol/L Potassium 3.9 (3.6-5.1) mmol/L Chloride 94 L (96-114) mmol/L Carbon Dioxide 28 (20-32) mmol/L BUN 15 (7-30) mg/dL Creatinine 0.6 (0.5-1.5) mg/dL Estimated Creat Clear 41.97 Estimated GFR 94 ml/min Glucose 194 H (60-115) mg/dL Lactate (0.5-1.9) mmol/L Calcium 7.7 L (8.4-10.6) mg/dL Total Bilirubin (0.1-1.5) mg/dL Direct Bilirubin (0.0-0.5) mg/dL AST (12-35) U/L ALT (4-35) U/L Alkaline Phosphatase (40-150) U/L C-Reactive Protein 17.2 H (0.5-1.0) mg/dL NT-Pro-B Natriuret Pep 1410 H (0-450) PG/mL Total Protein (6.0-8.3) g/dL Albumin (3.3-5.0) g/dL Ethyl Alcohol (0.01-0.03) % SARS-CoV-2 (PCR) (Negative) Influenza Type A (PCR) (Negative) Influenza Type B (PCR) (Negative) RSV (PCR) (Negative) POC Troponin I (0.01-0.04) ng/ml 12/04/21 12/04/21 12/04/21 Range/Units 13:00 13:00 13:10 WBC (4.50-11.00) K/uL RBC (4.00-5.20) m/uL Hgb (12.0-16.0) gm/dL Hct (33.0-51.0) % MCV (80-100) fL MCH (26-34) pg MCHC (32-36) gm/dL RDW Coeff of Blank (11.5-15.5) % Plt Count (140-440) K/uL Neut % (Auto) (42.0-72.0) % Lymph % (Auto) (20-44) % [place] % (Auto) (0.0-11.0) % Eos % (Auto) (0.0-7.0) % Baso % (Auto) (0.0-3.0) % Neut # (Auto) (1.7-7.0) K/uL Lymph # (Auto) (0.90-2.90) K/uL [place] # (Auto) (0.00-0.90) K/UL Eos # (Auto) (0.00-0.50) K/uL Baso # (Auto) (0.00-0.30) K/uL Abs Immat Gran (auto) (0.00-0.30) K/uL INR (0.91-1.10) APTT (23-33) Seconds D-Dimer Quant (PE/DVT) (0.00-0.50) ug/ml ABG pH 7.47 H (7.35-7.45) ABG pCO2 38 (35-45) mmHG ABG pO2 75.6 L (80-105) mmHG ABG HCO3 28 (21-28) mmol/L ABG Total CO2 25 (21-30) mmol/l ABG O2 Saturation 97 (92-100) % ABG Base Excess 3.7 H (-3.0-3.0) mmol/L Sodium (135-149) mmol/L Potassium (3.6-5.1) mmol/L Chloride (96-114) mmol/L Carbon Dioxide (20-32) mmol/L BUN (7-30) mg/dL Creatinine (0.5-1.5) mg/dL Estimated Creat Clear Estimated GFR ml/min Glucose (60-115) mg/dL Lactate 1.4 (0.5-1.9) mmol/L Calcium (8.4-10.6) mg/dL Total Bilirubin (0.1-1.5) mg/dL Direct Bilirubin (0.0-0.5) mg/dL AST (12-35) U/L ALT (4-35) U/L Alkaline Phosphatase (40-150) U/L C-Reactive Protein (0.5-1.0) mg/dL NT-Pro-B Natriuret Pep (0-450) PG/mL Total Protein (6.0-8.3) g/dL Albumin (3.3-5.0) g/dL Ethyl Alcohol (0.01-0.03) % SARS-CoV-2 (PCR) (Negative) Influenza Type A (PCR) (Negative) Influenza Type B (PCR) (Negative) RSV (PCR) (Negative) POC Troponin I 0.04 (0.01-0.04) ng/ml 12/04/21 12/04/21 Range/Units 14:35 14:39 WBC (4.50-11.00) K/uL RBC (4.00-5.20) m/uL Hgb (12.0-16.0) gm/dL Hct (33.0-51.0) % MCV (80-100) fL MCH (26-34) pg MCHC (32-36) gm/dL RDW Coeff of Blank (11.5-15.5) % Plt Count (140-440) K/uL Neut % (Auto) (42.0-72.0) % Lymph % (Auto) (20-44) % [place] % (Auto) (0.0-11.0) % Eos % (Auto) (0.0-7.0) % Baso % (Auto) (0.0-3.0) % Neut # (Auto) (1.7-7.0) K/uL Lymph # (Auto) (0.90-2.90) K/uL [place] # (Auto) (0.00-0.90) K/UL Eos # (Auto) (0.00-0.50) K/uL Baso # (Auto) (0.00-0.30) K/uL Abs Immat Gran (auto) (0.00-0.30) K/uL INR (0.91-1.10) APTT (23-33) Seconds D-Dimer Quant (PE/DVT) (0.00-0.50) ug/ml ABG pH (7.35-7.45) ABG pCO2 (35-45) mmHG ABG pO2 (80-105) mmHG ABG HCO3 (21-28) mmol/L ABG Total CO2 (21-30) mmol/l ABG O2 Saturation (92-100) % ABG Base Excess (-3.0-3.0) mmol/L Sodium (135-149) mmol/L Potassium (3.6-5.1) mmol/L Chloride (96-114) mmol/L Carbon Dioxide (20-32) mmol/L BUN (7-30) mg/dL Creatinine (0.5-1.5) mg/dL Estimated Creat Clear Estimated GFR ml/min Glucose (60-115) mg/dL Lactate (0.5-1.9) mmol/L Calcium (8.4-10.6) mg/dL Total Bilirubin 0.5 (0.1-1.5) mg/dL Direct Bilirubin 0.2 (0.0-0.5) mg/dL AST 44 H (12-35) U/L ALT 26 (4-35) U/L Alkaline Phosphatase 72 (40-150) U/L C-Reactive Protein (0.5-1.0) mg/dL NT-Pro-B Natriuret Pep (0-450) PG/mL Total Protein 6.4 (6.0-8.3) g/dL Albumin 3.7 (3.3-5.0) g/dL Ethyl Alcohol < 0.01 L (0.01-0.03) % SARS-CoV-2 (PCR) (Negative) Influenza Type A (PCR) (Negative) Influenza Type B (PCR) (Negative) RSV (PCR) (Negative) POC Troponin I 0.02 (0.01-0.04) ng/ml ABG Data ABG results: Patient is clearly hypoxic on her ABG. Bicarb is upper limits of normal, her total CO2 is normal. Attestation: I personally reviewed and interpreted this ABG as follows: Imaging Data CT scan - chest: Attestation: I have reviewed the pertinent imaging results. My impression: Chest x-ray showed no acute findings Radiologist's impression: Patient: RHIANNA MADSEN Facility: [facility] Site . Site : 1945 Study: CT Chest Angio PE W/ISOVUE 370 95CC-12/04/2021 2:59:17 PM Ordering Physician: Sanam Purdy Final Report: INDICATION: Shortness of breath. TECHNIQUE: CT chest PE was acquired with 95 cc Isovue 370 IV contrast. COMPARISON: CT October 2018 FINDINGS: Pulmonary Arteries: No CT evidence of pulmonary thromboembolic disease. No pulmonary hypertension or right ventricular strain. Heart and Mediastinum: Stable bilateral thyroid nodules measuring up to 25 millimeters on the left. No axillary or supraclavicular lymphadenopathy. Prominent soft tissue and mediastinal lymph nodes as well as right hilar lymph node measuring 20 x 22 millimeters, axial image 84. normal heart size. Normal caliber aorta. Lungs and Airways: Multifocal areas of ground-glass airspace opacities and tree-in-bud nodular airspace opacities as well as more conspicuous solid pulmonary nodules measuring up to 7 millimeters, axial image 127. No central intraluminal lesion. Pleura: The pleural spaces are normal. Abdomen: Stable left hepatic lobe cyst. Bones and soft tissues: The skeletal structures and soft tissues of the chest wall are unremarkable. IMPRESSION: 1. No CT evidence of pulmonary thromboembolic disease. 2. Multifocal bilateral nodular ground-glass and tree-in-bud nodular airspace opacities with more conspicuous nodular airspace opacities. Constellation of findings favor multifocal pneumonia. Recommend unenhanced chest CT in 3 months after appropriate medical therapy to document resolution and to assess for underlying malignant potential. 3. Prominent mediastinal and hilar lymph nodes/lymphadenopathy. Recommend attention on follow-up exams. Please note that all CT scans at this facility use dose modulation, iterative reconstruction, and/or weight-based dosing when appropriate to reduce radiation dose to as low as reasonably achievable. Dictated by Enrique Art MD @ 12/04/2021 3:41:14 PM (Electronic Signature) ECG Data Attestation: I personally reviewed and interpreted this ECG as follows: Prior ECG tracings: not available for review Interpretation: EKG shows occasional PVCs with right bundle-branch block, Discharge Plan Discharge Clinical Impression: Hypoxia, Pneumonia Patient Disposition: Admitted As Inpatient Condition: Stable
[2021-12-04] MEDS: cefTRIAXone 1 GM in 0.9 % SODIUM CHLORIDE Mini-bag 100 ML IVPB (16:23)
[2021-12-04] MEDS: dexAMETHasone 4 MG/ML VIAL 10 MG IV (16:23)
[2021-12-04 16:42] LABS: Procalcitonin* 0.32 ng/mL (<0.50)
[2021-12-04] MEDS: AZITHROMYCIN 500 MG in 0.9 % SODIUM CHLORIDE 250 ml 250 ML 255 MG IVPB (16:44)
[2021-12-04] MEDS: KETOROLAC 30 MG/ML inj IVP (17:16)
[2021-12-04] MEDS: 0.9 % SODIUM CHLORIDE 500 ML 500 ML IV (17:32)
[2021-12-04] MEDS: LORazepam 2 MG/ML inj IVP (17:36)
--- NOTE | 2021-12-04 17:40 | P.IMHP_ITS ---
Hospitalist- H&P: HPI History of Present Illness Date Seen: 12/04/21 Chief complaint: Short of breath, cough, ear pain Narrative: ADMISSION HISTORY AND PHYSICAL - HOSPITALIST Chief Complaint: I have been getting more and more short of breath HPI: 76-year-old white female, Mildred, is brought in by her family secondary to increasing shortness of breath. She recently was seen at urgent care for left ear pain. This was felt to be related to TMJ. She then presented to the ED 2 days ago with shortness of breath. Seemed fine once evaluated in the ED and POX was in the mid 90s. She received 1 dose of Solu-Medrol but was not sent home on antibiotics. Her chest x-ray was clear at that time. Over the last 48 hours she has continued to feel short of breath. Today she came back in with report of sats at home in the 70s. With 2 L of oxygen she was in the high 80s here. No reported fevers. She is coughing. Nothing productive. She feels weak. She is feels anxious. I've updated the PFSH, medications and allergies in the [facility] tabs. INVESTIGATIONS: LABS/MICRO/ECG/IMAGING Mildly hypertensive: 139/92. Pulse 100-110. Satting 88 on 2 L. At 1 point we got her up without oxygen and she went to the bathroom, walking fairly steadily. When she returned she was feeling tachypneic and anxious and her sats were in the mid 70s with a heart rate of 130. CBC reveals a white blood cell count that is actually down trending, on the it was 11, today 7.12 - however, CRP is 17.2. Procalcitonin is normal. Albumin and protein are normal. BNP 1410 Hemoglobin 10.9 D-dimer 0.9 Oddly INR 3.43 not on anticoagulation? ? ABG on 2 L shows pH is 7.47, CO2 38, O2 75 and bicarb 28. This gives her a Pa02/FI02 ratio of 360. Sodium is down trending, now 129. One hundred thirty-two at her last visit. O therwise normal electrolytes and normal renal function. Calcium has dropped to 7.7 LFT shows just a mild bump in her AST Blood cultures pending Chest CTA IMPRESSION: 1. No CT evidence of pulmonary thromboembolic disease. 2. Multifocal bilateral nodular ground-glass and tree-in-bud nodular airspace opacities with more conspicuous nodular airspace opacities. Constellation of findings favor multifocal pneumonia. Recommend unenhanced chest CT in 3 months after appropriate medical therapy to document resolution and to assess for underlying malignant potential. 3. Prominent mediastinal and hilar lymph nodes/lymphadenopathy. Recommend attention on follow-up exams. REVIEW OF SYSTEMS: 12-point ROS completed with patient and negative unless otherwise stated in HPI or below. PHYSICAL EXAM: CODE STATUS: FULL CONSTITUTIONAL: looks older than stated age; fidgety. mildly anxious. VITAL SIGNS: see record. HEENT: Normocephalic, atraumatic. PERRL, EOMI, conjunctivae pink, no scleral icterus. Ears and nose externally normal. Pharynx normal. NECK: No JVD. No carotid bruit, no thyromegaly, no adenopathy. CHEST: rohonchi without wheeze. HEART: S1 and S2 normal. No harsh murmurs. Edema MUSCULOSKELETAL: No gross joint deformity or swelling. NEURO: Cranial nerves intact. Grossly intact. No asymmetric findings. SKIN: No rashes, petechiae, concerning changes PSYCHIATRIC: Euthymic. ADMIT TO MEDSURG: CCU DVT: Lovenox GI: PO intake Time spent: 70 minutes examining patient, conferring with family and patient, care staff, developing care plan [facility] Medical History Chronic anxiety COPD (chronic obstructive pulmonary disease) H/O tobacco use, presenting hazards to health Hypertension Mild CAD Mixed hyperlipidemia Osteoporosis Type 2 diabetes mellitus Surgical History Cataract Sherman's neuroma of right foot Social History Smoking Status: Former smoker What tobacco products do you use: cigarettes Years smoked: 60 Smoking quit date/years: >15 years ago Do you use any of these nicotine containing products: None Second hand tobacco smoke exposure: No How often do you have a drink containing alcohol: monthly or less How often do you have six or more drinks on one occasion: Less than monthly AUDIT-C Alcohol total score: 2 Non-prescribed substance use: denies use service: No Meds Home Medications and Allergies Home Medications Medication Instructions Recorded Confirmed Type atorvastatin 40 mg tablet 40 mg PO QHS 11/19/21 12/04/21 History blood sugar diagnostic (Contour #10 ea 11/19/21 11/19/21 History Next Test Strips) bupropion HCl 150 mg tablet,12 hr 150 mg PO DAILY 11/19/21 12/04/21 History sustained-release cyclobenzaprine 10 mg tablet 10 mg PO DAILY 11/19/21 12/04/21 History cyclosporine 0.05 % eye drops in a 1 drp ophthalmic (eye) BID 11/19/21 12/04/21 History dropperette (Restasis) lancets 33 gauge (TRUEplus Lancets) #100 ea 11/19/21 11/19/21 History latanoprost 0.005 % eye drops 1 drp ophthalmic (eye) DAILY 11/19/21 12/04/21 History metformin 500 mg tablet,extended 500 mg PO DAILY 11/19/21 12/04/21 History release 24 hr sertraline 50 mg tablet 50 mg PO DAILY 11/19/21 12/04/21 History ascorbic acid (vitamin C) 500 mg 500 mg PO DAILY 12/04/21 12/04/21 History tablet cetirizine 10 mg tablet (All Day 10 mg PO DAILY 12/04/21 12/04/21 History Allergy (cetirizine)) cholecalciferol (vitamin D3) 50 50 mcg PO DAILY 12/04/21 12/04/21 History mcg (2,000 unit) capsule multivitamin (Multiple Vitamins 1 tab PO DAILY 12/04/21 12/04/21 History tablet) nitroglycerin 0.4 mg sublingual 0.4 mg sublingual Q5M PRN 12/04/21 12/04/21 History tablet Allergies Allergy/AdvReac Type Severity Reaction Status Date / Time tramadol Allergy Severe Anaphylaxis Verified 12/04/21 12:16 Penicillins Allergy Intermediate Swelling Verified 12/04/21 12:16 of Lip/Tongue/Throat codeine Allergy Mild Dizziness Verified 12/04/21 12:16 Sulfa (Sulfonamide Allergy Mild Rash Verified 12/04/21 12:16 Antibiotics) Exam Const: Vital Signs, click to edit/add: Vital Signs - 24 hr 12/04/21 12:21 12/04/21 12:31 12/04/21 12:50 Temperature 98.6 F Pulse Rate [Pulse Oximeter] 112 H Respiratory Rate 16 14 Blood Pressure [Ri ght Upper Arm] 162/77 H Pulse Oximetry 90 84 L 88 Oxygen Delivery Me thod Room Air Room Air Nasal Cannula Oxygen Flow Rate 3 12/04/21 13:18 12/04/21 13:30 12/04/21 14:00 Temperature Pulse Rate [Pulse Oximeter] 98 91 92 Respiratory Rate 31 H 33 H 24 Blood Pressure [Ri ght Upper Arm] 120/67 124/65 148/70 H Pulse Oximetry 88 97 99 Oxygen Delivery Me thod Nasal Cannula Nasal Cannula Nasal Cannula Oxygen Flow Rate 3 3 3 12/04/21 14:33 12/04/21 15:00 12/04/21 17:16 Temperature 98 F Pulse Rate [Pulse Oximeter] 98 107 H Respiratory Rate 20 20 Blood Pressure [Ri ght Upper Arm] 139/75 131/78 Pulse Oximetry 96 94 Oxygen Delivery Me thod Nasal Cannula Nasal Cannula Oxygen Flow Rate 3 3 12/04/21 15:30 12/04/21 16:00 12/04/21 16:30 Temperature Pulse Rate [Pulse Oximeter] 101 H 110 H 110 H Respiratory Rate 20 17 20 Blood Pressure [Ri ght Upper Arm] 138/59 L 152/80 H 139/92 H Pulse Oximetry 97 98 95 Oxygen Delivery Me thod Nasal Cannula Nasal Cannula Nasal Cannula Oxygen Flow Rate 3 3 3 Hospitalist - H&P: Result Labs Labs: Short CBC 12/04/21 Range/Units 13:00 WBC 7.12 (4.50-11.00) K/uL Hgb 10.9 L (12.0-16.0) gm/dL Hct 33.3 (33.0-51.0) % Plt Count 189 (140-440) K/uL BMP 12/04/21 13:00 Sodium 129 L Potassium 3.9 Chloride 94 L Carbon Dioxide 28 BUN 15 Creatinine 0.6 Glucose 194 H Calcium 7.7 L Liver Function 12/04/21 Range/Units 14:39 Total Bilirubin 0.5 (0.1-1.5) mg/dL Direct Bilirubin 0.2 (0.0-0.5) mg/dL AST 44 H (12-35) U/L ALT 26 (4-35) U/L Alkaline Phosphatase 72 (40-150) U/L Albumin 3.7 (3.3-5.0) g/dL Assessment and Plan Assessment and plan (1) Acute respiratory failure with hypoxia: Problem comment: -ABG reviewed; chest CT reviewed. CRP up, WBC and procal normal. COPD vs viral etiology? given decadron in the ED will continue with oral prednisone here on the floor and azithromycin and rocephin for abx. duonebs and corticosteroids by neb ordered. -should have repeat CT and see pulmonary medicine as an outpatient -consider joellen and starting her on LAMA, LABA meds now and/or discharge Status: Acute (2) Bilateral pneumonia: Problem comment: oxygen to support - consider heart failure with BNP elevation; will order echo. troponin reviewed and undectable. trend labs; tailor abx when possible. strep pneumo antigen pending. bc pending. continue azithro/rocephin/prednisone. Status: Acute (3) COPD exacerbation: Problem comment: duonebs, budesonide nebs, oral prednisone, RT consult. pulmonary rehab acutely and circulation librarian likely needed. Status: Acute (4) Hyponatremia: Problem comment: -normal saline. 2 gram sodium restriciton. trend and follow. likely from SIADH from acute illness. Status: Acute (5) Elevated INR: Problem comment: curious ... aberrant lab report? follow this. no bleeding, no known po anticoagulant. normal INR earlier this year. Status: Acute (6) Elevated C-reactive protein (CRP): Status: Acute (7) Hypertension: Status: Acute (8) Type 2 diabetes mellitus: Problem comment: SSI, accuchecks. follow. holding metformin. Status: Acute (9) Chronic anxiety: Status: Acute (10) Mild CAD: Problem comment: mild ischemia in the apical anterior wall and apex - stress myoview in june 2017. smoked until 2019. -consider echo and will follow trops; baseline BNP was 331 in 2018 Status: Acute
[2021-12-04] MEDS: 0.9 % SODIUM CH + KCL 20 mEq/L 1,000 ML 125 ML IV (18:51)
[2021-12-04] MEDS: ENOXAPARIN 40 MG/0.4 ML INJ SUBCUT (21:50)
[2021-12-04] MEDS: ATORVASTATIN CALCIUM 40 MG TABLET PO (21:50)
[2021-12-04] MEDS: guaiFENesin 100 MG/ML CUP PO (21:51)
[2021-12-04] MEDS: BUDESONIDE 0.5 MG/2ML NEB NEB (21:51)
[2021-12-04] MEDS: ACETAMINOPHEN 325 MG TABLET PO (21:52)
--- NOTE | 2021-12-04 23:53 | PC.NURSE ---
Patient anxious upon arrival to the floor. Order received for Ativan. 1mg was given with some relief. Patient is tachypneic with respirations around 28/minute. PRN duoneb given. Remains on 2-3L of oxygen per NC. Toradol given for left ear pain that is sharp in nature. after receiving ativan/toradol patient denies any ear pain and is able to rest in bed. Pt demonstrates a persistent non-productive cough. Cough medicine given with little relief. Pt up to the BR with SBA and voiding light viola urine.
[2021-12-05] VITALS (10 sets, daily range): BP systolic 140–163; BP diastolic 66–107; PULSE 87–107; RESP 24–28; TEMP 36.1–36.9; O2SAT 92–97
[2021-12-05] MEDS: 0.9 % SODIUM CH + KCL 20 mEq/L 1,000 ML 125 ML IV (02:04)
[2021-12-05] MEDS: guaiFENesin 100 MG/ML CUP PO ×3 (02:09→23:57)
[2021-12-05] MEDS: KETOROLAC 30 MG/ML inj IVP ×3 (05:12→17:29)
[2021-12-05] MEDS: IPRAT-ALBUT 0.5-2.5 MG/3 ML NEB 1 NEB IH ×4 (06:43→20:57)
--- NOTE | 2021-12-05 06:47 | PC.NURSE ---
Shift note: The pt has been on 2L of oxygen via NC with spo2 in the 90s throughout the night. The pt has been coughing throughout the night intermittently ( dry cough); cough med was given time two with some improvement. No fever noted. Short of breath with exertion. Tele has been showing NSR. The pt was c/o chest discomfort when coughing; Toradol was given with some relief. The reported wheezy this AM; Patricia neb given; . The pt has been seeping most of the night per her report.
[2021-12-05 07:50] LABS: HCO3 VBG 27 mmol/L (21-28); Ionized Calcium* 1.16 mmol/L (1.11-1.30); PCO2 VBG 54 mmHG (40-50); PO2 VBG 23.5 mmHG (25-47); pH VBG 7.313 (7.32-7.43)
[2021-12-05 08:01] LABS: Hematocrit 33.2 % (33.0-51.0); Hemoglobin* 10.8 gm/dL (12.0-16.0); Mean Corpuscular HGB Conc 33 gm/dL (32-36); Mean Corpuscular Hemoglobin 30 pg (26-34); Mean Corpuscular Volume 92 fL (80-100); Platelet Count* 211 K/uL (140-440); Red Blood Count 3.63 m/uL (4.00-5.20); White Blood Count* 7.59 K/uL (4.50-11.00)
[2021-12-05 08:02] LABS: Slide Review Reflex No
[2021-12-05 08:19] LABS: Chloride* 100 mmol/L (96-114); Potassium* 5.1 mmol/L (3.6-5.1); Sodium* 134 mmol/L (135-149)
[2021-12-05 08:22] LABS: Creatinine* 0.6 mg/dL (0.5-1.5); Est. Creatinine Clearance* 41.97; Estimated Glomerular Filt Rate 94 ml/min
[2021-12-05 08:23] LABS: Blood Urea Nitrogen* 17 mg/dL (7-30); Calcium* 8.6 mg/dL (8.4-10.6); Carbon Dioxide* 25 mmol/L (20-32); Glucose* 211 mg/dL (60-115); Magnesium* 1.9 mg/dL (1.5-2.6)
[2021-12-05 08:32] LABS: NT Pro B Type NatriureticPept* 4920 PG/mL (0-450)
[2021-12-05 08:35] LABS: Troponin I* 0.01 ng/mL (0.01-0.04)
[2021-12-05 08:36] LABS: INR 1.18 (0.91-1.10); Prothrombin Time 15.7 Seconds
[2021-12-05 08:40] LABS: C Reactive Protein* 20.4 mg/dL (0.5-1.0); Procalcitonin* 0.37 ng/mL (<0.50)
[2021-12-05 08:41] LABS: Hemoglobin A1C* 7.67 % (0-5.6)
[2021-12-05] MEDS: predniSONE 20 MG TABLET 40 MG PO (08:41)
[2021-12-05] MEDS: SERTRALINE 50 MG TABLET PO (08:41)
[2021-12-05] MEDS: BUDESONIDE 0.5 MG/2ML NEB NEB ×2 (08:41→20:58)
[2021-12-05] MEDS: BENZOCAINE/MENTHOL 1 EACH LOZENGE MUCOUS MEM ×2 (08:42→11:22)
[2021-12-05] MEDS: AZITHROMYCIN 250 MG TABLET PO (08:42)
[2021-12-05] MEDS: cefTRIAXone 1 GM in 0.9 % SODIUM CHLORIDE Mini-bag 100 ML IVPB (08:42)
[2021-12-05] MEDS: buPROPion HCL SR 150 MG TAB PO (08:43)
[2021-12-05 08:53] LABS: Thyroid Stimulating Hormone* 0.295 uIU/mL (0.270-4.20)
[2021-12-05] MEDS: SODIUM CHLORIDE 0.9 % (FLUSH) 10 ML SYRINGE 5 ML IVF ×4 (10:45→17:30)
--- NOTE | 2021-12-05 12:01 | PM.IMPN1 ---
Progress Note: A&P Assessment and plan (1) Acute respiratory failure with hypoxia: Problem details: Appears to be a combination of a respiratory infection with COPD exacerbation. Continue azithromycin, ceftriaxone for community-acquired pneumonia. Continue prednisone and bronchodilators for COPD. Status: Acute (2) Bilateral pneumonia: Problem details: Community-acquired pneumonia treatment. Recommend to the family and the patient that we treat this as community-acquired pneumonia and if she does not get better investigate less common environmental exposures. In the meantime family can have the home inspected for mold. Status: Acute (3) COPD exacerbation: Problem details: duonebs, budesonide nebs, oral prednisone, RT consult. Status: Acute (4) Hyponatremia: Problem details: Improved. Discontinue IV fluids. Fluid restriction. Monitor Status: Acute (5) Elevated INR: Problem details: Suspect lab error. Status: Acute (6) Elevated C-reactive protein (CRP): Problem details: Probably due to pneumonia Status: Acute (7) Hypertension: Problem details: Monitor Status: Acute (8) Type 2 diabetes mellitus: Problem details: Elevated blood sugars likely due to steroids and illness. Resume metformin if she can eat normally Status: Acute (9) Chronic anxiety: Problem details: Supportive care Status: Acute (10) Mild CAD: Problem details: mild ischemia in the apical anterior wall and apex - stress myoview in june 2017. smoked until 2019. -consider echo and will follow trops; baseline BNP was 331 in 2018 Status: Acute (11) Anemia: Problem details: Monitor. May need outpatient evaluation. Status: Acute Plan Transfer to [facility] floor care. Continue current medications continue and current monitoring of vital signs, blood sugars. Time Spent With Patient Total time spent: Total time spent today is 45 minutes, 30 minutes in coordination of care discussed with patient and family management of community-acquired pneumonia, COPD and ongoing evaluation of complicated and less common respiratory infections Subjective Date Seen: 12/05/21 Interval history: 76-year-old female admitted to the hospital with 5 days of illness. He began is a severe sore throat then developed cough and shortness of breath. She has had chest pain with coughing but not otherwise. No fever. No abdominal pain nausea vomiting. Prior to this she was well. She does have known COPD and has been using her bronchodilators with some benefit. She does have a history of a respiratory infection about this time last year. She and her family are concerned it has got to do with mold in her building or possibly problems with her heating system. Family members report they have immediate trouble breathing when they walk into her building. 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 I did indicate to her and her daughter that it was unlikely that the water inside the boiler was a source of infection for her but it might be of benefit to inspect the house for mold. Exam Narrative: Exam Narrative: She is alert and appears in no distress. She is breathing comfortably on 1 L per nasal cannula. Oropharynx is normal. Neck is without jugular venous distension. Respirations with diminished breath sounds. Minimal wheezing. Occasional bibasilar crackle. Cardiovascular: S1, S2, regular rate and rhythm. Abdomen is soft without tenderness or mass. Extremities without edema. Intact pedal pulses. Const: Vital Signs, click to edit/add: Vital Signs - 24 hr 12/04/21 12:21 12/04/21 12:31 12/04/21 12:50 Temperature 98.6 F Pulse Rate Pulse Rate [Pulse Oximeter] 112 H Respiratory Rate 16 14 Blood Pressure [Le ft Arm] Blood Pressure [Ri ght Upper Arm] 162/77 H Pulse Oximetry 90 84 L 88 Oxygen Delivery Me thod Room Air Room Air Nasal Cannula Oxygen Flow Rate 3 12/04/21 13:18 12/04/21 13:30 12/04/21 14:00 Temperature Pulse Rate Pulse Rate [Pulse Oximeter] 98 91 92 Respiratory Rate 31 H 33 H 24 Blood Pressure [Le ft Arm] Blood Pressure [Ri ght Upper Arm] 120/67 124/65 148/70 H Pulse Oximetry 88 97 99 Oxygen Delivery Me thod Nasal Cannula Nasal Cannula Nasal Cannula Oxygen Flow Rate 3 3 3 12/04/21 14:33 12/04/21 15:00 12/04/21 17:16 Temperature 98 F Pulse Rate Pulse Rate [Pulse Oximeter] 98 107 H Respiratory Rate 20 20 Blood Pressure [Le ft Arm] Blood Pressure [Ri ght Upper Arm] 139/75 131/78 Pulse Oximetry 96 94 Oxygen Delivery Me thod Nasal Cannula Nasal Cannula Oxygen Flow Rate 3 3 12/04/21 15:30 12/04/21 16:00 12/04/21 16:30 Temperature Pulse Rate Pulse Rate [Pulse Oximeter] 101 H 110 H 110 H Respiratory Rate 20 17 20 Blood Pressure [Le ft Arm] Blood Pressure [Ri ght Upper Arm] 138/59 L 152/80 H 139/92 H Pulse Oximetry 97 98 95 Oxygen Delivery Me thod Nasal Cannula Nasal Cannula Nasal Cannula Oxygen Flow Rate 3 3 3 12/04/21 19:50 12/04/21 19:58 12/04/21 21:34 Temperature 99 F Pulse Rate Pulse Rate [Pulse Oximeter] Respiratory Rate 20 28 H Blood Pressure [Le ft Arm] 142/77 H Blood Pressure [Ri ght Upper Arm] Pulse Oximetry 95 93 Oxygen Delivery Me thod Nasal Cannula Oxygen Flow Rate 3 12/04/21 21:34 12/04/21 23:44 12/04/21 23:51 Temperature Pulse Rate Pulse Rate [Pulse Oximeter] Respiratory Rate 28 H 28 H Blood Pressure [Le ft Arm] Blood Pressure [Ri ght Upper Arm] Pulse Oximetry 93 94 94 Oxygen Delivery Me thod Nasal Cannula Nasal Cannula Oxygen Flow Rate 3 2 12/04/21 23:45 12/04/21 23:45 12/05/21 01:10 Temperature 98.1 F Pulse Rate 87 Pulse Rate [Pulse Oximeter] Respiratory Rate 24 24 Blood Pressure [Le ft Arm] 136/66 Blood Pressure [Ri ght Upper Arm] Pulse Oximetry 95 Oxygen Delivery Me thod Nasal Cannula Oxygen Flow Rate 2 12/05/21 03:00 12/05/21 03:00 12/05/21 07:00 Temperature 97.9 F 97.1 F L Pulse Rate Pulse Rate [Pulse Oximeter] 95 Respiratory Rate 24 24 28 H Blood Pressure [Le ft Arm] 140/66 H 150/97 H Blood Pressure [Ri ght Upper Arm] Pulse Oximetry 92 96 Oxygen Delivery Me thod Nasal Cannula Nasal Cannula Oxygen Flow Rate 2 1 12/05/21 07:00 12/05/21 10:00 12/05/21 10:50 Temperature Pulse Rate 91 91 Pulse Rate [Pulse Oximeter] 95 Respiratory Rate 28 H Blood Pressure [Le ft Arm] Blood Pressure [Ri ght Upper Arm] Pulse Oximetry Oxygen Delivery Me thod Oxygen Flow Rate 12/05/21 11:00 Temperature 97.3 F L Pulse Rate Pulse Rate [Pulse Oximeter] 103 H Respiratory Rate 28 H Blood Pressure [Le ft Arm] 141/107 H Blood Pressure [Ri ght Upper Arm] Pulse Oximetry 93 Oxygen Delivery Me thod Room Air Oxygen Flow Rate Labs Labs: Laboratory Results - last 24 hr 12/04/21 12/04/21 12/04/21 12:35 13:00 13:00 WBC 7.12 RBC 3.69 L Hgb 10.9 L Hct 33.3 MCV 90 MCH 30 MCHC 33 RDW Coeff of Blank 13.0 Plt Count 189 Neut % (Auto) 69.4 Lymph % (Auto) 13.3 L [place] % (Auto) 16.7 H Eos % (Auto) 0.4 Baso % (Auto) 0.1 Neut # (Auto) 4.93 Lymph # (Auto) 0.90 [place] # (Auto) 1.20 H Eos # (Auto) 0.03 Baso # (Auto) 0.01 Abs Immat Gran (auto) 0.01 INR APTT D-Dimer Quant (PE/DVT) 0.97 H ABG pH ABG pCO2 ABG pO2 ABG HCO3 ABG Total CO2 ABG O2 Saturation ABG Base Excess VBG pH VBG pCO2 VBG pO2 VBG HCO3 Sodium Potassium Chloride Carbon Dioxide BUN Creatinine Estimated Creat Clear Estimated GFR Glucose Hemoglobin A1c Lactate Calcium Ionized Calcium You Magnesium Total Bilirubin Direct Bilirubin AST ALT Alkaline Phosphatase Troponin I C-Reactive Protein NT-Pro-B Natriuret Pep Total Protein Albumin Procalcitonin TSH Ethyl Alcohol SARS-CoV-2 (PCR) Negative SARS-CoV-2 Influenza Type A (PCR) Negative PCR FLU A Influenza Type B (PCR) Negative PCR FLU B RSV (PCR) Negative PCR RSV POC Troponin I 12/04/21 12/04/21 12/04/21 13:00 13:00 13:00 WBC RBC Hgb Hct MCV MCH MCHC RDW Coeff of Blank Plt Count Neut % (Auto) Lymph % (Auto) [place] % (Auto) Eos % (Auto) Baso % (Auto) Neut # (Auto) Lymph # (Auto) [place] # (Auto) Eos # (Auto) Baso # (Auto) Abs Immat Gran (auto) INR 3.43 H APTT 49 H D-Dimer Quant (PE/DVT) ABG pH ABG pCO2 ABG pO2 ABG HCO3 ABG Total CO2 ABG O2 Saturation ABG Base Excess VBG pH VBG pCO2 VBG pO2 VBG HCO3 Sodium 129 L Potassium 3.9 Chloride 94 L Carbon Dioxide 28 BUN 15 Creatinine 0.6 Estimated Creat Clear 41.97 Estimated GFR 94 Glucose 194 H Hemoglobin A1c Lactate Calcium 7.7 L Ionized Calcium You Magnesium Total Bilirubin Direct Bilirubin AST ALT Alkaline Phosphatase Troponin I C-Reactive Protein 17.2 H NT-Pro-B Natriuret Pep 1410 H Total Protein Albumin Procalcitonin TSH Ethyl Alcohol SARS-CoV-2 (PCR) Influenza Type A (PCR) Influenza Type B (PCR) RSV (PCR) POC Troponin I 12/04/21 12/04/21 12/04/21 13:00 13:00 13:10 WBC RBC Hgb Hct MCV MCH MCHC RDW Coeff of Blank Plt Count Neut % (Auto) Lymph % (Auto) [place] % (Auto) Eos % (Auto) Baso % (Auto) Neut # (Auto) Lymph # (Auto) [place] # (Auto) Eos # (Auto) Baso # (Auto) Abs Immat Gran (auto) INR APTT D-Dimer Quant (PE/DVT) ABG pH 7.47 H ABG pCO2 38 ABG pO2 75.6 L ABG HCO3 28 ABG Total CO2 25 ABG O2 Saturation 97 ABG Base Excess 3.7 H VBG pH VBG pCO2 VBG pO2 VBG HCO3 Sodium Potassium Chloride Carbon Dioxide BUN Creatinine Estimated Creat Clear Estimated GFR Glucose Hemoglobin A1c Lactate 1.4 Calcium Ionized Calcium You Magnesium Total Bilirubin Direct Bilirubin AST ALT Alkaline Phosphatase Troponin I C-Reactive Protein NT-Pro-B Natriuret Pep Total Protein Albumin Procalcitonin TSH Ethyl Alcohol SARS-CoV-2 (PCR) Influenza Type A (PCR) Influenza Type B (PCR) RSV (PCR) POC Troponin I 0.04 12/04/21 12/04/21 12/04/21 14:35 14:39 16:02 WBC RBC Hgb Hct MCV MCH MCHC RDW Coeff of Blank Plt Count Neut % (Auto) Lymph % (Auto) [place] % (Auto) Eos % (Auto) Baso % (Auto) Neut # (Auto) Lymph # (Auto) [place] # (Auto) Eos # (Auto) Baso # (Auto) Abs Immat Gran (auto) INR APTT D-Dimer Quant (PE/DVT) ABG pH ABG pCO2 ABG pO2 ABG HCO3 ABG Total CO2 ABG O2 Saturation ABG Base Excess VBG pH VBG pCO2 VBG pO2 VBG HCO3 Sodium Potassium Chloride Carbon Dioxide BUN Creatinine Estimated Creat Clear Estimated GFR Glucose Hemoglobin A1c Lactate Calcium Ionized Calcium You Magnesium Total Bilirubin 0.5 Direct Bilirubin 0.2 AST 44 H ALT 26 Alkaline Phosphatase 72 Troponin I C-Reactive Protein NT-Pro-B Natriuret Pep Total Protein 6.4 Albumin 3.7 Procalcitonin 0.32 TSH Ethyl Alcohol < 0.01 L SARS-CoV-2 (PCR) Influenza Type A (PCR) Influenza Type B (PCR) RSV (PCR) POC Troponin I 0.02 12/05/21 12/05/21 12/05/21 07:02 07:02 07:02 WBC 7.59 RBC 3.63 L Hgb 10.8 L Hct 33.2 MCV 92 MCH 30 MCHC 33 RDW Coeff of Blank Plt Count 211 Neut % (Auto) Lymph % (Auto) [place] % (Auto) Eos % (Auto) Baso % (Auto) Neut # (Auto) Lymph # (Auto) [place] # (Auto) Eos # (Auto) Baso # (Auto) Abs Immat Gran (auto) INR 1.18 H APTT D-Dimer Quant (PE/DVT) ABG pH ABG pCO2 ABG pO2 ABG HCO3 ABG Total CO2 ABG O2 Saturation ABG Base Excess VBG pH VBG pCO2 VBG pO2 VBG HCO3 Sodium 134 L Potassium 5.1 Chloride 100 Carbon Dioxide 25 BUN 17 Creatinine 0.6 Estimated Creat Clear 41.97 Estimated GFR 94 Glucose 211 H Hemoglobin A1c Lactate Calcium 8.6 Ionized Calcium You Magnesium 1.9 Total Bilirubin Direct Bilirubin AST ALT Alkaline Phosphatase Troponin I 0.01 C-Reactive Protein 20.4 H NT-Pro-B Natriuret Pep 4920 H Total Protein Albumin Procalcitonin 0.37 TSH Ethyl Alcohol SARS-CoV-2 (PCR) Influenza Type A (PCR) Influenza Type B (PCR) RSV (PCR) POC Troponin I 12/05/21 12/05/21 12/05/21 07:02 07:02 07:02 WBC RBC Hgb Hct MCV MCH MCHC RDW Coeff of Blank Plt Count Neut % (Auto) Lymph % (Auto) [place] % (Auto) Eos % (Auto) Baso % (Auto) Neut # (Auto) Lymph # (Auto) [place] # (Auto) Eos # (Auto) Baso # (Auto) Abs Immat Gran (auto) INR APTT D-Dimer Quant (PE/DVT) ABG pH ABG pCO2 ABG pO2 ABG HCO3 ABG Total CO2 ABG O2 Saturation ABG Base Excess VBG pH 7.313 L VBG pCO2 54 H VBG pO2 23.5 L VBG HCO3 27 Sodium Potassium Chloride Carbon Dioxide BUN Creatinine Estimated Creat Clear Estimated GFR Glucose Hemoglobin A1c 7.67 H Lactate Calcium Ionized Calcium You 1.16 Magnesium Total Bilirubin Direct Bilirubin AST ALT Alkaline Phosphatase Troponin I C-Reactive Protein NT-Pro-B Natriuret Pep Total Protein Albumin Procalcitonin TSH 0.295 Ethyl Alcohol SARS-CoV-2 (PCR) Influenza Type A (PCR) Influenza Type B (PCR) RSV (PCR) POC Troponin I
[2021-12-05] MEDS: METFORMIN ER 500 MG PO (12:50)
[2021-12-05] MEDS: LORazepam 2 MG/ML inj IVP (15:34)
--- NOTE | 2021-12-05 15:47 | RESP.RT ---
PT seen this AM. On RA, SPO2 93% BBS decreased with light Crackles. Continue wih bronchodilator therapy. Ambulation as much as she tolerates, sitting in chair.
--- NOTE | 2021-12-05 18:02 | PC.NURSE ---
End of shift-- Pleasant and cooperative, alert and oriented patient. VSS, though mildly hypertensive with B/Ps 150s/80s and tachycardic with heart rate low 100s, and pt is afebrile. SPO2 maintained >90% on 1L per n.c. Attempted to remove O2, but pt's O2 sats quickly dropped to 85% on RA and O2 was reapplied. She c/o some mild pain in her chest with coughing only that she rated as high as 5 out of 10 and appears well managed with Toradol q6h. LS coarse with occasional inspiratory rhonchi and expiratory wheezes that improve following a neb. She continues to have a frequent, minimally productive cough. She denied nausea and ate 75-100% of 3 meals today. Blood sugars 211, 274 and 324 and pt was given insulin per sliding scale. Telemetry shows NSR to sinus tachycardia. She was up to the BR and chair with SBA and tolerated it well, though she c/o some dizziness while walking with OT. Report to oncoming shift.
[2021-12-05] MEDS: ATORVASTATIN CALCIUM 40 MG TABLET PO (20:57)
[2021-12-05] MEDS: ENOXAPARIN 40 MG/0.4 ML INJ SUBCUT (20:58)
[2021-12-05] MEDS: CYCLOBENZAPRINE HCL 10 MG TABLET PO (23:58)
[2021-12-06] VITALS (7 sets, daily range): BP systolic 122–160; BP diastolic 68–95; PULSE 79–101; RESP 18–24; TEMP 36.3–36.8; O2SAT 90–98
[2021-12-06 06:35] LABS: Hematocrit 32.1 % (33.0-51.0); Hemoglobin* 10.3 gm/dL (12.0-16.0); Mean Corpuscular HGB Conc 32 gm/dL (32-36); Mean Corpuscular Hemoglobin 29 pg (26-34); Mean Corpuscular Volume 92 fL (80-100); Platelet Count* 227 K/uL (140-440); White Blood Count* 8.49 K/uL (4.50-11.00)
[2021-12-06] MEDS: guaiFENesin 100 MG/ML CUP PO ×2 (06:35→21:44)
[2021-12-06 06:39] LABS: Slide Review Reflex No
[2021-12-06 06:41] LABS: HCO3 VBG 29 mmol/L (21-28); PCO2 VBG 55 mmHG (40-50); pH VBG 7.333 (7.32-7.43)
[2021-12-06] MEDS: KETOROLAC 30 MG/ML inj IVP ×2 (06:41→14:19)
--- NOTE | 2021-12-06 06:48 | PC.NURSE ---
Shift note: The pt has been coughing, dry cough throughout the shift intermittently; cough med was given x2; with some improvement. The pt has been on 1L of oxygen via NC with Spo2 in the 90s; spo2 decreased in to mid 80s with exertion while on 1 L of oxygen ; and recovered very fast. C/o of chest discomfort when coughing; Toradol given a little while ago ; the Am nurse to reassess the effect of the medicine. Tele has been showing NS
[2021-12-06 06:52] LABS: PO2 VBG < 20.0 mmHG (25-47)
[2021-12-06 06:58] LABS: Chloride* 101 mmol/L (96-114); Potassium* 4.3 mmol/L (3.6-5.1); Sodium* 135 mmol/L (135-149)
[2021-12-06 07:01] LABS: Carbon Dioxide* 29 mmol/L (20-32); Creatinine* 0.8 mg/dL (0.5-1.5); Est. Creatinine Clearance* 41.97; Estimated Glomerular Filt Rate 77 ml/min
[2021-12-06 07:02] LABS: Blood Urea Nitrogen* 26 mg/dL (7-30); Calcium* 8.9 mg/dL (8.4-10.6); Glucose* 188 mg/dL (60-115); Magnesium* 2.1 mg/dL (1.5-2.6)
[2021-12-06 07:21] LABS: C Reactive Protein* 14.1 mg/dL (0.5-1.0)
[2021-12-06 07:45] LABS: INR 1.15 (0.91-1.10); Prothrombin Time 15.4 Seconds
[2021-12-06 08:11] LABS: NT Pro B Type NatriureticPept* 6900 PG/mL (0-450)
[2021-12-06 08:14] LABS: Troponin I* 0.02 ng/mL (0.01-0.04)
[2021-12-06] MEDS: predniSONE 20 MG TABLET 40 MG PO (09:14)
[2021-12-06] MEDS: METFORMIN ER 500 MG PO (09:15)
[2021-12-06] MEDS: cefTRIAXone 1 GM in 0.9 % SODIUM CHLORIDE Mini-bag 100 ML IVPB (09:15)
[2021-12-06] MEDS: BUDESONIDE 0.5 MG/2ML NEB NEB ×2 (09:15→21:07)
[2021-12-06] MEDS: IPRAT-ALBUT 0.5-2.5 MG/3 ML NEB 1 NEB IH ×4 (09:15→21:10)
[2021-12-06] MEDS: SERTRALINE 50 MG TABLET PO (09:15)
[2021-12-06] MEDS: AZITHROMYCIN 250 MG TABLET PO (09:15)
[2021-12-06] MEDS: buPROPion HCL SR 150 MG TAB PO (09:20)
--- NOTE | 2021-12-06 11:21 | P.IMPN_ITS ---
Progress Note: A&P Assessment and plan (1) Acute respiratory failure with hypoxia: Problem details: Appears to be a combination of a respiratory infection with COPD exacerbation. Continue azithromycin, ceftriaxone for community-acquired pneumonia. Continue prednisone and bronchodilators for COPD. Continue in hospital for 1 more day due to ongoing need for supplemental oxygen Status: Acute (2) Bilateral pneumonia: Problem details: Community-acquired pneumonia treatment. Recommend to the family and the patient that we treat this as community-acquired pneumonia and if she does not get [place] r investigate less common environmental exposures. Daughter reports the home was inspected yesterday and no concern for malfunctioning of the heating system or significant mold was identified. Status: Acute (3) COPD exacerbation: Problem details: duonebs, budesonide nebs, oral prednisone, RT consult. Status: Acute (4) Hyponatremia: Problem details: Improved. Unrestricted diet and monitor Status: Acute (5) Elevated INR: Problem details: Suspect lab error. Status: Acute (6) Elevated C-reactive protein (CRP): Problem details: Probably due to pneumonia Status: Acute (7) Hypertension: Problem details: Some blood pressure elevation. Monitor. Status: Acute (8) Type 2 diabetes mellitus: Problem details: Elevated blood sugars likely due to steroids and illness. Resume metformin if she can eat normally Status: Acute (9) Chronic anxiety: Problem details: Supportive care. Possibly worse because of prednisone but better today probably because her breathing is better Status: Acute (10) Mild CAD: Problem details: mild ischemia in the apical anterior wall and apex - stress myoview in june 2017. smoked until 2019. -consider echo and will follow trops; baseline BNP was 331 in 2018 Status: Acute (11) Anemia: Problem details: Monitor. May need outpatient evaluation. Status: Acute Plan Continue in hospital for another day. Think she can be safely discharged to home when her O2 sats at rest are above 90% and when her O2 sats with activity which drop into the 80s recover quickly. Time Spent With Patient Total time spent: Total time spent today is 45 minutes, 30 minutes in coordination of care discussing with patient and her daughter and other providers ongoing management of pneumonia, COPD, environmental irritants and allergies and hyponatremia Subjective Date Seen: 12/06/21 Interval history: 76-year-old female seen in followup of pneumonia and COPD exacerbation. Patient reports today feeling a little bit better. Her energy is a little better her anxiety is a little better. Still coughing quite a bit. Her hoarseness is better. She has not had any fever. Exam Narrative: Exam Narrative: She is alert and appears in no distress. Less anxious today. Breathing is unlabored. Eyes normal. Oropharynx normal. Neck is supple out mass or adenopathy. Respirations are notable for mild diffuse expiratory wheezing. He has a few basilar crackles still present. Cardiovascular: S1, S2, regular rate and rhythm. Occasional premature beats. Abdomen is soft without tenderness or mass. Extremities with trace edema bilaterally. Const: Vital Signs, click to edit/add: Vital Signs - 24 hr 12/05/21 15:00 12/05/21 15:00 12/05/21 15:00 Temperature 97.6 F Pulse Rate 97 Pulse Rate [Pulse Oximeter] 99 99 Respiratory Rate 24 24 Blood Pressure [Le ft Arm] 158/81 H Pulse Oximetry 94 Oxygen Delivery Me thod Nasal Cannula Oxygen Flow Rate 1 12/05/21 19:24 12/05/21 19:29 12/05/21 23:44 Temperature 98.5 F 98.5 F Pulse Rate Pulse Rate [Pulse Oximeter] 107 H 95 Respiratory Rate 24 24 Blood Pressure [Le ft Arm] 163/85 H Pulse Oximetry 93 Oxygen Delivery Me thod Nasal Cannula Oxygen Flow Rate 1 12/05/21 23:44 12/05/21 23:44 12/06/21 03:30 Temperature 97 F L Pulse Rate 79 Pulse Rate [Pulse Oximeter] 95 Respiratory Rate 24 Blood Pressure [Le ft Arm] 142/97 H Pulse Oximetry 97 97 Oxygen Delivery Me thod Nasal Cannula Oxygen Flow Rate 1 12/06/21 03:00 Temperature 97.3 F L Pulse Rate Pulse Rate [Pulse Oximeter] 81 Respiratory Rate 24 Blood Pressure [Le ft Arm] 130/81 Pulse Oximetry 98 Oxygen Delivery Me thod Nasal Cannula Oxygen Flow Rate 1 Documenting provider has reviewed patient's vital signs: yes Labs Labs: Laboratory Results - last 24 hr 12/06/21 12/06/21 12/06/21 06:15 06:15 06:15 WBC 8.49 RBC 3.50 L Hgb 10.3 L Hct 32.1 L MCV 92 MCH 29 MCHC 32 Plt Count 227 INR 1.15 H VBG pH VBG pCO2 VBG pO2 VBG HCO3 Sodium 135 Potassium 4.3 Chloride 101 Carbon Dioxide 29 BUN 26 Creatinine 0.8 Estimated Creat Clear 41.97 Estimated GFR 77 Glucose 188 H Calcium 8.9 Magnesium 2.1 Troponin I 0.02 C-Reactive Protein 14.1 H NT-Pro-B Natriuret Pep 6900 H Procalcitonin 0.30 12/06/21 06:15 WBC RBC Hgb Hct MCV MCH MCHC Plt Count INR VBG pH 7.333 VBG pCO2 55 H VBG pO2 < 20.0 L VBG HCO3 29 H Sodium Potassium Chloride Carbon Dioxide BUN Creatinine Estimated Creat Clear Estimated GFR Glucose Calcium Magnesium Troponin I C-Reactive Protein NT-Pro-B Natriuret Pep Procalcitonin
[2021-12-06] MEDS: BENZOCAINE/MENTHOL 1 EACH LOZENGE MUCOUS MEM (11:23)
[2021-12-06 15:22] LABS: Strep pneumoniae Ag, Urine Negative (Negative)
[2021-12-06] MEDS: DOCUSATE SODIUM 100 MG CAPSULE PO (16:32)
--- NOTE | 2021-12-06 17:53 | PC.NURSE ---
Addendum entered by Bre Real RN 12/06/21 18:29: OFF O2 AT 1815, PATIENT NERVOUS BUT WILLING TO TRY FOR A BIT, REASSURED PATIENT THAT I CAN SEE HER SATURATIONS WHILE IN THE HALLWAY AND EXPRESSED FOR PATIENT TO LET ME KNOW IF SHE STARTED FEELING MORE SOB. PATIENT VERBALIZED UNDERSTANDING, AT THIS TIME O2 95%. Original Note: PATIENT PLEASANT AND COOPERATIVE, ALERT AND ORIENTED, DAUGHTER AT BEDSIDE THIS MORNING AND SUPPORTIVE, PATIENT IS HOPING TO GO HOME WHEN READY BUT IS ABLE TO STAY AT [facility] PLACE IF NEEDED, OXYGEN FROM 1L TO 0.5L TODAY, PATIENT EXPRESSED FEELING ANXIOUS ABOUT DECREASED OXYGEN, NOTED PATIENT TO BECOME A BIT JITTERY/RESTLESS WHEN DECREASING OZ MENTIONED, PATIENT HAS TOLERATED O2 AT 0.5L, AT THIS TIME HAVE NOT BEEN ABLE TO TRIAL RA R/T TO ANXIETY, PATIENT NEEDS LOTS OF ENCOURAGEMENT AND REASSURANCE, PATIENT ALSO EXPRESSING FEELING SOB SINCE DECREASING O2 ALTHOUGH NO CHANGE IN RR NOTED, PATIENT STATED FEELING WHEEZY/COURSE AFTER NAPPING, PATIENT EDUCATED ON TAKING DEEP BREATHS AND USING THE AEROBKA/IS AFTER A NAP IS HELPFUL TO EXPELL PHLEGM, VERBALIZED UNDERSTANDING, PRN TORADOL GIVEN FOR HEADACHE FROM TMJ WITH RELIEF, NO OTHER PAIN UNLESS COUGHING, PATIENT USING LOZENGES AND COUGH DROPS TO HELP WITH DISCOMFT, TELE NSR/SINUS TACH, LUNG SOUNDS COARSE.
[2021-12-06] MEDS: ENOXAPARIN 40 MG/0.4 ML INJ SUBCUT (21:07)
[2021-12-06] MEDS: SODIUM CHLORIDE 0.9 % (FLUSH) 10 ML SYRINGE 5 ML IVF (21:07)
[2021-12-06] MEDS: ATORVASTATIN CALCIUM 40 MG TABLET PO (21:08)
[2021-12-06] MEDS: CYCLOBENZAPRINE HCL 10 MG TABLET PO (21:17)
[2021-12-07] VITALS (9 sets, daily range): BP systolic 151–170; BP diastolic 77–87; PULSE 82–99; RESP 20–21; TEMP 36.6–37; O2SAT 90–96
[2021-12-07] MEDS: guaiFENesin 100 MG/ML CUP PO ×3 (01:59→13:57)
--- NOTE | 2021-12-07 06:19 | PC.NURSE ---
Shift note: O2 sats 93-97% on 0.5L NC, SOB with exertion, sats dropping to low 80ies, recovers within a minute or two.
[2021-12-07 06:40] LABS: Hematocrit 31.5 % (33.0-51.0); Hemoglobin* 10.3 gm/dL (12.0-16.0); Mean Corpuscular HGB Conc 33 gm/dL (32-36); Mean Corpuscular Hemoglobin 30 pg (26-34); Mean Corpuscular Volume 91 fL (80-100); Platelet Count* 241 K/uL (140-440); Red Blood Count 3.46 m/uL (4.00-5.20); White Blood Count* 9.47 K/uL (4.50-11.00)
[2021-12-07 06:43] LABS: HCO3 VBG 31 mmol/L (21-28); PCO2 VBG 49 mmHG (40-50); PO2 VBG 34.4 mmHG (25-47); pH VBG 7.404 (7.32-7.43)
[2021-12-07 06:56] LABS: Slide Review Reflex No
[2021-12-07 07:21] LABS: Prothrombin Time 14.9 Seconds
[2021-12-07 07:43] LABS: C Reactive Protein* 5.9 mg/dL (0.5-1.0)
[2021-12-07 07:51] LABS: Troponin I* 0.01 ng/mL (0.01-0.04)
[2021-12-07] MEDS: METFORMIN ER 500 MG PO (08:33)
[2021-12-07] MEDS: predniSONE 20 MG TABLET 40 MG PO (08:34)
[2021-12-07] MEDS: SERTRALINE 50 MG TABLET PO (08:34)
[2021-12-07] MEDS: AZITHROMYCIN 250 MG TABLET PO (08:34)
[2021-12-07] MEDS: IPRAT-ALBUT 0.5-2.5 MG/3 ML NEB 1 NEB IH ×2 (08:35→13:58)
[2021-12-07] MEDS: cefTRIAXone 1 GM in 0.9 % SODIUM CHLORIDE Mini-bag 100 ML IVPB (08:35)
[2021-12-07] MEDS: KETOROLAC 30 MG/ML inj IVP (08:35)
[2021-12-07] MEDS: buPROPion HCL SR 150 MG TAB PO (08:37)
[2021-12-07] MEDS: SODIUM CHLORIDE 0.9 % (FLUSH) 10 ML SYRINGE 5 ML IVF (09:11)
--- NOTE | 2021-12-07 09:21 | PM.DS1 ---
DS: Providers Provider Time Seen by Provider: 09:10 Date Seen: 12/07/21 Date of admission: 12/04/21 17:07 Primary care physician: Forrest Wilson MD Admitting Clinician: Alysai Hutchinson MD Consults: 12/04/21 16:55 Consult to Occupational Therapy [CONS] Routine Comment: Reason(s) for OT Consult:: Evaluate and Treat Any Restrictions?:: No Restrictions Consult to Physical Therapy [CONS] Routine Comment: Reason(s) for PT Consult:: Evaluate and Treat Any Restrictions?:: No Restrictions Consult to Respiratory Therapy [CONS] Routine Comment: Reason(s) for RT Consult:: Consult Comment: COPD; multilobar pneumonia. see CT and ABG Consult to [employer] [CONS] Routine Comment: Reason for Consult:: Social Service Consult Attending Physician on discharge: Nuzhat Salgado MD Date of Discharge: 12/07/21 DS: Diagnosis Discharge Diagnosis (1) Acute respiratory failure with hypoxia: Status: Acute Problem details: Appears to be a combination of a respiratory infection with COPD exacerbation. Treated with azithromycin, cephalosporin for community-acquired pneumonia, prednisone and bronchodilators for COPD. (2) Bilateral pneumonia: Status: Acute Problem details: Treated for community-acquired pneumonia. Recommend to the family and the patient that we treat this as community-acquired pneumonia and if she does not get better investigate less common environmental exposures. Daughter reports the home was inspected yesterday and no concern for malfunctioning of the heating system or significant mold was identified. CT chest 12/04/21: Multifocal bilateral nodular ground-glass and tree-in-bud nodular airspace opacities with more conspicuous nodular airspace opacities. Constellation of findings favor multifocal pneumonia. Recommend unenhanced chest CT in 3 months after appropriate medical therapy to document resolution and to assess for underlying malignant potential. Prominent mediastinal and hilar lymph nodes/lymphadenopathy. Recommend attention on follow-up exams. (3) COPD exacerbation: Status: Acute Problem details: Treated with duonebs, budesonide nebs, oral prednisone, azithromycin (also for pneumonia). (4) Hyponatremia: Status: Acute Problem details: Resolved. Unrestricted diet and monitor (5) Elevated C-reactive protein (CRP): Status: Acute Problem details: Probably due to pneumonia; improving (6) Anemia: Status: Acute Problem details: Normocytic. May need outpatient evaluation. (7) Elevated INR: Status: Acute Problem details: Suspect lab error. (8) Mild CAD: Status: Chronic Problem details: mild ischemia in the apical anterior wall and apex - stress myoview in june 2017. smoked until 2019. ECHO as below, EF 55%, serial trops unremarkable; baseline BNP was 331 in 2018, was [id number] in hospital. (9) Echocardiogram abnormal: Status: Acute Problem details: 12/06/21 Mild to moderately increased left ventricular size, normal wall thickness, normal global systolic function with an estimated EF of 55%. Basal inferior segment and basal septum but not well visualized, probably hypokinetic. Moderately enlarged left atrium. Right ventricular cavity size is normal, global systolic RV function is normal. The mitral valve is normal, [id number] mitral regurgitation. Moderate tricuspid regurgitation. The inferior vena cava is dilated, respiratory size variation less than 50%, consistent with elevated right atrial pressure. Compared to prior exam images of 06/03/2017, the left ventricular function has decreased, the LV cavity has dilated, resting tachycardia is new. (10) Chronic anxiety: Status: Chronic Problem details: Possibly worse because of prednisone, improving as breathing improves. (11) Type 2 diabetes mellitus: Status: Chronic Problem details: 12/05/21 HgbA1C 7.6% Elevated blood sugars likely due to steroids and illness. (12) Hypertension: Status: Chronic DS: Summary Hospital Course Hospital Course: This is a 76-year-old female with history of COPD who was brought to the emergency department several times for worsening shortness of breath. Her sats and chest x-ray were unremarkable initially, but the last time she was brought to the emergency department her sats at home were in the 70s and in the high 80s with 2 L of oxygen in the ED. she was feeling weak and anxious and had a nonproductive cough but no fevers. With any activity she was more tachypneic, anxious, and hypoxic with tachycardia. CRP was markedly elevated on most recent presentation to the ED. CT chest showed no evidence of PE, there were multifocal bilateral nodular ground-glass and tree-in-bud nodular airspace opacities with more conspicuous nodular airspace opacities that favor multifocal pneumonia. She was admitted on supplemental oxygen, nebulizers, oral prednisone, azithromycin and ceftriaxone. Metformin was held and she was placed on sliding scale insulin. COVID and influenza tests were negative. While she made improvement day today, she continued to require oxygen at rest and was noted to be hypoxic with activity for several days. Hyponatremia that was present on admission, resolved with a fluid restriction and this was then discontinued. Her CRP improved. Serial troponins were unremarkable. BNP was elevated; an echocardiogram was obtained, the results of which are below. Also note this spurious elevated INR which resolved without intervention and patient is not on anticoagulation; this is thought to be a lab error. Anemia was present on admission, but new from 2 days prior, it is normocytic. Remained stable in the hospital, further follow-up and testing can be considered as an outpatient. She is not requiring oxygen at rest or with activity today and is discharged home in stable condition to finish out a course of oral antibiotics and oral steroid. Follow-up with primary care provider next week as below. Recommend unenhanced chest CT in 3 months after appropriate medical therapy to document resolution and to assess for underlying malignant potential. Prominent mediastinal and hilar lymph nodes/lymphadenopathy. Recommend attention on follow-up exams. Consider outpatient evaluation of normocytic anemia. Time Spent with Patient Time attestation: Total time spent providing and/or coordinating discharge services: Exam Narrative: Exam Narrative: General: No respiratory distress. Anxious, at times tearful about previous fluid restriction. Awake, alert, oriented x3. No pallor. No jaundice. Oropharynx: Clear. Mucous membranes moist. Cardiovascular: Regular rate and rhythm. No murmurs, gallops, or rubs. Respiratory: Mild diffuse expiratory wheezes, fine bibasilar crackles. Abdomen: Bowel sounds present. Soft, nondistended, nontender. Extremities: Trace bilateral pretibial edema. Const: Vital Signs, click to edit/add: Vital Signs - 24 hr 12/06/21 11:00 12/06/21 11:00 12/06/21 15:00 Temperature 97.7 F Pulse Rate 83 Pulse Rate [Pulse Oximeter] 97 Respiratory Rate 20 22 Blood Pressure [Le ft Arm] 158/89 H Pulse Oximetry 96 Oxygen Delivery Me thod Nasal Cannula Oxygen Flow Rate 0.5 12/06/21 15:00 12/06/21 17:22 12/06/21 19:18 Temperature 98.3 F 98.3 F Pulse Rate 101 H Pulse Rate [Pulse Oximeter] 99 93 Respiratory Rate 22 18 Blood Pressure [Le ft Arm] 151/68 H 122/95 H Pulse Oximetry 90 93 Oxygen Delivery Me thod Nasal Cannula Nasal Cannula Oxygen Flow Rate 0.5 0.5 12/07/21 01:00 12/07/21 01:00 12/07/21 03:00 Temperature 98 F Pulse Rate 82 Pulse Rate [Pulse Oximeter] 99 Respiratory Rate 20 Blood Pressure [Le ft Arm] 170/87 H Pulse Oximetry 95 95 Oxygen Delivery Me thod Nasal Cannula Oxygen Flow Rate 0.5 12/07/21 03:44 Temperature Pulse Rate Pulse Rate [Pulse Oximeter] 86 Respiratory Rate 20 Blood Pressure [Le ft Arm] Pulse Oximetry 96 Oxygen Delivery Me thod Nasal Cannula Oxygen Flow Rate 0.5 Documenting provider has reviewed patient's vital signs: yes DS: Data Data Completed and Pending Completed studies during hospitalization: 12/04/2021 1:14 p.m. EKG: Sinus rhythm with occasional premature ventricular complexes. Heart rate 95 beats per minute. Incomplete right bundle-branch block. Left anterior fascicular block. Anterior septal infarct, age undetermined. Ordering Physician: Gurwinder Marion M.D. Date of Service: 12/04/21 Procedure(s): XR chest 2V Accession Number(s): [id number] cc: Forrest Wilson MD; Gurwinder Marion M.D.~ For Patients: As a result of the Cures Act, medical imaging exams and procedure reports are released immediately into your electronic medical record. You may view this report before your referring provider. If you have questions, please contact your health care provider. INDICATION: Shortness of breath, cough. TECHNIQUE: Chest 2 views. COMPARISON: Chest x-ray from 12/02/2021. FINDINGS: Lungs: Coarse interstitial markings suggest chronic changes. No focal consolidation. Pleura: No pleural effusion or pneumothorax. Heart and Mediastinum: Upper normal heart size. Hilar prominence is probably enlarged vasculature. Bones: Unremarkable. IMPRESSION: No acute cardiopulmonary disease. Dictated by Evangelist Torres MD @ 12/04/2021 2:43:37 PM (Electronically Signed) Ordering Physician: Gurwinder Marion M.D. Date of Service: 12/04/21 Procedure(s): CT angio chest PE protocol Accession Number(s): [id number] cc: Forrest Wilson MD; Seper,Gurwinder S M.D.~ For Patients: As a result of the 21st Century Cures Act, medical imaging exams and procedure reports are released immediately into your electronic medical record. You may view this report before your referring provider. If you have questions, please contact your health care provider. INDICATION: Shortness of breath. TECHNIQUE: CT chest PE was acquired with 95 cc Isovue 370 IV contrast. COMPARISON: CT October 2018 FINDINGS: Pulmonary Arteries: No CT evidence of pulmonary thromboembolic disease. No pulmonary hypertension or right ventricular strain. Heart and Mediastinum: Stable bilateral thyroid nodules measuring up to 25 millimeters on the left. No axillary or supraclavicular lymphadenopathy. Prominent soft tissue and mediastinal lymph nodes as well as right hilar lymph node measuring 20 x 22 millimeters, axial image 84. normal heart size. Normal caliber aorta. Lungs and Airways: Multifocal areas of ground-glass airspace opacities and tree-in-bud nodular airspace opacities as well as more conspicuous solid pulmonary nodules measuring up to 7 millimeters, axial image 127. No central intraluminal lesion. Pleura: The pleural spaces are normal. Abdomen: Stable left hepatic lobe cyst. Bones and soft tissues: The skeletal structures and soft tissues of the chest wall are unremarkable. IMPRESSION: 1. No CT evidence of pulmonary thromboembolic disease. 2. Multifocal bilateral nodular ground-glass and tree-in-bud nodular airspace opacities with more conspicuous nodular airspace opacities. Constellation of findings favor multifocal pneumonia. Recommend unenhanced chest CT in 3 months after appropriate medical therapy to document resolution and to assess for underlying malignant potential. 3. Prominent mediastinal and hilar lymph nodes/lymphadenopathy. Recommend attention on follow-up exams. Please note that all CT scans at this facility use dose modulation, iterative reconstruction, and/or weight-based dosing when appropriate to reduce radiation dose to as low as reasonably achievable. Dictated by Enrique Art MD @ 12/04/2021 3:41:14 PM (Electronically Signed) 12/06/21 echocardiogram Mild to moderately increased left ventricular size, normal wall thickness, normal global systolic function with an estimated EF of 55%. Basal inferior segment and basal septum but not well visualized, probably hypokinetic. Moderately enlarged left atrium. Right ventricular cavity size is normal, global systolic RV function is normal. The mitral valve is normal, [id number] mitral regurgitation. Moderate tricuspid regurgitation. The inferior vena cava is dilated, respiratory size variation less than 50%, consistent with elevated right atrial pressure. Compared to prior exam images of 06/03/2017, the left ventricular function has decreased, the LV cavity has dilated, resting tachycardia is new. Labs on day of discharge: Labs from last 24 hours 12/07/21 12/07/21 12/07/21 06:23 06:23 06:23 WBC RBC Hgb Hct MCV MCH MCHC Plt Count INR 1.10 VBG pH 7.404 VBG pCO2 49 VBG pO2 34.4 VBG HCO3 31 H Troponin I 0.01 C-Reactive Protein 5.9 H Ur Strep pneumoniae Ag 12/07/21 12/04/21 06:23 16:10 WBC 9.47 RBC 3.46 L Hgb 10.3 L Hct 31.5 L MCV 91 MCH 30 MCHC 33 Plt Count 241 INR VBG pH VBG pCO2 VBG pO2 VBG HCO3 Troponin I C-Reactive Protein Ur Strep pneumoniae Ag Negative Preliminary micro results at discharge 12/04/21 16:29 Blood Culture - Preliminary Blood NO GROWTH AFTER 48 HOURS 12/04/21 16:24 Blood Culture - Preliminary Blood NO GROWTH AFTER 48 HOURS Discharge Plan Discharge Disposition: Home, Self-Care Date of Admission: 12/04/21 17:07 Attending Provider on Discharge: Nuzhat Salgado Primary Care Provider: Forrest Wilson Condition: Stable Anticipated Discharge Date/Time: 12/07/21 10:29 Discharge Medications: New azithromycin 250 mg Tablet 250 mg PO Q24H Qty: 3 0RF Taper: Z-ASPEN 250 mg Q24H for 4 Days and 0 Hour cefpodoxime 200 mg tablet 200 mg PO BID Qty: 8 0RF Rx Instructions: must administer with a meal/food prednisone 20 mg Tablet 40 mg PO DAILYWM Qty: 6 0RF Continued sertraline 50 mg tablet 50 mg PO DAILY cyclosporine [Restasis] 0.05 % dropperette 1 drp ophthalmic (eye) BID Rx Instructions: BOTH EYES atorvastatin 40 mg tablet 40 mg PO QHS metformin 500 mg tablet extended release 24 hr 500 mg PO DAILY bupropion HCl 150 mg tablet sustained-release 12 hr 150 mg PO DAILY latanoprost 0.005 % drops 1 drp ophthalmic (eye) DAILY cyclobenzaprine 10 mg tablet 10 mg PO DAILY Label Comments: TAKE 1 TABLET (10MG) BY MOUTH AT BEDTIME. ascorbic acid (vitamin C) 500 mg tablet 500 mg PO DAILY cetirizine [All Day Allergy (cetirizine)] 10 mg tablet 10 mg PO DAILY cholecalciferol (vitamin D3) 50 mcg (2,000 unit) capsule 50 mcg PO DAILY multivitamin [Multiple Vitamins] Tablet 1 tab PO DAILY nitroglycerin 0.4 mg tablet, sublingual 0.4 mg sublingual Q5M PRN Rx Instructions: do not exceed 3 doses per episode No Action (DME) lancets [TRUEplus Lancets] 33 gauge misc See Rx Instructions .ROUTE .MEDSUPPLY Qty: 100 Rx Instructions: As directed (DME) Contour Next Test Strips Strip See Rx Instructions .ROUTE .MEDSUPPLY Qty: 10 Rx Instructions: As directed Discharge Orders: Discharge Order (Routine); Ordered 12/07/21 Ordered By: Nuzhat Salgado Patient Education: COPD (Chronic Obstructive Pulmonary Disease) (DC), Bacterial Pneumonia (DC) Activity Level: No Restrictions Activity Detail: Sit for dressing and bathing, pace self with seated rest breaks if short of breath. Use deep breathing techniques and meditation for anxiety. Discharge Diet: Heart Healthy (2 gm sodium, low fat) Follow Up Appointments: Forrest Wilson MD [Primary Care Provider] - (5 days, sodium level) Forms: My[facility] Info Instructions
[2021-12-07] MEDS: BUDESONIDE 0.5 MG/2ML NEB NEB (10:11)
--- NOTE | 2021-12-07 16:15 | PC.NURSE ---
Nursing Care Hours: [id number] Pt this shift anxious and upset in the morning d/t hoarse and painful throat, difficulty talking, and wanting more water but was on fluid restrictions. Therapeutic communication used and fluid order lifted so pt relieved when given ice cold mug of water. PRN therapeutics used for pain and cough, effective. By breakfast, pt stated they felt better and were speaking clearly. Pt independent in room, stable on room air. Bilat IV dc'd, discharge instructions given verbally and via handout. Questions about tapering prednisone and monitoring blood sugar answered. SS of worsening condition discussed. Pt used wheelchair and assisted by daughter.
== END 2021-12-07 14:40 | disposition home or self-care (01) | DRG 193 ==
LOC: ED 15:47 → MEDSURG 16:58
PROVIDERS: Admitting Provider Family Medicine; Emergency Provider Family Medicine; PCP Family Medicine; Visit Provider Family Medicine
DX: J18.9 Pneumonia, unspecified organism (principal); J96.01 Acute respiratory failure with hypoxia; J44.0 Chronic obstructive pulmonary disease with (acute) lower respiratory infection; J44.1 Chronic obstructive pulmonary disease with (acute) exacerbation; E87.1 Hypo-osmolality and hyponatremia; I45.2 Bifascicular block; I10 Essential (primary) hypertension; E11.9 Type 2 diabetes mellitus without complications; D64.9 Anemia, unspecified; I25.10 Atherosclerotic heart disease of native coronary artery without angina pectoris; E78.2 Mixed hyperlipidemia; M81.0 Age-related osteoporosis without current pathological fracture; Z87.891 Personal history of nicotine dependence; I08.1 Rheumatic disorders of both mitral and tricuspid valves; F41.9 Anxiety disorder, unspecified
CPT/HCPCS: 36415; 36600; 71045; 71046; 71260; 80048; 80076; 81001; 82077; 82330; 82803; 82947; 82962; 83036; 83605; 83735; 83880; 84145; 84443; 84484; 85025; 85027; 85379; 85610; 85730; 86140; 87040; 87086; 87502; 87634; 87635; 87651; 87899; 93005; 93306; 93307; 94640; 94664; 94761; 97110; 97161; 97165; 97530; 97535; 99285; G0378; A9270; J0456; J0696; J1100; J1650; J1885; J2060; J2930; J7050; J7120; J7512; J7626; Q9967; S0106

== ENCOUNTER 2022-01-16 09:00 | Outpatient (RCR) | payer MEDICARE, OTHER, SELFPAY | END 2022-08-29 23:59 | disposition home or self-care (01) | PROVIDERS: PCP Family Medicine; Visit Provider Family Medicine | DX: M26.609 Unspecified temporomandibular joint disorder, unspecified side (principal); Z51.89 Encounter for other specified aftercare | CPT/HCPCS: 97110; 97140; 97162; 97535 ==

== ENCOUNTER 2023-06-23 08:30 | Outpatient (CLI) | payer MEDICARE, OTHER, SELFPAY ==
--- OUTSIDE RECORDS SUMMARY | 2023-06-23 08:34 | XMS_ITS | Clinical Summary ---
Author Name Unknown Organization [facility] Address [address] [place] [id number] Care Team Providers Care Retail Account Manager Name Role Phone System, Provider Not In Primary Care Provider Un available Allergies Active Allergy Reactions Criticality Noted Date Comments Codeine Dizziness 03/10/2008 Oxycodone Nausea 10/13/2018 Penicillins 03/24/2006 Other reaction(s): Edema Sulfa Antibiotics Rash Low 03/24/2006 Tramadol Other (See Comments) 03/10/2008 Swelling in her mouth Medications Medication Sig Dispensed Refills Start Date End Date Status atorvastatin (LIPITOR) 40 MG tablet Take 40 mg by mouth in the morning. At bedtime 03/26/2021 Active buPROPion (WELLBUTRIN SR) 150 MG 12 hr tablet Take 150 mg by mouth 09/12/2020 Active cholecalciferol 50 MCG (1999 UT) tablet Take 2,000 Units by mouth in the morning. 10/23/2020 Active cyclobenzaprine (FLEXERIL) 10 MG tablet Take 10 mg by mouth in the morning. At bedtime 10/10/2020 Active blood glucose (CONTOUR NEXT TEST) test strip daily 05/05/2021 Act julieta metFORMIN (GLUCOPHAGE-XR) 500 MG 24 hr tablet Take 500 mg by mouth At Bedtime 04/10/2021 Active naproxen (NAPROSYN) 500 MG tablet Take 500 mg by mouth as needed (every 12 hours) 12/27/2020 Active sertraline (ZOLOFT) 50 MG tablet Take 50 mg by mouth in the morning. 03/05/2021 Active cycloSPORINE (RESTASIS) 0.05 % ophthalmic emulsion Place 1 drop into both eyes in the morning and 1 drop in the evening. Active VITAMIN D PO Take 4,000 Units by mouth daily Active BIOTIN PO Take by mouth daily Active cetirizine (ZYRTEC) 10 MG tablet Take 10 mg by mouth in the morning. Active nitroGLYcerin (NITROSTAT) 0.[address] 0.4 mg under the tongue every 5 minutes as needed for chest pain States she has medication, never taken Active Ascorbic Acid (VITAMIN C PO) Take 500 mg by mouth daily Active Multiple Vitamin (MULTIVITAMIN ADULT PO) Take 1 tablet by mouth daily Active Social History Tobacco Use Types Packs/Day Years Used Date Smoking Tobacco: Former Cigarettes 1 40 0 05/15/1979 - 05/15/2019 Smokeless Tobacco: Never Tobacco Cessation:Counseling Given: No Alcohol Use Standard Drinks/Week Comments Yes 0 (1 standard drink = 0.6 oz pur e alcohol) rare Adolescent Education Answer Date Record ed Getting School Help Needed Not on file 11/10 Sex and Gender Information Value Date Recorded Sex Assigned at Not on file Gender Identity Not on file Sexual Orientation Not on file Last Filed Vital Signs Vital Sign Reading Time Taken Comments Blood Pressure 149/76 05/24/2021 3:21 PM CDT Pulse 89 05/24/2021 3:21 PM CDT Temperature 36.4 ??C (97.6 ??F) 05/24/2021 3:21 PM CD T Respiratory Rate 16 05/24/2021 3:21 PM CDT Oxygen Saturation 98% 05/24/2021 3:21 PM CDT Inhaled Oxygen Concentration - - Weight 61.6 kg (135 lb 14.4 oz) 022 12:50 PM CDT Height 163.6 cm (5' 4.41) 05/24/2021 1 2:50 PM CDT Body Mass Index 23.03 05/24/2021 12:50 PM CDT Plan of Treatment Health Maintenance Due Date Last Done Comments ADVANCE CARE PLANNING 1946 ANNUAL REVIEW OF HM ORDERS 1946 DEXA 1946 LIPID 1946 HEPATITIS C SCREENING 1964 LUNG CANCER SCREENING 1996 RSV VACCINE ( & 60+) (1 - 1-dose 60+ series) 2006 ZOSTER IMMUNIZATION (2 of 3) 06/21/2010 04/26/2010 FALL RISK ASSESSMENT 08/22/2011 MEDICARE ANNUAL WELLNESS VISIT 03/26/2022 03/26/2021 COVID-19 Vaccine ( season) 2022 01/18/2021, 04/22/2020, 04/01/2020 PHQ-2 (once per calendar year) 2023 INFLUENZA VACCINE (Season Ended) 2023 01/12/2021, 11/16/2019, 11/03/2018, Additional history exists GLUCOSE 05/24/2024 05/24/2021, 05/11, 05/24/2021 DTAP/TDAP/TD IMMUNIZATION (3 - Td or Tdap) 10/11/2028 10/11/2018, 03/10/2008 Pneumococcal Vaccine: 65+ Years Completed 01/01/2016, 11/05/2013 HPV IMMUNIZATION Aged Out No longer e ligible based on patient's age to complete this topic IPV IMMUNIZATION Aged Out No longer e ligible based on patient's age to complete this topic MENINGITIS IMMUNIZATION Aged Out No l onger eligible based on patient's age to complete this topic RSV MONOCLONAL ANTIBODY Aged Out No l onger eligible based on patient's age to complete this topic Procedures Procedure Name Priority Date/Time Associated Diagnosis Comments COMPREHENSIVE METABOLIC PANEL STAT 05/24/2021 1:19 PM CDT from Last 3 Months or Most Recently Relevant to Health Maintenance Results * (ABNORMAL) Comprehensive metabolic panel (05/24/2021 1:19 PM CDT) Sodium 139 133 - 144 mmol/L 05/24/2021 2:10 PM CDT [facility] Potassium 4.1 3.4 - 5.3 mmol/L 05/24/2021 2:10 PM CDT [facility] Chloride 106 94 - 109 mmol/L 05/24/2021 2:10 PM CDT [facility] Carbon Dioxide (CO2) 27 20 - 32 mmol/L 05/24/2021 2:10 PM CDT [facility] Anion Gap 6 3 - 14 mmol/L 05/24/2021 2:10 PM CDT [facility] Urea Nitrogen 23 7 - 30 mg/dL 05/24/2021 2:10 PM CDT [facility] Creatinine 0.84 0.52 - 1.04 mg/dL 05/24/2021 2:10 PM CDT [facility] Calcium 9.3 8.5 - 10.1 mg/dL 05/24/2021 2:10 PM CDT [facility] Glucose 107(H) 70 - 99 mg/dL 05/24/2021 2:10 PM CDT [facility] Alkaline Phosphatase 47 40 - 150 U/L 05/24/2021 2:10 PM CDT [facility] AST 15 0 - 45 U/L 05/24/2021 2:10 PM CDT [facility] ALT 26 0 - 50 U/L 05/24/2021 2:10 PM CDT [facility] Protein Total 7.1 6.8 - 8.8 g/dL 05/24/2021 2:10 PM CDT [facility] Albumin 3.9 3.4 - 5.0 g/dL 05/24/2021 2:10 PM CDT [facility] Bilirubin Total 0.6 0.2 - 1.3 mg/dL 05/24/2021 2:10 PM CDT [facility] GFR Estimate 73 >60 mL/min/1.7 3m2 05/24/2021 2:10 PM CDT [facility] Comment:Effective January 112020 eGFRcr in adults is calculated using the 2020 CKD-EPI creatinine equation which includes age and gender (Johan et al., NEJM, DOI: 10.1056/VDXWlo6112737) Blood STRUCTURE OF LEFT HAND / Unknown Venipuncture / Unknown 05/24/2021 1:19 PM CDT 05/24/2021 1:28 PM CDT Calvin Murillo MD LAB - BLOOD OR DERABLES LABORATORY [facility] [address] Lab (1st floor, no room number) [place] [address], [facility] [phone] from Last 3 Months or Most Recently Relevant to Health Maintenance Care Teams Retail Account Manager Relationship Specialty Start Date End Date System, Provider Not In PCP - General Clinic 05/21/21
--- OUTSIDE RECORDS SUMMARY | 2023-06-23 08:34 | XMS_ITS | Clinical Summary ---
Author Name Unknown Organization [facility] Address [place], [place] [address] Care Team Providers Care Trial Examiner Name Role Phone Forrest Wilson MD Primary Care Provider Negrita London RN Unavailable [phone] Amanda Hernandez PharmD Unavailable [phone] Allergies Active Allergy Reactions Criticality Noted Date Comments Codeine Dizziness 03/10/2008 Metformin Other - Describe In Comment Field 01/14/2022 Vomiting on 1000mg. Ok on 500. Oxycodone Nausea Only 10/13/2018 Penicillins Edema 03/24/2006 Potassium Clavulanate Nausea And Vomiting 04/30 Prednisone Other - Describe In Comment Field 10/30/2022 Hallucinations Sulfa (Sulfonamide Antibiotics) Erythema,Rash Low 03/24/2006 Tramadol Other - Describe In Comment Field 03/10/2008 Swelling in her mouth Medications Medication Sig Dispensed Refills Start Date End Date Status cycloSPORINE (RESTASIS) 0.05 % ophthalmic emulsion Place 1 Drop into the eye(s) every 12 hours. 3 Bottle 3 5 Active ascorbic acid, vitamin C, (VITAMIN C) 500 mg tablet Take 1 tablet by mouth once daily. 0 7 Active nitroglycerin (NITROSTAT) 0.4 mg sublingual tabletIndications: Chest pain in adult Place 1 tablet under the tongue every 5 minutes if needed for Chest Pain. 30 tablet 1 8 Active albuterol (PROVENTIL) 0.083 % neb solutionIndication s:COPD exacerbation (HC) Inhale 3 mL (2.5 mg) via a nebulizer every 6 hours if needed for Cough 1st choice. 180 mL 2 Active spironolactone (ALDACTONE) 25 mg tabletIndications: Essential hypertension Take 0.5 Tablets (12.5 mg) by mouth every morning. further refills to follow 11/12/22 visit with Alvarado Martino MD. 45 Tablet 3 Active albuterol HFA (PRO-AIR; VENTOLIN; PROVENTIL) 90 mcg/actuation inhalerIndications :Wheeze Inhale 1-2 Puffs by mouth every 4 hours if needed for Shortness Of Breath. 1 Each 1 3 Active fluticasone propion-salmeteroL (Advair Diskus) 250-50 mcg/Dose diskus inhalerIndications :Wheeze Inhale 1 Puff by mouth two times daily. 60 Each 12 3 Active blood sugar diagnostic (Contour Next Test Strips) stripIndications:C ontrolled type 2 diabetes mellitus with complication, without long-term current use of insulin (HC) TEST ONE TIME DAILY. DX E11.9 100 Each 3 3 Active glipiZIDE extended-release (GLUCOTROL XL) 2.5 mg Extended-Release tabletIndications: Controlled type 2 diabetes mellitus with complication, without long-term current use of insulin (HC) Take 1 Tablet (2.5 mg) by mouth once daily before a meal. 90 Tablet 1 4 Active atorvastatin (LIPITOR) 40 mg tabletIndications: Hyperlipidemia, unspecified hyperlipidemia type Take 1 Tablet (40 mg) by mouth at bedtime. 90 Tablet 3 4 Active metFORMIN (GLUCOPHAGE XR) 500 mg Extended-Release tabletIndications: Controlled type 2 diabetes mellitus with complication, without long-term current use of insulin (HC) Take 1 Tablet (500 mg) by mouth once daily. 90 Tablet 1 4 Active buPROPion (WELLBUTRIN SR) 150 mg Sustained-Release tabletIndications: Anxiety and depression Take 1 Tablet (150 mg) by mouth every morning. 90 Tablet 3 4 Active sertraline (ZOLOFT) 50 mg tabletIndications: Anxiety Take 1.5 Tablets (75 mg) by mouth every morning. 135 Tablet 3 4 Active albuterol-ipratrop ium (DUONEB) (2.5-0.5 mg) in 3 mL NEBULIZATION solutionIndication s:Chronic bronchitis, unspecified chronic bronchitis type (HC) Inhale 3 mL via a nebulizer 4 times daily if needed for Shortness Of Breath. 1080 mL 3 4 Active lancets (TRUEplus Lancets) 33 gauge miscIndications:Co ntrolled type 2 diabetes mellitus with complication, without long-term current use of insulin (HC) TEST ONE TIME DAILY. DX E11.9 DIRECTED 100 Each 3 4 Active cyclobenzaprine (FLEXERIL) 10 mg tabletIndications: Fibromyalgia TAKE 1 TABLET (10MG) BY MOUTH AT BEDTIME NEEDED. 90 Tablet 3 4 Active polyethylene glycol-electrolyte (GOLYTELY) 236-22.74-6.74 -5.86 gram suspensionIndicati ons:Polyp of colon, unspecified part of colon, unspecified type Drink 2 liters the day before colonoscopy and 2 liters 6 hours before colonoscopy appointment 4000 mL 4 Active latanoprost (XALATAN) 0.005 % ophthalmic solutionIndication s:Glaucoma, unspecified glaucoma type, unspecified laterality Place 1 Drop into both eyes at bedtime. 4 Active cholecalciferol (VITAMIN D3) 2,000 unit capsuleIndications :Health care maintenance Take 2 Capsules (4,000 units) by mouth once daily. 4 Active Ca carb-D3-mag rh-atz-eqrh-Zn 600 mg-20 mcg- 40 mg-0.25 mg chewIndications:Os teoporosis, unspecified osteoporosis type, unspecified pathological fracture presence Chew 1 Tablet by mouth two times daily. 4 Active loratadine (CLARITIN) 10 mg tabletIndications: Environmental allergies Take 1 Tablet (10 mg) by mouth once daily. 4 Active sacubitril-valsart an (ENTRESTO 49 MG-51 MG TABLET) 49-51 mg tabletIndications: HFrEF (heart failure with reduced ejection fraction) (HC) Take 1 Tablet by mouth two times daily. 16 Tablet 3 4 Active carvediloL (COREG) 12.5 mg tabletIndications: Cardiomyopathy, unspecified type (HC) TAKE 1 TABLET TWICE A DAY WITH MEALS (INCREASE IN DOSE) 180 Tablet 3 4 Active carvediloL (COREG) 12.5 mg tabletIndications: Cardiomyopathy, unspecified type (HC) Take 1 Tablet (12.5 mg) by mouth two times daily with meals. 180 Tablet 3 3 024 Discontinued sacubitril-valsart an (ENTRESTO 49 MG-51 MG TABLET) 49-51 mg tabletIndications: HFrEF (heart failure with reduced ejection fraction) (HC) Take 1 Tablet by mouth two times daily. 180 Tablet 3 4 024 Discontinued(Re order (E-cancel not sent)) sacubitril-valsart an (ENTRESTO 49 MG-51 MG TABLET) 49-51 mg tabletIndications: HFrEF (heart failure with reduced ejection fraction) (HC) Take 1 Tablet by mouth two times daily. 15 Tablet 3 4 024 Discontinued(Re order (E-cancel not sent)) Active Problems Problem Noted Date Diagnosed Date Type 2 diabetes mellitus wit h stage 3a chronic kidney disease, without long-term current use of insulin 02/12/2023 Stage 3a chronic kidney disease 02/12/2023 Depression, recurrent 08/12/2022 Nonischemic cardiomyopathy 04/12/2022 HFrEF (heart failure with reduced ejection fract ion) 04/01/2022 Teeth grinding 01/14/2022 Anxiety 01/14/2022 Chronic obstructive pulmonary disease 03/14/2020 Controlled type 2 diabetes m ellitus with complication, without long-term current use of insulin 08/12/2019 Diverticulosis of large intestine 06/30/2018 Atypical chest pain, nl angio after abnl stress test 07/23/2017 Essential hypertension 05/30/2017 Pulmonary nodule 12/24/2016 Sensorineural hearing loss, bilateral 12/12/2015 Osteoporosis 06/17/2013 Overview: DEXA 06/2013. Colon polyps 02/25/2013 Fibromyalgia 03/24/2006 Overview: fibromyalgia Hyperlipidemia 03/24/2006 Resolved Problems Problem Noted Date Diagnosed Date Resolved Date Greater trochanteric bursitis of right hip 03/30/2019 03/26/2021 History of colon polyps 06/30/201809/10 Abnormal stress test 07/23/2017 018 Overview: -Stress Myoview 06/18/2017 Mild ischemia in the apical anterior wall and apex Thyroid mass 06/27/2017 03/26/2021 Type II diabetes mellitus 04/28/2017 Tobacco abuse 06/26/2016 03/14/2020 Caregiver stress 06/04/2011 09/26/2017 Overview: with dementia Adjustment disorder 06/04/2011 09/27/19 18 Overview: with dementia. Post herpetic neuralgia 05/26/200903/13 Encounter for long-term (cur rent) use of other medications 04/02/2007 09/26/2017 Mild mood disorder 1 Overview: been on Paxil, [place]'s Wort, Wellbutrin SR Personal history of colonic polyps 09/26/2017 Overview: Colonoscopy 06/2018 severe diverticuli, repeat in 5 years, PEG 4L Mild mood disorder 1 Overview: been on Paxil, [place]id[place]'s Wort, Wellbutrin SR Encounters Date Type Department Care Team Description 06/18/2023 8:00 AM CDT Preop Visit [facility] [address] [place] [address] Forrest Wilson MD Preoperative Exam (DOS: 06/23/2023, colonoscopy, [facility], Dr. Kaufman) 06/18/2023 Travel 06/16/2023 Refill [facility] [place] [address] [place], [place] [address] [address] [place] [address] Ghassan Craft MD Refill Request (Carvedilol) 06/15/2023 Travel 06/03/2023 Telephone [facility] [address] [place] [address] [place] [phone] Ghassan Craft MD Medication Management 06/03/2023 Telephone [facility] [address] [place] [address] [place] [phone] Ghassan Craft MD Health Maintenance Update 05/30/2023 Telephone [facility] [address] [id number] Ghassan Craft MD OTHER 05/23/2023 1:30 PM CDT Pharmacist Medication Management [facility] [address] [place] [address] Amanda Hernandez PharmD Pharmacist Medication Management (CMR initial - insurance referral - phone visit) 05/23/2023 Travel 05/19/2023 Travel 05/01/2023 Telephone [facility] [address] [place] [address] [place] [phone] Ghassan Craft MD to advise 05/01/2023 Telephone [facility] [address] [place] [address] [place] [phone] Ghassan Craft MD Need Meds 04/29/2023 1:00 PM CDT Ancillary Procedure [facility] [address] [place] [address] 04/29/2023 Travel 04/29/2023 Refill [facility] [address] [place] [address] [place] [phone] Ghassan Craft MD Refill Request (Entresto 49 Mg-51 Mg Tablet) 04/21/2023 11:20 AM CDT Ancillary Procedure [facility] [address] [place] [address] 04/21/2023 Travel 04/17/2023 3:00 PM MACHINE TRACER Office Visit [facility] [place] [address] [place] [address] Dr [address] [place] [address] Ghassan Craft MD CV General Cardiology Est (Annual F/U; Pt has no concerns) 04/16/2023 Travel 03/31/2023 10:55 AM MACHINE TRACER Office Visit [facility] [address] [place] [address] Forrest Wilson MD Medicare ANNUAL (subsequent) Visit (77 year old); Concerns (COPD flaring up - increase in cough, SOB and wheezing); Results (Discuss CT scan results) 03/31/2023 Telephone [facility] [address] [place] [address] Clint Kaufman MD Screening 03/31/2023 Travel from Last 3 Months Immunizations Name Administration Dates Next Due AMB INFLUENZA IIV3 (AGE 65+ YRS) PF (Flu Clinic Only) 11/20/2017 Amb Influenza, Inactivated A IIV4 (Age 65+ Years) Preserv Free 11/16/2019 COVID-19 vaccine ([employer] [facility] [employer] 30mcg/0.3mL) 12YO+ BIVALENT PF, MDV 10/31/2021 COVID-19 vaccine (Pfizer-Bio NTech 30mcg/0.3mL) PF, MDV 04/22/2020,04/01/2020 Influenza, High-dose Inactivated 01/01/2016 Influenza, IIV3 (Age >=3 years) 12/31/2007 Influenza, Inactivated AIIV4 (Age 65+ Years) Preserv Free 11/05/2022,11/27/2021,01/12/2021 Influenza, Inactivated IIV3 (Age 65+ Years) Preserv Free 11/03/2018,12/17/2016 Pneumococcal Conj 20-valent (Prevnar 20) 023 Pneumococcal Poly,23-Valent (Pneumovax) 11/06/19 14 Pneumococcal conj 13-Valent (Prevnar 13) 016 Tdap 10/11/2018,03/10/2008 Zoster (Zostavax-ZVL, live) 04/26/2010 Family History Medical [...] Grandfather Maternal Grandmother Mother (Age 86) 2009, ?pne [place] Paternal Grandfather Paternal Grandmother Sister 1 Alive x2 Sister 2 x2 Social History Tobacco Use Types Packs/Day Years Used Date Smoking Tobacco: Former Cigarettes 0.2 41.7 0 02/10/1977 - 10/11/2018 Smokeless Tobacco: Never Tobacco Cessation:Counseling Given: No Comments:quit cigarrettes 09/10/18 Alcohol Use Standard Drinks/Week Comments Yes 0 (1 standard drink = 0.6 oz pur e alcohol) occ PHQ-2 Answer Date Recorded PHQ-2 TOTAL SCORE 1 03/31/2023 Social Connections Answer Date Recorded Frequency of Communication with Friends and Fami ly 0 02/27/2023 Financial Resource Strain Answer Date R ecorded Difficulty of Paying Living Expenses 3 02/27/2023 Difficulty of Paying Living Expenses Not on file 02/27/2023 Food Insecurity Answer Date Recorded Worried About Running Out of Food in the Last Ye ar 1 02/27/2023 Transportation Needs Answer Date Record ed Lack of Transportation (Medical) 1 02/27/2023 Housing Stability Answer Date Recorded Unable to Pay for Housing in the Last Year 1 02/27/2023 Sex and Gender Information Value Date Recorded Sex Assigned at Not on file Gender Identity Not on file Sexual Orientation Not on file Obstetrics History Last Filed Vital Signs Vital Sign Reading Time Taken Comments Blood Pressure 147/79 06/18/2023 7:55 AM CDT Pulse 72 06/18/2023 7:55 AM CDT Temperature 36.5 ??C (97.7 ??F) 02/27/2023 2:54 PM CS T Respiratory Rate 18 02/01/2021 7:10 PM MACHINE TRACER Oxygen Saturation 95% 06/18/2023 7:55 AM CDT Inhaled Oxygen Concentration - - Weight 63.7 kg (140 lb 6.4 oz) 06/18/2023 7:55 A M CDT Height 162.8 cm (5' 4.09) 06/18/2023 7:55 AM CD T Body Mass Index 24.03 06/18/2023 7:55 AM CDT Plan of Treatment Upcoming Encounters Date Type Department Care Team (Late st Contact Info) Description 08/13/2023 9:15 AM CDT Office Visit [facility] [address] [place] [address] Forrest Wilson MD [address] [place] [address] Health Maintenance Due Date Last Done Comments Zoster (shingles) series for age 50+ (2 of 3) 06/21/2010 04/26/2010 COVID-19 vaccine series (2022- season) 2022 10/31/2021, 01/18/2021, 04/22/2020, Additional history exists Influenza for age 65+ 10/12/2023 11/05/2022 , 11/27/2021, 01/12/2021, Additional history exists Depression screening for age 12+ 03/31/2024 03/31/2023, 03/31/2023, 04/03/2022, Additional history exists Medicare Wellness for age 65+ 03/31/2024, 04/01/2022, 03/26/2021, Additional history exists BMI (ht and wt on same day) for age 18+ 06/17/2024 06/18/2023, 04/17/2023, 03/31/2023, Additional history exists Tetanus booster 10/11/2028 10/11/2018, 03/10/2008 DEXA/DXA scan for age 65+ Completed 06/11/2013, Hepatitis C screening for ag e 18-79 Completed 01/01/2016 Tdap Completed 10/11/2018, 03/10/2008 Pneumococcal series for age 65+ Completed 04/01/2022, 01/01/2016, 11/05/2013 Procedures Procedure Name Priority Date/Time Associated Diagnosis Comments COLONOSCOPY SCREENING Routine 06/23/2023 7:59 AM CDT Screening for colon cancer POTASSIUM,ISTAT Routine 06/18/2023 8:31 AM CDT Stage 3a chronic kidney disease (HC) CREATININE,ISTAT Routine 06/18/2023 8:31 AM CDT Stage 3a chronic kidney disease (HC) US CAROTID DUPLEX BILATERAL Routine 04/29/2023 1:24 PM CDT Bilateral carotid artery stenosis XR MAMMO BOBBY BILAT SCREEN Routine 04/21/2023 11:32 AM CDT Visit for screening mammogram ANTI HCV Routine 01/01/2016 10:53 AM MACHINE TRACER Need for hepatitis C screening test XR DXA BONE DENSITY 2 SITES AXIAL Routine 06/11/2013 9:30 AM CDT Osteopenia from Last 3 Months or Most Recently Relevant to Health Maintenance Results * POTASSIUM,ISTAT (06/18/2023 8:31 AM CDT) POTASSIUM, POCT 4.6 3.5 - 5.0 mmol/L 06/18/2023 8:37 AM CDT [facility] Blood BLOOD SPECIMEN / Unknown 06/18/2023 8:31 AM CDT 06/18/2023 8:37 AM CDT Forrest Wilson MD CHEMISTRY [facility] [address] [place] [address], * (ABNORMAL) CREATININE,ISTAT (06/18/2023 8:31 AM CDT) CREATININE, POCT 1.10 0.57 - 1.11 mg/dL 06/18/2023 8:34 AM CDT [facility] Comment:Caution: Patients ta taylor Hydroxyurea have falsely increased iStat Creatinine results. Verify creatinine results ordering a Creatinine (94573.2) eGFR 52(L) >90 mL/min/1.7 3m2 06/18/2023 8:34 AM CDT [facility] Comment:As of 2021, eG FR is calculated by the CKD-EPI creatinine equation without race adjustment. eGFR can be influenced by muscle mass, exercise, and diet. The reported eGFR is an estimation only and is only applicable if the renal function is stable. Blood BLOOD SPECIMEN / Unknown 06/18/2023 8:31 AM CDT 06/18/2023 8:34 AM CDT Forrest Wilson MD CHEMISTRY [facility] [address] [place] [address], * US CAROTID DUPLEX BILATERAL (04/29/2023 1:24 PM CDT) Anatomical Region Laterality Modality CAROTID, NECK Ultrasound 04/29/2023 3:05 PM CDT Impressions 04/29/2023 3:05 PM CDT 50-69 percent stenosis of the distal right ICA, closer to 50 percent. Less than 50 percent stenosis of the left ICA. Dictated by Enrique Rosario MD @ 04/29/2023 3:05:36 PM (Electronically Signed) Narrative 04/29/2023 3:05 PM CDT For Patients: ??As a result of the Century Cures Act, medical imaging exams and procedure reports are released immediately into your electronic medical record. ??You may view this report before your referring provider. ??If you have questions, please contact your health care provider. CLINICAL HISTORY: Bilateral carotid artery stenosis TECHNIQUE: The carotid circulations and the vertebral arteries in the neck were examined with redd-scale ultrasound, color-flow and Doppler spectral analysis. Degrees of stenosis were determined using SRU 2002 Consensus Panel Criteria. Comparison: 03/27/2021 FINDINGS: Sonographic images demonstrate bilateral atherosclerotic plaque formation without suspicious soft tissue mass. ??There was antegrade blood flow demonstrated within the vertebral arteries and the subclavian arteries demonstrated a normal triphasic waveform. ??The spectral Doppler tracings of the common carotid, internal and external carotid arteries demonstrate no abnormal turbulence or spectral broadening. ??There was mild significant elevation of peak systolic blood flow within the distal right ICA measuring 127 cm/second which would indicate a hemodynamically- significant stenosis by SRU criteria. The ICA/CCA peak systolic velocity ratio measures 1.65 on the right and 1.22 on the left. ?? Procedure Note Enrique Rosario MD - 04/29/2023 For Patients: As a result of the Cures Act, medical imagingexams and procedure reports are released immediately into your electronicmedical record. You may view this report before your referring provider.If you have questions, please contact your health care provider. CLINICAL HISTORY: Bilateral carotid artery stenosis TECHNIQUE: The carotid circulations and the vertebral arteries in the neck wereexamined with redd-scale ultrasound, color-flow and Doppler spectralanalysis. Degrees of stenosis were determined using SRU 2002 ConsensusPanel Criteria. Comparison: 03/27/2021 FINDINGS: Sonographic images demonstrate bilateral atherosclerotic plaque formationwithout suspicious soft tissue mass. There was antegrade blood flowdemonstrated within the vertebral arteries and the subclavian arteriesdemonstrated a normal triphasic waveform. The spectral Doppler tracingsof the common carotid, internal and external carotid arteries demonstrateno abnormal turbulence or spectral broadening. There was mild significantelevation of peak systolic blood flow within the distal right ICAmeasuring 127 cm/second which would indicate a hemodynamically- significantstenosis by SRU criteria. The ICA/CCA peak systolic velocity ratiomeasures 1.65 on the right and 1.22 on the left. IMPRESSION: 50-69 percent stenosis of the distal right ICA, closer to 50 percent. Less than 50 percent stenosis of the left ICA. Dictated by Enrique Rosario MD @ 04/29/2023 3:05:36 PM (Electronically Signed) Forrest Wilson MD US * XR MAMMO BOBBY BILAT SCREEN (04/21/2023 11:32 AM CDT) Anatomical Region Laterality Modality BREASTS, Breast Left, Breast Right Bilateral Mammography Impressions 04/21/2023 2:36 PM CDT ??There is no radiographic evidence for malignancy. ??Recommend annual mammograms. MAMMOGRAM ASSESSMENT: ??ACR 1 Negative PATIENTS: You will also receive a letter with your examination results in an easy to read format. ??If you have questions about your results, please contact your referring provider. Narrative 04/21/2023 2:36 PM CDT For Patients: As a result of the 21st Century Cures Act, medical imaging exams and procedure reports are released immediately into your electronic medical record. You may view this report before your referring provider. If you have questions, please contact your health care provider. XR MAMMO BOBBY BILAT SCREEN [[id number]] CLINICAL HISTORY: ??This is an asymptomatic 77 y.o. patient. INDICATION FOR EXAM: Mammogram Screening. TECHNIQUE: CC & MLO views were obtained. ??This study was evaluated with the assistance of Computer-Aided Detection. Breast Tomosynthesis was used in interpretation. COMPARISON FILM: Yes 04/01/22 [facility] FINDINGS: ??The breasts are heterogeneously dense, which may obscure small masses. There are no dominant masses, suspicious micro calcifications or areas of architectural distortion. Forrest Wilson MD MAMMO * ANTI HCV [16174.2] (01/01/2016 10:53 AM MACHINE TRACER) HEPATITIS C ANTIBODY Non-Reacti ve Non-Reacti ve 01/01/2016 8:55 PM MACHINE TRACER [facility] Blood BLOOD SPECIMEN / Unknown Venipuncture / Unknown 01/01/2016 10:53 AM MACHINE TRACER 01/01/2016 10:53 AM MACHINE TRACER Narrative [facility] - 01/01/2016 8:55 PM MACHINE TRACER Antibodies to HCV not detected; does not exclude the possibility of exposure to HCV. Mandeep Hernandez DO SEND OUTS [facility] [address] [place] [address], [place] * (ABNORMAL) XR DXA BONE DENSITY 2 SITES (06/11/2013 9:30 AM CDT) Anatomical Region Laterality Modality Spine, HIPS, HIPL, HIPR Bone Den sitometry Narrative 06/17/2013 12:44 PM CDT Please see scanned document for results of this study. Procedure Note Camille Tolbert MD - 06/17/2013 Please see scanned document for results of this study. Mandeep Hernandez DO DEXA from Last 3 Months or Most Recently Relevant to Health Maintenance Advance Directives Documents on File Type Date Recorded Patient Ore Mixer Expl anation Healthcare Directive 06/03/2016 1:07 PM TAMELA GUDINO WILL and HEALTHCARE SURROGATE, 10/10/2015 * Full Code (Latest Code Status on File) Date Activated Date Inactivated Comments 08/29/2017 9:30 AM 08/29/2017 3:22 PM * Full Code Date Activated Date Inactivated Comments 08/29/2017 9:30 AM 08/29/2017 9:30 AM * Full Code Date Activated Date Inactivated Comments 07/24/2017 7:02 AM 07/24/2017 4:31 PM Care Teams Trial Examiner Relationship Specialty Start Date End Date Forrest Wilson MD [address] [place] [address] PCP - General Family Practice 05/17/16 Negrita London, RN [address] [facility] [address] [place] [address] [employer] 11/09/19 Amanda Hernandez, AlvinaD [address] [place], [place] [address]tam [facility] [place] [address] Pharmacist Medication Management Pharmacology 05/23/23 05/22/26
--- OUTSIDE RECORDS SUMMARY | 2023-06-23 08:34 | XMS_ITS | Referral Summary ---
Author Name Unknown Organization [facility] Address [address] [place] [address] Care Team Providers Care Telephone Appointment Clerk Name Role Phone System, Provider Not In [...] 05/24/2021 12:50 PM CDT Plan of Treatment Not on file Procedures Procedure Name Priority Date/Time Associated Diagnosis Comments COMPREHENSIVE METABOLIC PANEL STAT 05/24/2021 1:19 PM CDT from Last 3 Months or Most Recently Relevant to Health Maintenance Results * (ABNORMAL) Comprehensive metabolic panel (05/24/2021 1:19 PM CDT) [facility] Sodium 139 133 - 144 mmol/L 05/24/2021 2:10 PM CDT LABORATORY Potassium 4.1 3.4 - 5.3 mmol/L 05/24/2021 2:10 PM CDT LABORATORY Chloride 106 94 - 109 mmol/L 05/24/2021 2:10 PM CDT LABORATORY Carbon Dioxide (CO2) 27 20 - 32 mmol/L 05/24/2021 2:10 PM CDT LABORATORY Anion Gap 6 3 - 14 mmol/L 05/24/2021 2:10 PM CDT LABORATORY Urea Nitrogen 23 7 - 30 mg/dL 05/24/2021 2:10 PM CDT LABORATORY Creatinine 0.84 0.52 - 1.04 mg/dL 05/24/2021 2:10 PM CDT LABORATORY Calcium 9.3 8.5 - 10.1 mg/dL 05/24/2021 2:10 PM CDT LABORATORY Glucose 107(H) 70 - 99 mg/dL 05/24/2021 2:10 PM CDT LABORATORY Alkaline Phosphatase 47 40 - 150 U/L 05/24/2021 2:10 PM CDT LABORATORY AST 15 0 - 45 U/L 05/24/2021 2:10 PM CDT LABORATORY ALT 26 0 - 50 U/L 05/24/2021 2:10 PM CDT LABORATORY Protein Total 7.1 6.8 - 8.8 g/dL 05/24/2021 2:10 PM CDT LABORATORY Albumin 3.9 3.4 - 5.0 g/dL 05/24/2021 2:10 PM CDT LABORATORY Bilirubin Total 0.6 0.2 - 1.3 mg/dL 05/24/2021 2:10 PM CDT LABORATORY GFR Estimate 73 >60 mL/min/1.7 3m2 05/24/2021 2:10 PM CDT LABORATORY Comment:Effective January 112020 eGFRcr in adults is calculated using the 2020 CKD-EPI creatinine equation which includes age and gender (Johan et al., NEJM, DOI: 10.1056/[id number]) Blood STRUCTURE OF LEFT HAND / Unknown Venipuncture / Unknown 05/24/2021 1:19 PM CDT 05/24/2021 1:28 PM CDT Calvin Murillo MD LAB - BLOOD OR DERABLES LABORATORY [facility] [address] Lab (1st floor, no room number) [place] [address], [facility] [phone] from Last 3 Months or Most Recently Relevant to Health Maintenance Care Teams Telephone Appointment Clerk Relationship Specialty Start Date End Date System, Provider Not In PCP - General Clinic 05/21/21
--- NOTE | 2023-06-23 10:19 | W.ANESCHARGE ---
Anesthesia Charges Start Date/Time Anesthesia Start Date: 06/23/23 Anesthesia Start Time: 09:45 Stop Date/Time Anesthesia Stop Date: 06/23/23 Anesthesia Stop Time: 10:17
--- NOTE | 2023-06-23 11:50 | W.ANESCHARGE ---
Anesthesia Charges Start Date/Time Anesthesia Start Date: 06/23/23 Anesthesia Start Time: 09:45 Stop Date/Time Anesthesia Stop Date: 06/23/23 Anesthesia Stop Time: 10:17 Summary Extremes of Age - Over 70 or under 1: MDA
== END 2023-06-23 08:31 | disposition home or self-care (01) ==
LOC: OP CLINIC 08:31
PROVIDERS: PCP Family Medicine; Visit Provider Internal Medicine Gastroenterology
DX: Z12.11 Encounter for screening for malignant neoplasm of colon (principal); K63.5 Polyp of colon; K57.30 Diverticulosis of large intestine without perforation or abscess without bleeding; Q43.8 Other specified congenital malformations of intestine; Z86.010 Personal history of colon polyps
CPT/HCPCS: 00811; 45385; 88305; 99100; J2704

== ENCOUNTER 2023-10-15 11:55 | Outpatient (CLI) | payer MEDICARE, OTHER, SELFPAY ==
--- OUTSIDE RECORDS SUMMARY | 2023-10-19 14:56 | XMS_ITS | Clinical Summary ---
Author Organization [facility] Address [place], [place] [address] Care Team Providers Care Street Light Wirer Name Role Phone Forrest Wilson MD Primary Care Provider Negrita London RN Unavailable [phone] Allergies Active Allergy Reactions Criticality Noted Date [...] 7 Active nitroglycerin (NITROSTAT) 0.4 mg sublingual tabletIndications:C hest pain in adult Place 1 tablet under the tongue every 5 minutes if needed for Chest Pain. 30 tablet 1 8 Active albuterol (PROVENTIL) 0.083 % neb solutionIndications :COPD exacerbation (HC) Inhale 3 mL (2.5 mg) via a nebulizer every 6 hours if needed for Cough 1st choice. 180 mL 2 Active albuterol HFA (PRO-AIR; VENTOLIN; PROVENTIL) 90 mcg/actuation inhalerIndications: Wheeze Inhale 1-2 Puffs by mouth every 4 hours if needed for Shortness Of Breath. 1 Each 1 3 Active fluticasone propion-salmeteroL (Advair Diskus) 250-50 mcg/Dose diskus inhalerIndications: Wheeze Inhale 1 Puff by mouth two times daily. 60 Each 12 3 Active blood sugar diagnostic (Contour Next Test Strips) stripIndications:Co ntrolled type 2 diabetes mellitus with complication, without long-term current use of insulin (HC) TEST ONE TIME DAILY. DX E11.9 100 Each 3 3 Active atorvastatin (LIPITOR) 40 mg tabletIndications:H yperlipidemia, unspecified hyperlipidemia type Take 1 Tablet (40 mg) by mouth at bedtime. 90 Tablet 3 4 Active buPROPion (WELLBUTRIN SR) 150 mg Sustained-Release tabletIndications:A nxiety and depression Take 1 Tablet (150 mg) by mouth every morning. 90 Tablet 3 4 Active sertraline (ZOLOFT) 50 mg tabletIndications:A nxiety Take 1.5 Tablets (75 mg) by mouth every morning. 135 Tablet 3 4 Active albuterol-ipratropi um (DUONEB) (2.5-0.5 mg) in 3 mL NEBULIZATION solutionIndications :Chronic bronchitis, unspecified chronic bronchitis type (HC) Inhale 3 mL via a nebulizer 4 times daily if needed for Shortness Of Breath. 1080 mL 3 4 Active lancets (TRUEplus Lancets) 33 gauge miscIndications:Con trolled type 2 diabetes mellitus with complication, without long-term current use of insulin (HC) TEST ONE TIME DAILY. DX E11.9 DIRECTED 100 Each 3 4 Active cyclobenzaprine (FLEXERIL) 10 mg tabletIndications:F ibromyalgia TAKE 1 TABLET (10MG) BY MOUTH AT BEDTIME NEEDED. 90 Tablet 3 4 Active polyethylene glycol-electrolyte (GOLYTELY) 236-22.74-6.74 -5.86 gram suspensionIndicatio ns:Polyp of colon, unspecified part of colon, unspecified type Drink 2 liters the day before colonoscopy and 2 liters 6 hours before colonoscopy appointment 4000 mL 4 Active latanoprost (XALATAN) 0.005 % ophthalmic solutionIndications :Glaucoma, unspecified glaucoma type, unspecified laterality Place 1 Drop into both eyes at bedtime. 4 Active cholecalciferol (VITAMIN D3) 2,000 unit capsuleIndications: Health care maintenance Take 2 Capsules (4,000 units) by mouth once daily. 4 Active Ca carb-D3-mag rm-grc-vspt-Zn 600 mg-20 mcg- 40 mg-0.25 mg chewIndications:Ost eoporosis, unspecified osteoporosis type, unspecified pathological fracture presence Chew 1 Tablet by mouth two times daily. 4 Active loratadine (CLARITIN) 10 mg tabletIndications:E nvironmental allergies Take 1 Tablet (10 mg) by mouth once daily. 4 Active carvediloL (COREG) 12.5 mg tabletIndications:C ardiomyopathy, unspecified type (HC) TAKE 1 TABLET TWICE A DAY WITH MEALS (INCREASE IN DOSE) 180 Tablet 3 4 Active spironolactone (ALDACTONE) 25 mg tabletIndications:E ssential hypertension Take 0.5 Tablets (12.5 mg) by mouth once daily in the morning. Due for annual visit in 04/2024. Call in 12/2023 to schedule. Further refills to be provided after next visit. 45 Tablet 2 4 Active nystatin powder (MYCOSTATIN) powderIndications:R sunil Apply 1 Strip topically to affected area(s) three times daily. 60 g 3 4 Active glipiZIDE extended-release (GLUCOTROL XL) 2.5 mg Extended-Release tabletIndications:C ontrolled type 2 diabetes mellitus with complication, without long-term current use of insulin (HC) Take 1 Tablet (2.5 mg) by mouth once daily before a meal. 90 Tablet 1 4 Active metFORMIN (GLUCOPHAGE XR) 500 mg Extended-Release tabletIndications:C ontrolled type 2 diabetes mellitus with complication, without long-term current use of insulin (HC) Take 1 Tablet (500 mg) by mouth once daily. 90 Tablet 1 4 Active sacubitril-valsarta n (ENTRESTO 49 MG-51 MG TABLET) 49-51 mg tabletIndications:H FrEF (heart failure with reduced ejection fraction) (HC) TAKE 1 TABLET BY MOUTH TWO TIMES DAILY. 180 Tablet 3 4 Active sacubitril-valsarta n (ENTRESTO 49 MG-51 MG TABLET) 49-51 mg tabletIndications:H FrEF (heart failure with reduced ejection fraction) (HC) Take 1 Tablet by mouth two times daily. 16 Tablet 3 4 09/29/19 24 Discontinued Active Problems Problem Noted Date Diagnosed Date [...] Sensorineural hearing loss, bilateral 12/12/2015 Osteoporosis 06/17/2013 Overview (06/17/2013): DEXA 06/2013. Colon polyps 02/25/2013 Overview (06/27/2023): Colonoscopy 06/2023 severe diverticuli, repeat in 7 years Fibromyalgia 03/24/2006 Overview (03/24/2006): fibromyalgia Hyperlipidemia 03/24/2006 Resolved Problems Problem Noted Date Diagnosed Date Resolved Date Greater trochanteric bursitis of right hip 03/30/2019 03/26/2021 History of colon polyps 06/30/201809/10 Abnormal stress test 07/23/2017 018 Overview (07/23/2017): -Stress Myoview 06/18/2017 Mild ischemia in the apical anterior wall and apex Thyroid mass 06/27/2017 03/26/2021 Type II diabetes mellitus 04/28/2017 Tobacco abuse 06/26/2016 03/14/2020 Caregiver stress 06/04/2011 09/26/2017 Overview (06/04/2011): with dementia Adjustment disorder 06/04/2011 09/27/19 18 Overview (06/04/2011): with dementia. Post herpetic neuralgia 05/26/200903/13 Encounter for long-term (cur rent) use of other medications 04/02/2007 09/26/2017 Mild mood disorder 1 Overview (03/10/2008): been on Paxil, [place]'s Wort, Wellbutrin SR Personal history of colonic polyps 09/26/2017 Overview (06/30/2018): Colonoscopy 06/2018 severe diverticuli, repeat in 5 years, PEG 4L Mild mood disorder 1 Overview (09/12/2020): been on Paxil, Isid[place]'s Wort, Wellbutrin SR Encounters Date Type Department Care Team Description 09/29/2023 Refill [facility] [place] [address] [place] [id number] Ghassan Craft MD Refill Request (Entresto 49 Mg-51 Mg Tablet) 09/22/2023 8:48 AM CDT - 09/22/2023 11:59 PM CDT Hospital Encounter [facility] [address] [place] [address] Forrest Wilson MD COPD mixed type (HC) 09/22/2023 Travel 08/13/2023 10:15 AM CDT Ancillary Procedure [facility] [address] [place] [address] 08/13/2023 9:15 AM CDT Office Visit [facility] [address] [place] [facility] [address] Forrest Wilson MD Diabetes (6 month follow up); Foot Problem (Twisted left foot about 3 weeks ago, still having pain) 08/13/2023 Travel 07/29/2023 Refill [facility] Oneida Mishra [address] [place] [address] Dr [place] [address] Ghassan Craft MD Refill Request (Spironolactone) 07/29/2023 Refill [facility] [address] [place] [place] [address] Forrest Wilson MD Refill Request (Glipizide Extended-release) from Last 3 Months Immunizations Name Administration Dates Next Due AMB INFLUENZA IIV3 (AGE 65+ YRS) PF (Flu Clinic Only) 11/20/2017 Amb Influenza, Inactivated A IIV4 (Age 65+ Years) Preserv Free 11/16/2019 COVID-19 vaccine ([employer] 30mcg/0.3mL) 12YO+ BIVALENT PF, MDV 10/31/2021 COVID-19 vaccine ([employer] 30mcg/0.3mL) PF, MDV 04/22/2020,04/01/2020 Influenza, High-dose [...] Sign Reading Time Taken Comments Blood Pressure 105/66 08/13/2023 9:09 AM CDT Pulse 76 08/13/2023 9:09 AM CDT Temperature 36.5 ??C (97.7 ??F) 02/27/2023 2:54 PM CS T Respiratory Rate 18 02/01/2021 7:10 PM AUTO ELECTRICAL TECHNICIAN Oxygen Saturation 95% 08/13/2023 9:09 AM CDT Inhaled Oxygen Concentration - - Weight 62.5 kg (137 lb 12.8 oz) 08/13/2023 9:09 AM CDT Height 162.8 cm (5' 4.09) 06/18/2023 7:55 AM CD T Body Mass Index 23.58 06/18/2023 7:55 AM CDT Plan of Treatment Upcoming Encounters Date Type Department Care Team (Late st Contact Info) Description 03/31/2024 7:30 AM AUTO ELECTRICAL TECHNICIAN Orders Only [facility] [address] [place] [address] [place], [place] 04/07/2024 9:15 AM AUTO ELECTRICAL TECHNICIAN Office Visit [facility] [address] [place] [address] Forrest Wilson MD [address] [place] [address] Health Maintenance Due Date Last Done Comments RSV vaccine for adults or (1 - 1-dose 60+ series) 2006 Zoster (shingles) series for age 50+ (2 of 3) 06/21/2010 04/26/2010 COVID-19 vaccine series (2022- season) 2023 10/31/2021, 01/18/2021, 04/22/2020, Additional history exists Influenza [...] Procedure Name Priority Date/Time Associated Diagnosis Comments XR FOOT 3 VIEWS LEFT Routine 08/13/2023 10:10 AM CDT Foot pain, left HEMOGLOBIN A1C Routine 08/13/2023 8:53 AM CDT Controlled type 2 diabetes mellitus with complication, without long-term current use of insulin (HC) ANTI HCV Routine 01/01/2016 10:53 AM AUTO ELECTRICAL TECHNICIAN Need for hepatitis C screening test XR DXA BONE DENSITY 2 SITES AXIAL Routine 06/11/2013 9:30 AM CDT Osteopenia from Last 3 Months or Most Recently Relevant to Health Maintenance Results * XR FOOT 3 VIEWS LEFT (08/13/2023 10:10 AM CDT) Anatomical Region Laterality Modality FEET, FOOT L Computed Radiogr aphy 08/13/2023 4:17 PM CDT Narrative 08/13/2023 4:17 PM CDT For Patients: ??As a result of the Cures Act, medical imaging exams and procedure reports are released immediately into your electronic medical record. ??You may view this report before your referring provider. ??If you have questions, please contact your health care provider. Indication: Left foot pain. Technique: Left foot 3 views Comparison: None Findings: Tiny calcaneal spurs are present. Midfoot alignment is normal. The mild bunion noted. No fracture. Impression: Mild bunion and tiny calcaneal spurs. No fracture. Dictated by Enrique Rosario MD @ 08/13/2023 4:17:29 PM (Electronically Signed) Procedure Note Enrique Rosario MD - 08/13/2023 For Patients: As a result of the Cures Act, medical imagingexams and procedure reports are released immediately into your electronicmedical record. You may view this report before your referring provider.If you have questions, please contact your health care provider. Indication: Left foot pain. Technique: Left foot 3 views Comparison: None Findings: Tiny calcaneal spurs are present. Midfoot alignment is normal. The mildbunion noted. No fracture. Impression: Mild bunion and tiny calcaneal spurs. No fracture. Dictated by Enrique Rosario MD @ 08/13/2023 4:17:29 PM (Electronically Signed) Forrest Wilson MD GENERAL IMAGIN G * (ABNORMAL) HEMOGLOBIN A1C MONITORING (POCT) (08/13/2023 8:53 AM CDT) Pathologist [facility] HEMOGLOBIN A1C MONITORING (POCT) 7.4(H) <=6.4 % 08/13/2023 9:04 AM CDT [facility] Blood BLOOD SPECIMEN / Unknown Venipuncture / Unknown 08/13/2023 8:53 AM CDT 08/13/2023 8:54 AM CDT Narrative [facility] - 08/13/2023 9:04 AM CDT ? (<=6.9%) ? Indicates good control ? (7.0% to 7.9%) ? Indicates fair control ? (>=8.0%) ? Indicates poor control ?? NOTE: ??These thresholds are guidelines and ?individual targets may vary. Falsely low levels may be seen with: Recent Transfusion, Recent Significant Blood Loss, Hemolytic Diseases, or Falsely elevated levels may be seen with: Untreated Anemias, Splenectomy ? Forrest Wilson MD CHEMISTRY [facility] [address] [place] [address], * ANTI HCV [68525.2] (01/01/2016 10:53 AM AUTO ELECTRICAL TECHNICIAN) Pathologist [facility] HEPATITIS C ANTIBODY Non-Reacti ve Non-Reacti ve 01/01/2016 8:55 PM AUTO ELECTRICAL TECHNICIAN [facility] Blood BLOOD SPECIMEN / Unknown Venipuncture / Unknown 01/01/2016 10:53 AM AUTO ELECTRICAL TECHNICIAN 01/01/2016 10:53 AM AUTO ELECTRICAL TECHNICIAN Narrative [facility] - 01/01/2016 8:55 PM AUTO ELECTRICAL TECHNICIAN Antibodies to HCV not detected; does not exclude the possibility of exposure to HCV. Mandeep Hernandez DO SEND OUTS [facility] [address] [place] [address], [place] * (ABNORMAL) XR DXA BONE DENSITY [...] or Most Recently Relevant to Health Maintenance Insurance Payer Benefit Plan / Group Subscriber ID Effective Dates Phone Address Type MEDICARE PART B - HB USE ONLY MEDICARE PART B HB ONLY [id number] 2011-Presen t ATTN: CLAIMS [address] [place] [address] MEDICARE PART B - HB USE ONLY MEDICARE PART B HB ONLY [id number] 2011-Presen t ATTN: CLAIMS [address] [place] [address] MEDICARE PART A - HB USE ONLY MEDICARE PART A HB ONLY [id number] 2011-Presen t ATTN: CLAIMS [address] [place] [address] MEDICA MR MEDICA [employer] MR PB ONLY [id number] 2017-Presen t [address] [address] [place] [address] BLUE CROSS MR MR BC [place] [id number] 2014-P resen t [address] [place] [address] MEDICA MEDICA [employer]IME SOL[employer] [place] [id number] 2023-Presen t [address] [address] [place] [address] Advance Directives Documents on File Type Date Recorded Patient Robotics Application Engineer Expl anation Healthcare Directive 06/03/2016 1:07 PM LI MALIKARikki WILL and HEALTHCARE SURROGATE, 10/10/2015 * Full Code (Latest Code Status on File) Date Activated Date Inactivated Comments 08/29/2017 9:30 AM 08/29/2017 3:22 PM * Full Code Date Activated Date Inactivated Comments 08/29/2017 9:30 AM 08/29/2017 9:30 AM * Full Code Date Activated Date Inactivated Comments 07/24/2017 7:02 AM 07/24/2017 4:[address] Light Wirer Relationship Specialty Start Date End Date Forrest Wilson MD [address] [place] [address] PCP - General Family Practice 05/17/16 Negrita London RN [address] [place] [address] Knitter Wire Mesh 11/09/19
--- OUTSIDE RECORDS SUMMARY | 2023-10-19 14:56 | XMS_ITS | Clinical Summary ---
Author Organization [facility] Address [address] [place] [address] Care Team Providers Care Territory Representative Name Role Phone System, Provider Not In [...] by mouth 09/12/2020 Active cholecalciferol 50 MCG (2000 UT) tablet Take 2,000 Units by mouth [...] 1964 LUNG CANCER SCREENING 1996 RSV VACCINE (1 - 1-dose 60+ series) 2006 ZOSTER IMMUNIZATION (2 of 3) 06/21/2010 04/26/2010 FALL RISK ASSESSMENT 08/22/2011 MEDICARE ANNUAL WELLNESS VISIT 03/26/2022 03/26/2021 PHQ-2 (once per calendar year) 2023 COVID-19 Vaccine ( season) 2023 01/18/2021, 04/22/2020, 04/01/2020 INFLUENZA VACCINE (#1) 2023 , 11/16/2019, 11/03/2018, Additional history exists GLUCOSE 05/24/2024 [...] includes age and gender (Johan et al., NEJ, DOI: 10.1056/[id number]) Blood STRUCTURE OF LEFT HAND / Unknown Venipuncture / Unknown 05/24/2021 1:19 PM CDT 05/24/2021 1:28 PM CDT Calvin Murillo MD LAB - BLOOD OR DERABLES RH LABORATORY [facility] Lab [address] Lab (1st floor, no room number) [place] [address], [facility] [phone] from Last 3 Months or Most Recently Relevant to Health Maintenance Care Teams Territory Representative Relationship Specialty Start Date End Date System, Provider Not In PCP - General Clinic 05/21/21
--- OUTSIDE RECORDS SUMMARY | 2023-10-19 14:56 | XMS_ITS | Referral Summary ---
Author Organization [facility] Address [address] [place] [address] Care Team Providers Care Mining Detail Draftsperson Name Role Phone System, Provider Not In [...] Comprehensive metabolic panel (05/24/2021 1:19 PM CDT) [facility] Signature Sodium 139 133 - 144 mmol/L 05/24/2021 [...] and gender (Johan et al., NEJM, DOI: 10.1056/[id number]) Blood STRUCTURE OF LEFT HAND / Unknown Venipuncture / Unknown 05/24/2021 1:19 PM CDT 05/24/2021 1:28 PM CDT Calvin Murillo MD LAB - BLOOD OR DERABLES LABORATORY [facility] Acute Care Lab [address] [facility] Lab (1st floor, no room number) [place] [address], [facility] [phone] from Last 3 Months or Most Recently Relevant to Health Maintenance Care Teams Mining Detail Draftsperson Relationship Specialty Start Date End Date System, Provider Not In PCP - General Clinic 05/21/21
== END 2023-10-15 11:56 | disposition home or self-care (01) ==
LOC: NFLDREF 10-19 14:53
PROVIDERS: PCP Family Medicine; Referring Provider Family Medicine; Visit Provider Nurse Practitioner Family
DX: N30.90 Cystitis, unspecified without hematuria (principal); B96.20 Unspecified Escherichia coli [E. coli] as the cause of diseases classified elsewhere
CPT/HCPCS: 87086; 87186

== ENCOUNTER 2024-02-21 11:38 | Outpatient (CLI) | payer MEDICARE, OTHER, SELFPAY ==
[2024-02-21 15:54] LABS: D Dimer Quantitative* 0.29 ug/ml (0.00-0.50)
== END 2024-02-21 11:39 | disposition home or self-care (01) ==
LOC: NFLDUCREF 11:39
PROVIDERS: PCP Family Medicine; Visit Provider Nurse Practitioner Family
DX: R05.9 Cough, unspecified (principal); R06.02 Shortness of breath
CPT/HCPCS: 85379

== ENCOUNTER 2024-06-07 09:33 | Outpatient (CLI) | payer MEDICARE, OTHER, SELFPAY ==
--- NOTE | 2024-06-07 10:00 | CRLHL7_ITS ---
For Patients: As a result of the Century Cures Act, medical imaging exams and procedure reports are released immediately into your electronic medical record. You may view this report before your referring provider. If you have questions, please contact your health care provider. INDICATION: MALIGNANT NEOPLASM OF UPPER LOBE OF RIGHT LUNG TECHNIQUE: CT chest without contrast. COMPARISON: 03/17/[address] [facility] FINDINGS: Lungs and pleura: 1.5 x 1.0 cm spiculated anterior right upper lobe nodule has become solid since the prior exam and measures slightly larger. There is mild adjacent parenchymal scarring and nodularity which could be post treatment change. Increased peripheral micronodularity in reticulation in both lungs since the prior study. Heart and vasculature: Heart size is normal. Thoracic aorta and pulmonary artery are normal in caliber. Lymph nodes/mediastinum: No mediastinal, hilar, or axillary adenopathy. Thyroid is enlarged and low-density but unchanged. Chest wall: No masses. Upper abdomen: Liver cysts. Bones: Unremarkable for age. IMPRESSION: 1. Spiculated right upper lobe nodule has become more solid and has enlarged since the prior exam. Viable tumor not excluded. Consider PET-CT. 2. Increased peripheral reticulation and micronodularity is nonspecific but is less likely to be malignant. Please note that all CT scans at this facility use dose modulation, iterative reconstruction, and/or weight-based dosing when appropriate to reduce radiation dose to as low as reasonably achievable. Dictated by Agapito Encinas MD @ 06/08/2024 11:56:08 AM (Electronically Signed)
== END 2024-06-07 09:34 | disposition home or self-care (01) ==
LOC: CT 09:35
PROVIDERS: PCP Family Medicine; Visit Provider Radiology Radiation Oncology
DX: C34.11 Malignant neoplasm of upper lobe, right bronchus or lung (principal)
CPT/HCPCS: 71250

== ENCOUNTER 2024-08-24 10:33 | Outpatient (CLI) | payer MEDICARE, OTHER, SELFPAY ==
--- NOTE | 2024-08-24 11:00 | CRLHL7_ITS ---
For Patients: As a result of the Century Cures Act, medical imaging exams and procedure reports are released immediately into your electronic medical record. You may view this report before your referring provider. If you have questions, please contact your health care provider. Indication: FOLLOW UP LUNG CANCER POST RADIATION Noncontrast CT chest : Please note that all CT scans at this facility use dose modulation, iterative reconstruction, and/or weight-based dosing when appropriate to reduce radiation dose to as low as reasonably achievable. Comparison: 06/07/2024 Findings: Stable low-density cystic structure within the liver. Unchanged calcification in the spleen. Dense vascular calcifications. Similar appearance of the thyroid with multiple cystic areas. No enlarged intrathoracic lymph nodes. Spiculated mass within the right upper lung anteriorly is similar, measuring 1.5 x 1.0 cm. Similar adjacent pleural-parenchymal densities in the anterior right lung. Possible developing nodule within the right lower lung, measuring 4 millimeters, 3/51. Reticulonodular scarring within the dependent right lower lobe is similar. Also similar reticular scarring in the left lower lobe. Developing subpleural density within the left lung apex measuring up to 13 millimeters, 4/44. Faint ground-glass density within the left upper lobe also noted measures 9 millimeters, 4/18. No fracture or intrinsic osseous lesion. Impression: Developing left posterior apical subpleural density measuring 1.3 cm. Possible developing nodular density in the right lower lobe measuring 4 millimeters. Also possible new ground-glass density in the left upper lobe measuring 9 millimeters. Stable spiculated nodule anterior right lung with adjacent reticulonodular densities. Stable reticular/reticulonodular scarring elsewhere throughout the lungs. No adenopathy. Stable appearance of the liver and spleen, as visualized. Please note that all CT scans at this facility use dose modulation, iterative reconstruction, and/or weight-based dosing when appropriate to reduce radiation dose to as low as reasonably achievable. Dictated by Enrique Rosario MD @ 08/24/2024 3:13:06 PM (Electronically Signed)
== END 2024-08-24 10:34 | disposition home or self-care (01) ==
LOC: CT 10:34
PROVIDERS: PCP Family Medicine; Visit Provider Physician Assistant
DX: C34.11 Malignant neoplasm of upper lobe, right bronchus or lung (principal)
CPT/HCPCS: 71250

== ENCOUNTER 2024-10-21 14:53 | Outpatient (CLI) | payer MEDICARE, OTHER, SELFPAY ==
--- NOTE | 2024-10-21 15:00 | CRLHL7_ITS ---
For Patients: As a result of the Century Cures Act, medical imaging exams and procedure reports are released immediately into your electronic medical record. You may view this report before your referring provider. If you have questions, please contact your health care provider. CLINICAL HISTORY: Lung cancer. TECHNIQUE: Following IV injection of 25-mtrkba-7-deoxyglucose (FDG) and a standard uptake period of approximately 60 minutes, a non-contrast CT scan followed by a PET scan were acquired along the length of the body from the mid portion of the head to the mid thighs. The non-contrast CT was used for anatomic localization and photon attenuation correction of the PET scan. Blood Glucose Level (mg/dL): 157 FDG Dose (mCi): 14.7 COMPARISON: Chest CT scans dated 24 August 2024 and 07 June 2024. FINDINGS: Head/Neck: 7 mm lesion in the posterior aspect of the left parotid gland, SUV max 5.2. Heterogeneity of the thyroid gland, SUV max 3.0. No other abnormal activity identified in the head and neck. Chest: A few small right hilar lymph nodes SUV max 3.7. No mediastinal adenopathy. No axillary adenopathy. Atherosclerotic vascular calcifications. The lungs show a 1.5 cm pulmonary nodule in the anterior aspect of the right upper lobe, SUV max 2.5. Small focal airspace opacity in the lateral aspect of the right upper lobe, SUV max 3.1, is new. Scattered small bilateral pulmonary nodules are unchanged. No pneumothorax. Abdomen/Pelvis: 3.9 x 2.4 cm cyst in the anterior aspect of segment 4 of the liver. No other focal abnormalities identified in the visualized portions of the liver, spleen, pancreas, adrenal glands, and kidneys. No hydronephrosis. Increased activity in the colon and distal small bowel with no corresponding CT abnormality is likely physiologic. The remainder of the GI tract is incompletely distended but shows no gross abnormalities. No retroperitoneal, pelvic sidewall, or mesenteric adenopathy. Atherosclerotic vascular calcifications. Bones: Degenerative changes of the spine. No abnormal skeletal activity identified. IMPRESSION: 1. Small lesion in the left parotid gland shows increased activity and could represent a primary parotid lesion. Recommend follow-up ultrasound for further evaluation. 2. 1.5 cm pulmonary nodule in the anterior aspect of the right upper lobe and a small right hilar lymph node show mildly increased activity, and could represent residual lung cancer. 3. Small focal airspace opacity in the lateral aspect of the right upper lobe is new and may represent a infectious/inflammatory process. Dictated by Arley Turpin MD @ 10/25/2024 2:10:39 PM (Electronically Signed)
== END 2024-10-21 14:54 | disposition home or self-care (01) ==
LOC: RAD 14:54
PROVIDERS: PCP Family Medicine; Visit Provider Physician Assistant
DX: C34.11 Malignant neoplasm of upper lobe, right bronchus or lung (principal); D11.0 Benign neoplasm of parotid gland; R91.8 Other nonspecific abnormal finding of lung field
CPT/HCPCS: 78815; A9552

== ENCOUNTER 2025-01-17 12:32 | Outpatient (CLI) | payer MEDICARE, OTHER, SELFPAY ==
--- NOTE | 2025-01-17 13:00 | CRLHL7_ITS ---
For Patients: As a result of the Century Cures Act, medical imaging exams and procedure reports are released immediately into your electronic medical record. You may view this report before your referring provider. If you have questions, please contact your health care provider. Indication: FOLLOW UP OF LUNG CANCER Technique: CT Chest 75CC ISOVUE 370 intravenous contrast Please note that all CT scans at this facility use dose modulation, iterative reconstruction, and/or weight-based dosing when appropriate to reduce radiation dose to as low as reasonably achievable. Comparison: CT 08/24/2024, CT-PET 10/21/2024 Findings: Similar spiculated lesion within the right upper lobe measures 1 cm, . Left upper lobe nodular densities are now present which measure up to 6.3 millimeters, best appreciated on the coronal reformatted images, . Increased right apical parenchymal densities are present including a more focal density measuring 1.1 cm in the medial right lung apex, . Smaller nodules are present within the lateral aspect of the right lung apex which are probably similar measuring up to 3.8 millimeters. Chronic COPD/chronic bronchitis. Small nodular densities in the right lower lobe posteriorly are similar. No pleural effusion or pericardial effusion. Stable appearance of the thyroid with multiple low-density nodules. Similar appearance to the right hilum. Upper abdomen unchanged with intrahepatic cyst. No fracture. Impression: Similar 1 cm right upper lobe nodule. Increased nodular densities within both lung apices measuring up to 1.1 cm. Stable appearance of the right hilum with mild prominence of a right hilar lymph node. COPD/chronic bronchitis with chronic scarring posterior right lower lobe. Stable low-density thyroid nodules. Please note that all CT scans at this facility use dose modulation, iterative reconstruction, and/or weight-based dosing when appropriate to reduce radiation dose to as low as reasonably achievable. Dictated by Enrique Rosario MD @ 01/17/2025 3:32:26 PM (Electronically Signed)
[2025-01-17 13:03] LABS: Creatinine* 0.9 mg/dL (0.5-1.5); Estimated Glomerular Filt Rate 65 ml/min
== END 2025-01-17 12:33 | disposition home or self-care (01) ==
LOC: CT 12:33
PROVIDERS: PCP Family Medicine; Visit Provider Nurse Practitioner
DX: C34.11 Malignant neoplasm of upper lobe, right bronchus or lung (principal); E04.1 Nontoxic single thyroid nodule
CPT/HCPCS: 36415; 71260; 82565; Q9967